=== PATIENT | female | born 1970 | race Caucasian/White ===

== ENCOUNTER → 2017-06-11 20:16 | Outpatient (CLI) | payer OTHER, SELFPAY | PROVIDERS: Family Provider Nurse Practitioner Family; PCP Nurse Practitioner Family; Visit Provider Internal Medicine Cardiovascular Disease | DX: G47.10 Hypersomnia, unspecified (principal); E66.01 Morbid (severe) obesity due to excess calories; Z68.41 Body mass index [BMI] 40.0-44.9, adult; I10 Essential (primary) hypertension; I27.20 Pulmonary hypertension, unspecified; R06.09 Other forms of dyspnea | CPT/HCPCS: 95810 ==

== ENCOUNTER → 2017-06-28 10:26 | Outpatient (CLI) | payer OTHER, SELFPAY ==
--- NOTE | 2017-06-28 10:28 | STEWCON_ITS ---
Reason For Study: Pulmonary HTN Stress Results Protocol: Randy Protocol Maximum Predicted HR: 172 bpm Target HR: 146 bpm% Max imum Predicted HR: 85 % DurationHeart Rate Stage (mm:ss) (bpm) BPCom ment Baseline 74 144/96 Definity 2 ML Diluted Given; No Chest Pain Randy Protocol Stage I 3:00 12 3 152/96No Chest Pain; Mild Dyspnea Randy Protocol Stage II 3:00 14 6 168/98No Chest Pain; Moderate to Severe Dyspnea Recovery 87 142/96 No Chest Pain Stress Duration: 6:00 mm:ss Maximum Stress HR: 146 bpmM ETS: 7 Baseline Echocardiogram Findings The estimated ejection fraction is 65 %. Stress Echo Wall motion Data Resting WMIntermediate WMStress WM Resting Wall Motion Wall Motion Stress No regional wall motion No regional wall motion abnormalities noted. abnormalities noted. EKG Data Normal intervals are noted. The patient exercised according to the regular Randy protocol for a total duration of 6:00. The maximum heart rate attained was 150 beats per minute. This was 87% of maximum predicted heart rate. The patient exercised into stage 3 of the Randy protocol. During stress, there were no ST or T wave changes noted to suggest ischemia. No clinical angina was noted. Interpretation Summary The study was technically difficult. Contrast injection was performed. The estimated ejection fraction is 65 %. Normal, adequate, treadmill echocardiogram. Negative for ischemia by EKG and echocardiographic anterior. No anginal symptoms noted. Rare PVCs noted. Appropriate blood pressure response to exercise. Below average exercise capacity for age. Test terminated due to dyspnea. Decreased sensitivity due to poor echo windows requiring Definity contrast. Doppler Measurements & Calculations TR max petey: 308.5 cm/sec TR max P.4 mmHg Ordering Physician: Juan C Fernandes Referring Physician: Juan C Fernandes Performed By: Brooklyn Bean, JANI, RVT
== END ==
PROVIDERS: Family Provider Nurse Practitioner Family; PCP Nurse Practitioner Family; Visit Provider Internal Medicine Cardiovascular Disease
DX: I10 Essential (primary) hypertension (principal); I27.20 Pulmonary hypertension, unspecified; R06.09 Other forms of dyspnea
CPT/HCPCS: 93017; 93350; Q9957; A4216; C8928

== ENCOUNTER → 2017-09-24 07:56 | Outpatient (CLI) | payer OTHER, SELFPAY ==
--- NOTE | 2017-09-24 16:36 | PFTCOMP_ITS ---
COMPLETE PULMONARY FUNCTION TEST INTERPRETATION Brief HPI: Patient is a 47 year old female, currently under the care of Brittanie Martino, who presents to [facility] for complete pulmonary function tests secondary to diagnosis of dyspnea on exertion. Respiratory therapist reports good effort and reproducible results. Interpretation: Forced expiration spirometry shows a mild large airways obstructive ventilatory defect with an FEV1 of 80% predicted. There is a significant bronchodilator response in FEV1 by ATS criteria. Spirograms are of good quality and plateau slowly, indicating slowly emptying areas of the lungs. The respiratory flow volume loop shows decreased expiratory flow rates at all lung volumes consistent with airway obstruction. Lung volumes by body plethysmography show a normal total lung capacity at 4.76 L , 99% predicted. All other lung volumes are within normal limits. Diffusion capacity by carbon monoxide is normal at 73% predicted. The airway resistance is normal. No previous pulmonary function tests were available for review. Impression: Fully reversible mild large airways obstructive ventilatory defect consistent with the diagnosis of asthma.
== END ==
PROVIDERS: Family Provider Nurse Practitioner Family; PCP Nurse Practitioner Family; Visit Provider Nurse Practitioner Acute Care
DX: R06.09 Other forms of dyspnea (principal)
CPT/HCPCS: 94060; 94726; 94729

== ENCOUNTER → 2017-10-09 13:10 | Outpatient (CLI) | payer OTHER, SELFPAY ==
--- NOTE | 2017-10-09 13:15 | CT_ITS ---
STUDY: CT CHEST WITHOUT CONTRAST REASON FOR EXAM: Female, 47 years old. Lower right lung nodule. RADIATION DOSAGE (If Supplied By Facility): CTDIvol = ( 19.85 ) mGy, DLP = ( 643.81 ) mGycm TECHNIQUE: Transaxial imaging was performed without the administration of intravenous contrast material. Coronal and sagittal 2-D MPR. Individualized dose optimization techniques were used for this CT. COMPARISON: None. FINDINGS: Supraclavicular: Normal. Thoracic body wall soft tissues: No acute process. Upper abdomen: Diffuse hepatic steatosis with probable hepatomegaly. No other acute process. Osseous structures: Multiple old right-sided posterior lateral rib fractures with incomplete healing, forming mildly hypertrophic pseudoarthrosis. This could easily be mistaken for pulmonary nodule in the right mid to lower lung on chest x-ray. Mild kyphoscoliosis and mild multilevel thoracic degenerative disc disease. Based on: Normal esophagus. No mass or lymphadenopathy. Heart: Normal heart size without effusion. Mild epicardial lipomatosis. No visible coronary calcifications. Aorta: Nondilated, three-vessel cervical arch branching. Pulmonary arteries: Nondilated. Lungs: There is patchy subpleural reticulation in portions of the anterior basilar segment of the right upper lobe, lateral basilar segments of the right lower lobe, posterior basilar right lower lobe, posterior basilar left lower lobe, and lateral pleural margins of the left upper lobe anterior segment. These chronic interstitial features may reflect prior smoking history. There is no fibrosis. No honeycombing or bronchiectasis. There are no isidoro features of centrilobular or paraseptal emphysema nor any significant pulmonary hyperlucency and hyperinflation that would indicate COPD. The central airways are normal. CT/Chest without Contrast IMPRESSION: There is no evidence of pulmonary nodule. Hypertrophic pseudoarthrosis of old right posterior rib fractures could easily be mistaken for a pulmonary nodule on a frontal chest x-ray. Chronic interstitial changes of the lungs, subpleural reticulation, multifocal, potentially reflecting prior smoking history. Clinically correlate. Hepatic steatosis with suspected hepatomegaly. Electronically Signed: Blas Kerr, at 18:44 EDT Tel , Service support ,
== END ==
PROVIDERS: Family Provider Nurse Practitioner Family; PCP Nurse Practitioner Family; Visit Provider Internal Medicine Critical Care Medicine
DX: R91.1 Solitary pulmonary nodule (principal)
CPT/HCPCS: 71250

== ENCOUNTER → 2017-10-16 22:34 | Outpatient (CLI) | payer OTHER, SELFPAY | PROVIDERS: Family Provider Nurse Practitioner Family; PCP Nurse Practitioner Family; Visit Provider Internal Medicine Critical Care Medicine | DX: G47.33 Obstructive sleep apnea (adult) (pediatric) (principal) | CPT/HCPCS: 95811 ==

== ENCOUNTER → 2018-03-29 11:23 | Outpatient (CLI) | payer OTHER, SELFPAY ==
[2018-01-10 07:12] VITALS: BMI 42.8
--- NOTE | 2018-03-29 | LES_PTH ---
PATIENT: DAGOBERTO KOENIG LOC: [facility] U#:[id number] AGE/SX: 54/F ROOM: RE03/29/[address]: Dr. Shyann Weinstein DPM : 1970 BED: DIS: SPEC #: [id number] RECD: 03/29/18 13:08 STATUS: QASIM CAITLYN #: [id number] WILLIAM: 03/29/18 00:[address]: Shyann Weinstein DEPT: SURGICAL PATHOLOGY RECD BY: Loki Guaman ENTERED: 03/29/18 13:09 SP TYPE: Lesion OTHR DR: Dr. Mustapha Gonzales MD Tissues: A - Skin of ankle and foot B - Skin of ankle and foot Procedures: Special Stain Group I Surgery Specimen Level IV AFB Stain (control) GMS Stain (control) HEADER OPERATION: Tissue biopsy PRE-OP DIAGNOSIS: I89.8, M30.8 TISSUE SUBMITTED: A - Lateral right ankle, B - Medial right ankle MICROSCOPIC DIAGNOSIS A. Right lateral ankle, punch biopsy: Consistent with polyarteritis nodosa. B. Right medial ankle, punch biopsy: Consistent with polyarteritis nodosa. AM:tamela 04/10/18 COMMENT This case was seen in consultation with Dr. Wynn of [place] and the above diagnosis is rendered. Reference is made to the patient's previous left leg biopsy from [facility] ([id number]) in which diagnosis of polyarteritis nodosa was rendered. Special stains for acid fast bacilli and fungal organisms are negative for microorganisms; matched controls are appropriate. Case has been reviewed in consultation with Dr. Macedo and Dr. Jerez who concurs with the above diagnosis. IDC:[email or web address] MICROSCOPIC DESCRIPTION Slides are reviewed. GROSS DESCRIPTION A - Received in fixative is one container labeled with the patient's name and designated lateral right ankle. The specimen consists of two irregular fragments of pink-glasgow soft tissue that in aggregate measure 1 x 0.6 x 0.3 cm. The larger fragment is bisected and submitted along with the smaller fragment in one cassette. B - Received in fixative is one container labeled with the patient's name and designated medial right ankle. The specimen consists of two cylindrical fragments of glasgow-white soft tissue. Each core measures 0.7 cm in length and averages 0.4 cm in diameter. The larger fragment is bisected in a lengthwise fashion and totally submitted with the other fragment in one cassette. / AM:tamela 03/29/18 TC:2 CPT: 39628 x2, 41243 x4 ADDENDUM ADDENDUM ADDENDUM ADDENDUM ADDENDUM ADDENDUM ADDENDUM ADDENDUM ADDENDUM ADDENDUM ADDENDUM ADDENDUM 04/24/2018 11:43 ADDENDUM 04/24/2018 11:43 ADDENDUM 04/24/2018 11:43 ADDENDUM 04/24/2018 11:43 ADDENDUM 04/24/2018 11:43 This addendum is added to incorporate an outside pathology consultation report. The case was examined at [facility] (#[id number]) and the following diagnosis was rendered. A. Skin, right lateral ankle, punch biopsy: Consistent with polyarthritis nodosa. B. Skin, right middle ankle, punch biopsy: Consistent with polyarthritis nodosa. Please see complete above mentioned consultation report in EMR
== END ==
PROVIDERS: Family Provider Internal Medicine Infectious Disease; PCP Internal Medicine Infectious Disease; Referring Provider Podiatrist Foot & Ankle Surgery; Visit Provider Podiatrist Foot & Ankle Surgery
DX: M00-M99 Diseases of the musculoskeletal system and connective tissue (principal); I89.8 Other specified noninfective disorders of lymphatic vessels and lymph nodes
CPT/HCPCS: 88305; 88312

== ENCOUNTER → 2018-06-20 09:56 | Outpatient (CLI) | payer OTHER, SELFPAY ==
[2018-01-10 07:12] VITALS: BMI 42.8
--- NOTE | 2018-06-20 10:57 | PFTCOMP_ITS ---
COMPLETE PULMONARY FUNCTION TEST INTERPRETATION Brief HPI: Patient is a 48 year old female, currently under the care of myself, who presents to [facility] for complete pulmonary function tests secondary to diagnosis of asthma. Respiratory therapist reports good effort and reproducible results. Interpretation: Forced expiration spirometry shows no large airways obstructive ventilatory defect with an FEV1 of 99% predicted. There is no significant bronchodilator response by strict ATS criteria. Spirograms are of good quality and plateau normally. The respiratory flow volume loop shows a normal pattern. Lung volumes by body plethysmography show a normal total lung capacity at 4.14 L, 87% predicted. All other lung volumes are within normal limits. Diffusion capacity by carbon monoxide is normal at 94% predicted. The airway resistance is normal. No previous pulmonary function tests were available for review. Impression: Normal pulmonary function testing.
== END ==
PROVIDERS: Family Provider Internal Medicine Infectious Disease; PCP Internal Medicine Infectious Disease; Referring Provider Internal Medicine Critical Care Medicine; Visit Provider Internal Medicine Critical Care Medicine
DX: J45.40 Moderate persistent asthma, uncomplicated (principal)
CPT/HCPCS: 94060; 94726; 94729

== ENCOUNTER → 2018-09-26 | Outpatient (CLI) | payer OTHER, SELFPAY ==
[2018-10-04 11:41] LABS: HPV APTIMA, High Risk Negative (Negative)
== END | disposition home or self-care (01) ==
LOC: BFHLAB 08:56
PROVIDERS: Family Provider Family Medicine; PCP Family Medicine; Visit Provider Family Medicine
DX: Z12.4 Encounter for screening for malignant neoplasm of cervix (principal)
CPT/HCPCS: 88175; G0145

== ENCOUNTER 2019-04-28 09:00 | Outpatient (RCR) | payer OTHER, SELFPAY ==
[2019-04-02 08:32] VITALS: BMI 42.8
--- NOTE | 2019-04-28 09:05 | BH.SGPN.GN ---
Behaviors/Verbalizations/Mental Status: []Client alert and oriented, neatly dressed and groomed. Eye contact good. Motor activity appropriate. Speech within normal limits. Affect flat-tearful, mood depressed. Thoughts linear, logical, no signs of hallucinations or delusions. Reviewed client?s symptom tracker, no risk for suicidal ideation, plan, or intent as of 04/28/19. Client Response/Progress/Benefit: []Client responded well to session, receptive to positive support and feedback. Client's first day of IOP tx. Client reports feeling sad today and was opening to sharing a little bit about herself. Client did not go into detail, but shared she has been living with her mother because of her mental health and difficulty functioning. Client reported she is new to addressing her mental health and she did not want to come to the IOP program, but gave it a try. Client was tearful throughout session and was receptive to emotional support provided by therapist and group members. Client appeared to benefit from normalizing her emotions, connecting with peers, and receiving emotional support. Will continue IOP tx to prevent decompensation, maintain safety, and learn healthy coping skills. Narrative Note: []
--- NOTE | 2019-04-28 11:18 | BH.SGPN.GN ---
Behaviors/Verbalizations/Mental Status: []Client alert and oriented, casually dressed and groomed. Eye contact good. Motor activity appropriate. Speech within normal limits. Affect congruent, mood depressed. Thoughts linear, logical, no signs of hallucinations or delusions. Client Response/Progress/Benefit: []Client?engaged during session AEB client providing some contributions throughout group session, taking notes, and actively listening during thought challenging activity. Client acknowledged the importance of needing to have awareness and put forth the effort to challenge, reframe, and replace distorted thought patterns. Connected with comments regarding difficulties in challenging use of negative self-talk. Client worked cooperatively with group to challenge example distorted thought and was attentive in learning strategies to combat distortions. Client reported connecting with distortion of disqualifying the positive most and identified a distorted thought she will practice reframing. Client seemed to benefit from increased awareness of cognitive distortions and practicing reframing distorted thoughts. Client to continue IOP level of care to challenge negative thoughts, reduce depression and anxiety, and prevent decompensation. Narrative Note: []
--- NOTE | 2019-04-28 13:29 | BH.COMM ---
Communication Note - Communication with Client Communication Note: This therapist checked-in with client after her first day of IOP. Therapist introduced self as client's individual counselor and answered client's questions about the program.
--- NOTE | 2019-04-30 08:20 | BH.NA_ITS ---
Physical Data - Vital Signs Pulse Rate: 82 Respiratory Rate: 18 Blood Pressure: 120/68 - Height/Weight Height: 1.6 m Weight:: 115.212 kg Weight in Pounds: 254.0 lbs Current Medication Compliance - Medication Compliance Do you take your medication as prescribed?: Yes Nutritional History - Appetite Nutritional Instructions:: If client shows signs of a swallowing problem, weight change of 10 pounds or more in the last month, or is on a diabetic diet, the physician will review and request a dietitian consult, as appropriate. All unintentional weight loss will be referred to the physician for decision on need for dietitian consult. Describe your appetite:: Good Have you noticed a change in your eating habits lately?: Yes Additional nutritional information:: Client takes a steroid chronically, somtimes high-dose. Client states she has had large amount of weight gain while taking steriod medication for her polyarteritis nodosa. Functional Assessment - Sleep Pattern Describe any problems with sleeping: Client states she has noticed her sleep has improved since started Effexor. Client states she used to sleep only 2-4 hours per night and now is sleeping 6-8 hours per night. - Activities Motor Activity:: Functional Sensory/Communication Assess - Vision Problems Do you have any vision problems?: Glasses - Communication Problems Do you have difficulty understanding what people are saying?: No Medical Problems/History - Cardiac Conditions Cardiovascular: Hypertension, Pulmonary hypertension Comments:: heart murmur - Respiratory Conditions Respiratory: Asthma, Other (See comments) Comments:: obstructive sleep apnea - Hematologic Conditions Hematologic: Hx of blood clot Comments:: history of PE's in January 2019 - Musculoskeletal Conditions Musculoskeletal: Other (See comments) Comments:: polyarteritis nodosa - Pain Assessment Do you have acute or chronic pain?: Yes - back pain, sciatica - Family History Family History: Family History (Last Reviewed 04/02/19 @ 08:24 by Meghan Knutson) Father Sudden cardiac CAD (coronary artery disease) Other Asthma Heart disease High cholesterol History of hormone disturbance Hypertension Myocardial infarction Severe allergy Surgical History - Surgical History Have you had any surgeries? If so, list type and date:: Yes - right knee ACL, balloon sinuplasty, endometrial ablation, appendectomy Substance Abuse - Substance Abuse Please describe substance abuse in the last 30 days:: Client states in the fall, she was heavily drinking, mostly whiskey, but does not know how much. Client states she does not remember much of what she has done in the last 6 months. Client states her brought up her drinking amount to her and she stopped drinking alcohol completely and does not have any in the house. Client denies tobacco and drug use. Mental Status Summary - Mental Status Significant Findings/Observations on Appearance and Mood:: Client is alert and oriented x 4. Client casually groomed, good hygiene. Client very pleasant and cooperative for assessment. Client makes good eye contact and has good attention for assessment. Client's voice rate and volume normal, speech clear and coherent. Client appears mildly depressed. Client has appropriate affect. Client makes logical associations and has normal processing. Client denies delusions/hallucinations. Client denies SI. Client states she does not remember much of what she has done in the last 6 months due to medication fog and just in the last several weeks has gotten medications sorted out with her multiple providers and feels she is improving. Client good historian for medical history. Suicide Assessment - Suicidal Ideation Are you currently or have you been suicidal in the past?: Yes Suicidal Intentional Rating Scale (SIRS): Suicidal thoughts (past) - denies SI at this time. Client states she has passive thoughts of last week but has not since. Physician Notification: If Active suicidal thoughts/Will not contract for safety is checked, contact physician and document in the Physician Notification section below. Past Psychiatric History - MH Treatment Hx Past Psychiatric Medications:: Klonopin, Clonidine, Cymbalta, Effexor Age of first mental health symptoms: Client states she was first diagnosed with depression around 2007 after her twin girls were born. Client states soon after their , she started having symptoms of her polyarteritis nodosa and began seeing many different doctors and her depression began. Current providers for mental health treatment (counselor, psychiatrist, family preservation caseworker, etc.): [facility] to coming to [facility] program. Fall Risk Assessment - Age Age: Less than 60 - Mental Status Mental Status: Willing & able to ask for assistance when needed - Physical Status Physical Status: No problems - Impairments Impairments: None - Elimination Elimination: Continent AND independent - Gait or Balance Gait or Balance: Walks independently - Hx of Falls History of falls in the past 6 months: No known history - Medications/Substances Psychotropics:: Antidepressants Medications/substances used within the past 24 hours or ordered to administer: 1-2 of the medications/substances listed above - Total Score Total Points:: 1 RN Summary of Impressions - Impressions Recommendations: Include psychiatric and medical issues, treatment planning recommendations, and discharge planning needs. 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 Client states she sees her PCP about every 2 weeks who is really helping her manage her medication list. - Level of Care How do the client's current symptoms and functional deficits support need for this level of care?: Client states she has had issues with depression for several years, but states the last 6 months have been really hard. Client states she does not have much memory of a lot of the events of the last 6 months due to medication fog. Client becomes tearful and states I have done some really awful things to my the past few months and I'm just not sure if he will forgive me or not. Client states she is currently staying with her mother because she was mixing up her medications and her anxiety was causing her to contact her all the time when he was not at home and he was not able to get his work done. Client states a current stressor is her does not really talk to her much, but does talk to her mother about her care and does go to her doctor appointments with her. Client states it is also stressful for her that she is not currently spending time with her daughters as she is not living at home. Client states her medical issues have caused a lot of stress and caused anxiety and depression over the years. Client reports daily feelings of panic and not wanting to be left alone, fear, isolation, decreased energy, obsessive behavior, and decreased self esteem. Client denies SI. IOP will promote gains and prevent further decompensation while providing social support and skills training.
[2019-04-30 12:39] VITALS: BP 120/68; PULSE 82; RESP 18
--- NOTE | 2019-04-30 12:55 | BH.PSY.EVA_ITS ---
Psychiatric Evaluation - Initial Evaluation Initial Evaluation: Chief Complaint: [] I hit rock bottom due to confusion and the dosage of my medicines. History of Present Illness: [] Patient is a 49-year-old female with a history of depression and anxiety and severe polyarteritis nodosa who was referred to the [facility] behavioral health program due to worsening anxiety and depression. The patient was diagnosed with polyarteritis nodosa in 2007 and since that time she states that she has been significantly depressed. She feels her depression is due to the loss of ability to participate in the activities she used to enjoy and the chronic, severe pain that her illness causes. She is currently in palliative care at [facility] for her polyarteritis nodosa. She has been from her of 15 years for the past several weeks. Patient states that the separation is due to her being excessively dependent on her and not wanting to be left alone at home in the past few months. In addition the patient had spent a lot of money shopping and because financial stress in the family. She says that she lied to her mother and her about why she needed money and lied about her spending of the money. The patient has gaps in her memory for these activities. At the time of these activities the patient was taking high doses of steroids up to 60 mg of prednisone a day. In addition at one point she messed up how she took her medications and then became even more severely depressed and anxious and dependent. She has been isolating herself and feeling panicky. She has not worked since January 28, 2019. 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 On January 28, 2019 she was diagnosed with a cluster of pulmonary emboli and for that reason it was placed on medical leave from work. She is currently living with her mother since she has been for help from her . She has a twin 12-year-old daughters who are living with the now. The patient misses work and hopes to return in June 2019. The patient was constantly texting her whenever he leaves the house and she is alone at home prior to their separation. She says she was never nervous about being alone prior to her illness. In addition the patient was on Klonopin and clonidine for a long time and these medications were weaned over the last several weeks. She feels that when she was on the Klonopin 3 times daily she was also behaving in unusual ways. She has been completely off these medicines for 3 weeks now and has improved. She was having bad sleep disorder issues before being weaned off these medicines but now the sleep is the best it has been in several years. Her new medicines are helping her sleep. Her biggest stress now is being away from her and children. She also was engaging in head rubbing but this habit has improved also. She is feeling much less restless and anxious now than she was prior to weaning off the Klonopin and clonidine. She has been depressed off and on since her diagnosis but her depression worsened in the past 6 months. She is tearful at times and mourning the loss of her ability to run 5 miles a day and ride her horse that she owns regularly. She is unable to do these things and she grieves the loss of this. Her appetite is increased being on the steroids and she has gained a lot of weight in the past few years. Her energy is low and her concentration is decreased. She feels guilty over the money that she took from her and mother. She is anxious but less than she was a few weeks ago. She was having panic attacks if her left the house but she has not had a panic attack for the past 10 days. She endorses feeling worthlessness but her hopelessness is only occasionally now. She she was having thoughts that if she her family would be better off and these are still somewhat fleeting. She denies any suicidal or homicidal ideation. She denies hallucinations or delusions. She did have the increase shopping in February and March 2019 which has caused financial stress. This it could have been secondary in part to her high steroid doses at the time. Current Psychiatric Medications: [Doxepin 50 mg p.o. daily (x2 weeks, PCP); Effexor XR 75 mg p.o. daily (x2 weeks, from rotary furnace tender).] Past Psychiatric History: [] Patient has no psych admits and no suicide attempts. She has only been depressed since being diagnosed with polyarteritis nodosa 13 years ago. She denies any depression prior to that time. She sees a counselor at the palliative care program which is helpful. She was first depressed in 2007 secondary to not being able to do the hobbies that helped her feel good before her illness. She first took psych meds in 2007. Past meds include Zoloft, Klonopin and the current meds. Substance Use History: [] Smoker, no marijuana and no other drugs. Alcohol use was a problem in January 2019 when the patient began drinking up to 1/5 a day of whiskey for about 1-1/2 months. She quickly realized this was a problem because she was having blackouts and falls and thus she has been completely sober from alcohol since February 2019. No rehab ever. Allergies: [] Sulfa, amoxicillin, CellCept Medications: [Bracco inhaler, albuterol as needed, oxygen as needed, potassium, famotidine, lisinopril, leflunomide, metoprolol tartrate, dapsone, methadone 5 mg 2 times a day, methylprednisone 4 mg daily, Eliquis 5 mg 2 times a day, furosemide 40 mg 2 times a day, betamethasone on scalp 2 times a day and psych meds as noted above under present illness] Past Medical History: [] Polyarteritis nodosa since 2007 which has progressed from one leg to both legs and causes severe pain. She is perimenopausal, hypertension, obesity. She had sinus issues in the past and was treated with a balloon sign U plasty. She had a cluster of pulmonary emboli for which she is on Eliquis now. She had a uterine ablation in 2013 for heavy periods. She was on high-dose prednisone for 13 years prior to being switched to methyl prednisone. She is a 1 para 2 Ab0 with 2 twin 12-year-old girls. Family Psychiatric History: [] There is 8984 years old and her father at age 59 of a heart attack. Maternal grandmother and patient's sister had depression and anxiety. Family history is otherwise negative. No suicides. No substance issues. Personal/Social History: [] Patient was born and raised in [place] and describes her childhood as (great). Her mother and grandmother were loving and wonderful to the patient. Her father was a physician and was never home and when he was home he was not very demonstrative. The patient does feel there that her father left her however. She denies any physical, verbal, or sexual abuse ever. The patient is the youngest in the family and has a sister 8 years older than her brother 10 years older and a brother 4 years older. School was okay for her and she got good grades. 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 She worked in music therapy up until recently when she was forced to go on leave for medical reasons. She was at the age 35 and has twin daughters with her . They are currently see present illness above. She had a serious boyfriend before her also. 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 Legal History: [] Negative. No DUIs. Review of Systems: [] Lots of pain from her polyarteritis no nodosa and other symptoms for which she is treated by her rotary furnace tender and her primary care doctor Vital Signs: [] Mental Status Examination: [] Patient is a 49-year-old female who is obese and has hair that is very short and appears to be growing and after hair loss from chemotherapy. She is casually dressed and groomed with good hygiene. She has good eye contact and no psychomotor agitation or retardation. Her speech is normal rate and rhythm and fluent with no pressure. Her mood is depressed. Affect is constricted and teary at times. Thought process is goal- directed and organized. Thought content: No evidence of suicidal ideation, homicidal ideation, hallucinations or delusions. She has on occasion had thoughts that her family would be better off if she was gone but these have improved lately. Reality testing is intact. Intelligence is average or above average. Judgment is intact. Insight: Some present. Impulsivity: Low to moderate depending on the dose of steroids she is on. 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 Obstructive sleep apnea (does not use CPAP) [place] IV: [] Primary support issues and financial and work issues Plan: [] The patient will start the IOP program at [facility] in behavioral health as the structure, support, education, group and individual therapy will hopefully prevent worsening of the patient's symptoms that could require hospitalization. The risk, options, possible complications and side effects of the medication were discussed with the patient and she understands and accepts these. She understands that the use of high-dose steroids in the past may well have contributed strongly to her overspending of money and other behavior out of character for her. She understands that if she used her CPAP she might be less depressed if her sleep would improve by using it. The patient is improved on Effexor XR 75 mg p.o. daily that she is only been on for 2 weeks. For this reason no changes were made in medication today. It also appears that the patient's Klonopin and clonidine and her mixing up her meds were a big factor in her exacerbation of symptoms several weeks ago. Patient agrees to decrease or eliminate caffeine use also. Continue to follow-up with h er outpatient medical and psych providers.
--- NOTE | 2019-04-30 13:13 | BH.DR.ITP ---
Initial Treatment Plan - Patient Information Visit Information: ADMISSION DATE: EXPECTED LOS: 4-6 weeks - Problems/Symptoms Problem #1:: depression Symptom:: rumination, sadness, anhedonia, thoughts of Problem #2:: ANxiety Symptom:: Fear of being alone, worry, fatigue
--- NOTE | 2019-04-30 14:40 | BH.MDN ---
Multi-Disciplinary Note - Note 60-min Individual Time Started:: 09:20 Date: 04/30/19 Purpose of session/treatment goals addressed:: The purpose of this session was to gather information on client's current stressors, symptoms, and treatment goals. Another goal was to build rapport and provide psychoeducation. Eye Contact:: Fair Motor Activity:: Restless - often rubbing her head which pt notes is anxiety related Appearance:: Neat Speech:: Rapid, Other - circumstantial Mood:: Anxious, Depressed Affect:: Congruent - tearful Thoughts:: Racing, No evidence of hallucinations/delusions noted Staff Interventions:: Therapist used active listening and open-ended questions to explore client's current stressors, symptoms, history, and treatment goals. Therapist used strengths perspective to build rapport and help client identify personal resilience factors. Therapist provided emotional support and normalized client's symptoms to reduce shame. Therapist provided psychoeducation on depression, anxiety, and medication-induced mental health symptoms. Therapist taught calming strategies to client and rehearsed them with client to reduce anxiety in the moment. Client Response:: Client responded well to session open to meeting with therapist. Client was tearful and restless throughout session. Client stated her mental health symptoms started when all her medical issues began. Client has been in and out of the hospital since her twin daughters were born. Client reported my girls have never seen me healthy. Client has been on numerous medication trials including a long-term trial of prednisone and chemotherapy drugs. Client shared I've completely changed personalities and that her is done dealing with me. Client has been living with her mother and is very tearful and sad about missing her home and daughters. Client shared she has done things that are so not me and I can't even remember all of it. Client reported she has stolen money from her family, yelled, hallucinated, drank excessively, and been mean. Client stated why would I do that and did not seem to be aware that these behaviors could all potentially be medication induced. Client receptive to psychoeducation on depression, anxiety, and medication induced symptoms. Client stated she has a lot of guilt about what she has put her family through. Client endorses depression and stated she cannot do the things she used to enjoy. Client stated she was very hesitant about coming to [facility], but she hopes it can help client get support. Client receptive to practicing calming strategies which appeared to help reduce client's head rubbing and made client smile and laugh. Risks/Concerns:: Client denies any active suicidal ideations, plan, or intent as of 04/30/19. Client reports passive thoughts of , but denies ever having intent to act on these thoughts. Currently living with her mother which is a protective factor. Progress Toward Goals/Plan:: Client's second day of IOP. Very tearful and anxious. Client endorses a depressed mood with anhedonia, passive thoughts of , negative thinking, guilt, crying spells, racing thoughts, and difficulty concentrating. Client reports multiple stressors including health issues, marital conflict, family discord, and inability to work. Client receptive to emotional support from therapist and willing to engage in IOP. Will continue IOP tx to prevent further decompensation, maintain safety, and increase healthy coping skills. Time Stopped:: 10:30
--- NOTE | 2019-04-30 14:45 | BH.MTP ---
Master Treatment Plan - Patient Information Program Physician:: Dr. 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 Description of Barriers: Client reports fear of being alone and shared her medical and mental health symptoms have caused issues in her marriage. Client stated her is ?very angry with me? and client is not currently living at home. Client?s one daughter is upset with client and is not speaking with her very much. Client reports excessive guilt about things client did while depressed and experiencing medication-induced symptoms. Client has been on prednisone and chemotherapy drugs for an extensive period of time which likely impacted client's ability to regulate her emotions and make sound decisions. Client reports memory issues and difficulty concentrating. Client used to be very active and enjoy many things in life, but currently reports finding no marylou in things. Client isolates herself and reports feeling shame. Functional Impact: Client is a 49-year-old woman with a history of MDD and GRAEME. Client was referred by her [facility] health care social worker due to worsening depression and anxiety. Client is diagnosed with Polyarteritis Nodosa and receives palliative care for this. Client reports in the last year her depression has been the most significant it has been in her life. Client had a flare-up of medical symptoms which resulted in two hospitalizations, weight gain, loss of independence, and daily panic attacks. Client currently endorses isolative behaviors, excessive fear, crying spells, lack of motivation and energy, increased appetite, compulsive behaviors (head rubbing), anhedonia, restlessness, ruminations, poor concentration, issues with sleep, and excessive guilt. Client reports fear of being alone and shared her medical and mental health symptoms have caused issues in her marriage. Client reported having hallucinations and potential manic symptoms several months ago. Client stated she has done things I would never ever do and has little memory of them. Client has been on prednisone and chemotherapy drugs for an extensive period of time which likely impacted client's ability to regulate her emotions. Client is no longer able to work and her symptoms are impacting her social and familial functioning. Goal Relevant Strengths/Supports: Client presents as a kind, open-minded, and intelligent woman. 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 Client's mother is very supportive and knowledgeable about mental health and medication side effects. Client shared her pedro keeps her hopeful and her daughters are her reason to live. Client is resilient and has been through numerous hardships in life including ongoing medical issues. - Objectives Objective #1 Stated Objective: Client will identify at least 2-3 negative self-talk messages used to reinforce depression/guilt and replace thoughts with positive, realistic messages. Interventions: Therapist will help client identify distorted, negative beliefs about self and replace with more realistic, affirmative messages. Therapist will use CBT to help client increase insight to the connection between thoughts, emotions, and behaviors. Therapist will help client increase awareness of unjustified guilt and how this has impacted client's mental health. Therapist will encourage client to practice thought challenging and self-compassion. Discharge Criteria: Client will have achieved this goal when can verbalize at least 2 negative self-talk messages and effectively replace those thoughts with affirmative messages. Target Date: 06/09/19 Review Date: 05/28/19 Status: open Objective #2 Stated Objective: Client will learn and utilize 2-3 healthy coping strategies to better manage depressive symptoms as shown by preventing decompensation on client's DSM-5 scores for depression. Interventions: Through group and individual sessions, therapist will help client identify triggers and warning signs of depression and emotional dysregulation including emotional, physical, and behavioral changes. Therapist will teach client various coping skills to manage her symptoms and give client tangible resources to use to regulate emotions. Therapist will use cognitive restructuring techniques and help client gain awareness of negative thoughts that reinforce guilt and depression. Therapist will provide psychoeducation on maintenance cycles and help client learn ways to break unhealthy maintenance cycles. Therapist will help client incorporate behavioral activation and assist client in setting SMART goals. Discharge Criteria: Client will have met this goal when she can report learning and using at least 2 coping skills to manage depressive symptoms. Additionally, client will have met this goal if she can prevent decompensation of depressive symptoms. Target Date: 06/09/19 Review Date: 05/28/19 Status: open Problem/Goal #2 - Problem/Goal #2 Stated Goal:: Client will reduce overall frequency, intensity, and duration of anxiety so that daily functioning is not impaired. Description of Barriers: Client reports fear of being alone and shared her medical and mental health symptoms have caused issues in her marriage. Client stated her is ?very angry with me? and client is not currently living at home. Client?s one daughter is upset with client and is not speaking with her very much. Client reports excessive guilt about things client did while depressed and experiencing medication-induced symptoms. Client has been on prednisone and chemotherapy drugs for an extensive period of time which likely impacted client's ability to regulate her emotions and make sound decisions. Client reports memory issues and difficulty concentrating. Client used to be very active and enjoy many things in life, but currently reports finding no marylou in things. Client isolates herself and reports feeling shame. Functional Impact: Client is a 49-year-old woman with a history of MDD and GRAEME. Client was referred by her [facility] health care social worker due to worsening depression and anxiety. Client is diagnosed with Polyarteritis Nodosa and receives palliative care for this. Client reports in the last year her depression has been the most significant it has been in her life. Client had a flare-up of medical symptoms which resulted in two hospitalizations, weight gain, loss of independence, and daily panic attacks. Client currently endorses isolative behaviors, excessive fear, crying spells, lack of motivation and energy, increased appetite, compulsive behaviors (head rubbing), anhedonia, restlessness, ruminations, poor concentration, issues with sleep, and excessive guilt. Client reports fear of being alone and shared her medical and mental health symptoms have caused issues in her marriage. Client reported having hallucinations and potential manic symptoms several months ago. Client stated she has done things I would never ever do and has little memory of them. Client has been on prednisone and chemotherapy drugs for an extensive period of time which likely impacted client's ability to regulate her emotions. Client is no longer able to work and her symptoms are impacting her social and familial functioning. Goal Relevant Strengths/Supports: Client presents as a kind, open-minded, and intelligent woman. 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 Client's mother is very supportive and knowledgeable about mental health and medication side effects. Client shared her pedro keeps her hopeful and her daughters are her reason to live. Client is resilient and has been through numerous hardships in life including ongoing medical issues. - Objectives Objective #1 Stated Objective: Client will identify 2-3 anxiety triggers and 2 calming coping skills to use when feeling anxious Interventions: Therapist will help client increase awareness of anxiety triggers and educate client on the ways anxiety impacts overall health. Therapist will teach client various calming strategies to promote emotional regulation and reduction of anxiety. Therapist will assist client in identifying stressors and teach client techniques to reduce, remove, or accept stressors to reduce anxiety. Therapist will discuss the importance of self-care and self-compassion. Discharge Criteria: Client will have accomplished this goal when can report at least 2 triggers for anxiety and state using 2 calming strategies to manage symptoms. Target Date: 06/09/19 Review Date: 05/28/19 Status: open Objective #2 Stated Objective: Client will identify 2-3 cognitive distortions that lead to rumination and learn 2-3 ways to manage these thoughts to better manage anxiety. Interventions: Therapist will provide education on the most common cognitive distortions and teach client the connection between thoughts, emotions, and feelings. Therapist will assist client in identifying, challenging, and replacing dysfunctional thoughts with positive, more realistic thoughts. Therapist will use CBT and DBT techniques to help client gain awareness of thinking errors and learn how to more effectively handle negative thoughts. Discharge Criteria: Client will have accomplished this goal when can identify at least 2 cognitive distortions and at least 2 coping skills to manage negative thoughts. Target Date: 06/09/19 Review Date: 05/28/19 Status: open
--- NOTE | 2019-05-02 09:00 | BH.SGPN.GN ---
Behaviors/Verbalizations/Mental Status: []Client alert and oriented, casually dressed and groomed. Eye contact fair. Motor activity appropriate. Speech within normal limits. Affect flat-tearful, mood depressed. Thoughts linear, logical, no signs of hallucinations or delusions. Reviewed client?s symptom tracker, client's scores were above her baseline. Client was 4/5 for thoughts of suicide and 1/5 for risk of suicide. Client's individual therapist will follow up with client to further assess risk. Client Response/Progress/Benefit: []Client responded well to session, tearful throughout, but receptive to supportive feedback from peers. Client reports feeling hopeless today. Client shared her told client that he wants a divorce. Client and her have been living separately for a few weeks due to client's worsening mental health state. Client shared she does not know what to do next and feels lost. The group offered supportive statements to client and words of hope. Client was receptive and shared her appreciation. Client able to identify mental health wins despite this stressor. Client reported she has been hallucination free for three weeks now and she got to spend more time with her daughters yesterday. Appeared to benefit from receiving emotional support from the group and coming into IOP rather than isolating. Will continue IOP tx to prevent decompensation, maintain safety, and increase healthy supports. Narrative Note: []
--- NOTE | 2019-05-02 14:50 | BH.MDN ---
Multi-Disciplinary Note - Note 45-min Individual Time Started:: 11:30 Date: 05/02/19 Purpose of session/treatment goals addressed:: The purpose of this session was to address current symptoms, triggers, and stressors. Another goal was to provide emotional support and safety plan. Eye Contact:: Fair Motor Activity:: Restless - rubbing her head and hands shaking Appearance:: Casual Speech:: Rapid Mood:: Anxious, Depressed Affect:: Congruent - tearful throughout session Thoughts:: Racing, No evidence of hallucinations/delusions noted Staff Interventions:: Therapist used active listening and open-ended questions to explore client's current stressors, symptoms, and triggers. Therapist provided emotional support and listened as client shared her struggles. Therapist assessed client's suicidal ideations and helped client plan for safety. Therapist called client's mother to inform her mother of client's current SI and safety plan. Client Response:: Client receptive to meeting with therapist. Client entered session tearful and restless AEB rubbing her head. Client shared her told her last night that he was done and wanted a divorce. Client stated she has never felt so low and client is currently unable to see any hope. Client is not able to work and stated what am I supposed to do...where will I live. Client is also worried about her relationship with her daughters. Client endorses increased passive suicidal ideations and did not sleep last night. Client's plan this weekend is to go home to her mother's house and potentially see her daughters this weekend. Client denies access weapons or stockpiles of medication. Client's mother has been regulating client's medications. Client was restless and rubbing her head throughout session. Client reports excessive guilt and feels like she deserves this because of the things client has done. Receptive to gentle thought challenging and emotional support provided by therapist. Willing to plan for safety and client reported I'd never do anything to hurt myself at my mom's house. Client and therapist reviewed some healthy coping skills client could use to cope over the weekend. Client receptive to therapist calling client's mother. Risks/Concerns:: Client denies any active suicidal ideations, plan, or intent as of 05/02/19. However, client reports increased passive suicidal ideations and hopelessness since her stated wanting a divorce. Client stated I can't see any light but reported she would never do anything to harm herself. Protective factors include staying with her mother and her pedro. No weapons at home. Willing to plan for safety and go to the ER should she no longer feel able to keep herself safe. Progress Toward Goals/Plan:: Client presents with worsening depressive symptoms and increased passive suicidal ideations today. Client's told client he wanted to file for divorce. Client reports hopelessness, was tearful throughout session, and endorses racing thoughts. Client's functioning continues to be significiantly impaired due to her mental health and medical conditions. Client unable to work and is fearful about how she will sustain herself in the future. To prevent further decompensation that may require hospitalization, it is recommended client continue IOP tx. Time Stopped:: 12:08
--- NOTE | 2019-05-02 14:53 | BH.COMM ---
Communication Note - Communication with Client Communication Note: Per client's request, this therapist called client's mother to provide information on client's current SI and discuss safety. Client denies active suicidal ideations, plan or intent as of 05/02/19, but client states having more thoughts today of ?why bother?I?d be better off gone.? Therapist informed client's mother about client's report of ability to maintain safety and that client shared she could call crisis or go to the ER if she could not keep herself safe. Therapist encouraged mother to check-in with client throughout the weekend and reviewed ways to keep the environment safe.
--- NOTE | 2019-05-07 09:04 | BH.SGPN.GN ---
Behaviors/Verbalizations/Mental Status: []Pt alert and orient x3. Eye contact good. Motor activity is appropriate. Appearance is casual. Speech is Appropriate. Mood is depressed, anxious. Affect is congruent. Thoughts are linear and logical. No evidence of psychosis. Reviewed daily check in sheet and pt indicated scores of 3/5 for suicidal ideation as well as 2/5 for risk. This is consistent with pt baseline and pt is willing to follow-up with individual therapist for further assessment prior to leaving for the day. Client Response/Progress/Benefit: []Pt responded well to session, listening throughout discussion and providing supportive feedback to the group. Tearful throughout discussion and reports emotion for the day as ?lost? and indicated that this is due to ongoing difficulties in adjusting to the recent changes in her marriage and homelife. Expressed this as her current stressor. Pt did well to identify that despite the numerous stressors she is facing, she continues to have positives to be grateful for and is attempting to shift her focus to the positives when feeling low or overwhelmed. Identified current mental health win as being receptive of help from others and not giving up. Additional win identified as successfully spending time with her daughters without fighting with her while doing so. Benefited from support of the group and identifying personal areas of resilience. Progress noted in pt ability to challenge negative thoughts and successfully manage emotions when becoming overwhelmed in group. Recommended continued IOP tx to promote healthy change behaviors, increase distress tolerance and emotion regulation, and reduce overall mental health sx severity. Narrative Note: []
--- NOTE | 2019-05-07 10:18 | BH.SGPN.GN ---
Behaviors/Verbalizations/Mental Status: []Client alert and oriented, casually dressed and groomed. Eye contact good. Motor activity restless-rubbing her head. Speech within normal limits. Affect constricted, mood dysthymic. Thoughts linear, logical, no signs of hallucinations or delusions. Client Response/Progress/Benefit: [] Client was an active participant AEB engagement in group activity and providing good input during discussion. Client worked with group to define resilience, sharing resilience to her means ?still standing after the storm.? Client stated, when faced with change, resilient people adapt, and those who resist change struggle or stay stuck. Client able to make connections between activity and barriers/supports to the development of a resilient lifestyle. 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 Client able to work with group to discuss benefits of resilience on mental health which included; better management of mental health symptoms, increased healthy coping skills, increased confidence, less fear of stressors, and personal growth. Client shared everyone deserves to be resilient because ?we have value.? Progress noted as shown by client?s increased engagement in group despite recent stressors. Recommended continued IOP tx to decrease depressive symptoms/ SI and to increase healthy coping skills. Narrative Note: []
--- NOTE | 2019-05-07 14:14 | BH.MDN_ITS ---
Multi-Disciplinary Note - Note 30-min Individual Time Started:: 11:30 Date: 05/07/19 Purpose of session/treatment goals addressed:: The purpose of this session was to address current symptoms, triggers, and stressors. Another goal was to provide emotional support and challenge guilt. Eye Contact:: Fair Motor Activity:: Restless Appearance:: Neat Speech:: Appropriate Mood:: Anxious, Depressed Affect:: Flat - tearful Thoughts:: Racing, No evidence of hallucinations/delusions noted Staff Interventions:: Therapist used active listening and open-ended questions to explore client's current stressors, symptoms, and triggers. Therapist provided emotional support and listened as client shared her struggles. Therapist gave client a handout on guilt and shame to help client increase understanding of the differences of justified versus unjustified guilt. Therapist gently challenged client?s negative thinking that was reinforcing self-hate. Therapist reviewed healthy coping skills. Client Response:: Client responded well to session, open to meeting with therapist. Client was tearful throughout session. Shared that her wants to follow through with the divorce. Client stated she feels guilty all the time and has a hard time challenging this guilt because I actually did those things even though client was not well and fully aware at the time. Client continues to use to self-deprecating talk and is unfairly blaming herself which further reinforces guilt and depression. Client able to recognize her unfair self-blame and was receptive to gentle challenging. Client acknowledge that she did not choose to have mental illness, chronic medical conditions, or medication induced symptoms. Client and therapist discussed ways client can advocate for herself and her girls. Client's mother continues to be a major support for client and reminds client that her guilt is unjustified. Client receptive to considering getting her daughters into therapy. Client willing to read the handout on challenging guilt and was receptive to encouragement from therapist. Risks/Concerns:: Client had a score of 4/5 for suicidal ideations today during check in, but she continues to deny any active suicidal ideations, plan, or intent as of 05/07/19. Continues to report ability to maintain safety. Protective factors include children and her mother. Progress Toward Goals/Plan:: Client's depressive symptoms have worsened this week due to client finding out that her now wants a divorce. Client endorses a depressed mood with anhedonia, suicidal ideations without intent, ne gative thinking, unjustified guilt, crying spells, racing thoughts, and difficulty concentrating. Client reports she will not harm herself but I can't see the light right now. Receptive to therapist's emotional support. Will continue IOP tx to prevent further decompensation, maintain safety, and reduce guilt. Time Stopped:: 12:00
--- NOTE | 2019-05-09 09:09 | BH.SGPN.GN ---
Behaviors/Verbalizations/Mental Status: []Pt alert and orient x3. Eye contact fair to good. Motor activity is appropriate. Appearance is casual. Speech is Appropriate, limited input provided. Mood is dysthymic, anxious. Affect is congruent. Thoughts are linear and logical. No evidence of psychosis. Reviewed daily check in sheet and no reports of suicidal ideations or intent. Client Response/Progress/Benefit: []Pt responded well to session AEB pt listening attentively to others and providing some feedback throughout. Pt reported current emotion as ?sad? and indicated this is due to continuing to struggle with accepting recent changes in her family dynamics and relationship with her . Expressed that she has been working to actively focus on the positives however and is beginning to make some progress in doing so. Pt did well to identify additional mental health wins. Indicating a mental health positive was being able to get here today despite desire to isolate. Shared her mother has been a major support in this area. Shared additional win as reaching out to a friend and getting coffe with her despite fears of being judged based on prior behaviors. Shared that this had gone well and she is glad to have reached out. Noted she continues to struggle with communicating with her which is an ongoing stressor. Progress noted in increased use of reframing and thought challenging. Pt recommended to continue IOP to increase healthy coping, improve healthy emotion regulation, and prevent decompensation. Narrative Note: []
--- NOTE | 2019-05-09 10:16 | BH.SGPN.GN ---
Behaviors/Verbalizations/Mental Status: []Client alert and oriented, casually dressed and groomed. Eye contact good. Motor activity appropriate. Speech within normal limits. Affect congruent, mood agitated, depressed. Thoughts linear, logical, no signs of hallucinations or delusions. Client Response/Progress/Benefit: []Pt active participant as shown by contribution to discussion and insight provided. Pt shared connecting to group topic of self-care. Expressed that lack of self-care is what resulted in her needing to come to IOP tx. Pt helped the group discuss benefits of self-care. Benefits included; improved relationships, maintaining stability, less stress, increased self-esteem, and improved mood. Pt participated in the discussion of the common myths about self-care including self-care is selfish, just pampering, too much effort and time, and is self-indulgent. Client participated in the discussion on debunking of these myths. Client seemed to benefit from increased awareness of the importance of self-care and challenging common myths that prevent practicing self-care. Discussed at times struggling to remind herself to prioritize self-care as she often makes other responsibilities a higher priority. Able to identify this ultimately leads to burnout and maintains depression. Client showing progress as shown by client?s report of continued application of skills and willingness to reach out to supports, continues to struggle with significant depression and anxiety. Will continue IOP tx to promote gains and to further decrease negative thinking, improve distress tolerance, as well as prevent decompensation. Narrative Note: []
--- NOTE | 2019-05-09 11:20 | BH.SGPN.GN ---
Behaviors/Verbalizations/Mental Status: []Client alert and oriented, casually dressed and groomed. Eye contact good. Motor activity appropriate. Speech within normal limits. Affect congruent, mood agitated, depressed. Thoughts linear, logical, no signs of hallucinations or delusions. Client Response/Progress/Benefit: []Client receptive of session, remaining an active participant. Pt actively listening and contributing input to discussion. Participated in group activity and connected that maintaining self-care requires balancing life stressors and making oneself a priority. Willing to complete worksheet activity and helped the group identify various types of self-care activities. Client completed self-assessment activity on the different areas of self-care and was able to identify current practices she uses and identify areas she can improve upon. Client reported she can improve emotional and social self-care area. Expressed struggling to reach out to supports and wanting to improve in this area. Client appeared to benefit from increasing awareness of how she can improve self-care balance. Progress noted as shown by client?s ability to connect with materials and continued efforts to challenge negative thoughts. Will continue IOP tx to promote mood stability, increase consistent use of coping skills, and improve overall functioning. Narrative Note: []
--- NOTE | 2019-05-12 09:05 | BH.SGPN.GN ---
Behaviors/Verbalizations/Mental Status: []Pt alert and orient x3. Eye contact good. Motor activity is appropriate. Appearance is casual. Speech is Appropriate. Mood is dysthymic, anxious, agitated. Affect is congruent. Thoughts are linear and logical. No evidence of psychosis. Reviewed daily check in sheet and no reports of suicidal ideations or intent. Client Response/Progress/Benefit: []Pt responded well to session AEB pt listening attentively to others and openly sharing thoughts and feelings. Pt reported current emotion as ?angry? and indicated this is due to a an incident in which she felt her [id number] had intentionally spent excess money on pt children to make her feel bad. Shared attempting to challenge these thoughts and reframe to view this as an opportunity for her children to spend quality time with their aunt. Pt did well to identify mental health wins. Indicating a mental health positive was being able to challenge her distorted thoughts more effectively. Pt identified additional positive as being able to go through bills with her without it turning into an argument. Pt stated she chose to use assertive communication rather than shut down. Noted this as progress. Pt appearing to benefit from ongoing support provided by group. Pt recommended to continue IOP to increase healthy coping, challenge distorted thoughts and prevent decompensation. Narrative Note: []
--- NOTE | 2019-05-12 11:20 | BH.SGPN.GN ---
Behaviors/Verbalizations/Mental Status: []Client alert and oriented, neatly dressed and groomed. Eye contact good. Motor activity appropriate. Speech within normal limits. Affect congruent, mood anxious. Thoughts linear, logical, no signs of hallucinations or delusions. Client Response/Progress/Benefit: []Client responded well to session, attentive and engaged throughout session. Group discussed the mental health benefits of recognizing strengths which included; improved self-esteem, better coping skills, and improved mood. Client stated recognizing strengths is an active process and that there are times when she has to revisit her strengths. Group shared that if one does not recognize their strengths, it could lead to increased mental health symptoms, isolation, and giving up on goals. Client able to identify personal strengths she possesses which included; bravery, assertiveness, patience, spirituality, empathy, and kindness. Client stated her strength of pedro has been helping client stay hopeful. Group discussed strategies to build and improve strengths which included; practicing self-compassion, affirmations, applying strengths or ?use them,? self-care, and keeping track of wins. Appeared to benefit from recognizing personal strengths and identifying strategies to improve strengths. Progress noted as shown by client's decreased SI today during check-in. Will continue IOP tx to prevent decompensation of depressive symptoms, reduce guilt, and improve self-worth. Narrative Note: []
--- NOTE | 2019-05-12 14:24 | BH.MDN ---
Multi-Disciplinary Note - Note 30-min Individual Time Started:: 08:00 Date: 05/12/19 Purpose of session/treatment goals addressed:: The purpose of this session was to address client's current symptoms, stressors, and worries. Another goal was to set up a family session with client's . Other topics included; psychoeducation and challenging guilt. Eye Contact:: Good Motor Activity:: Restless - but less restless than previous sessions Appearance:: Neat Speech:: Rapid Mood:: Anxious, Depressed Affect:: Congruent Thoughts:: Racing, No evidence of hallucinations/delusions noted Staff Interventions:: Therapist used active listening and open-ended questions to explore client's current stressors, symptoms, and worries. Therapist provided emotional support and helped client challenge unjustified guilt. Therapist provided psychoeducation on maintenance cycles and answered client's questions about family sessions. Therapist used strengths perspective to empower client and provide hope. Therapist obtained client's goals for family session. Client Response:: Client responded well to session, open to meeting with therapist. Client reported she met with her this weekend and he stated interest in coming into IOP for a family session. Client's still wants a divorce, but he appears more open to being a support for client. Client was tearful and shared she hopes that coming into session will help understand and have more empathy. Client identified her goals for family session which included; psychoeducation on medication-induced mood disorders and memory deficits, ability to advocate for herself and her feelings, and better communication. Client continues to present with negative thinking, excessive guilt, anhedonia, crying spells, and racing thoughts. Client stated all I've been doing is watching TV because it is the only thing that will shut my mind off. Client receptive to feedback from therapist and encouragement to practice healthy coping skills. Willing to watch a TedTalk on guilt and shame as well as completing a daily accomplishment log. Client's to come in for session on Sunday. Risks/Concerns:: Client denies any suicidal ideations, plan, or intent as of 05/12/19. Client had been suicidal last week and this therapist will continue to monitor client's SI. Protective factors include family and pedro. Client continues to report hopelessness and increased depressive symptoms. Progress Toward Goals/Plan:: Client's suicidal ideations have decreased since last week, but she continues to endorse severe depressive and anxiety symptoms. Client's mood has somewhat improved because client's is willing to come into IOP for a family session. Client endorses a depressed mood with anhedonia, negative thinking, unjustified guilt, crying spells, racing thoughts, and difficulty concentrating. Client's functioning continues to be impaired by her mental health and medical diagnoses. Still unable to live independently, work, and drive. Will continue IOP tx to prevent further decompensation, maintain safety, and improve mood stability. Time Stopped:: 08:30
--- NOTE | 2019-05-14 09:03 | BH.SGPN.GN ---
Behaviors/Verbalizations/Mental Status: []Pt eye contact good, casually dressed, motor activity appropriate, speech normal rate and tone, mood anxious, congruent affect, thoughts linear and intact, no evidence of delusions or hallucinations. Reviewed client?s symptom tracker, no signs of suicidal ideation, plan, or intent as of today. Client Response/Progress/Benefit: []Pt responded well to session as evidenced by pt openly sharing thoughts and feelings and listening attentively to peers. Pt identified mental health positive as getting to celebrate her twins birthday today by going to dinner with her and mom. Pt stated although she is excited about spending time with her daughters, but anxious to be around her because of everything that has transpired with their relationship recently. Pt reported she doesn't think her will say anything negative while at dinner since her mom will be there. Pt identified additional mental health positive as asking for help from a family friend. Pt stated asking for help has always been challenging for her, but she recognizes she needs to do it. Pt to continue IOP to continue use of healthy coping, challenge distorted thoughts and prevent decompensation. Narrative Note: []
--- NOTE | 2019-05-14 10:10 | BH.SGPN.GN ---
Behaviors/Verbalizations/Mental Status: []Client alert and oriented, casually dressed and groomed. Eye contact good. Motor activity appropriate. Speech within normal limits. Affect congruent, mood euthymic. Thoughts linear, logical, no signs of hallucinations or delusions. Client Response/Progress/Benefit: []Client an active participant during group AEB client contributing input to discussion, able to make connections throughout. Client agreed with group that it is important to have a variety of social supports. Shared that it can be hard to recognize available supports at times however. Client listened as group brainstorm potential consequences of not having a support system and barriers to developing social supports, which included: feeling like a burden, not using internal skills, procrastinating, minimizing sx, and poor communication. Group identified benefits of social support as increased confidence, having someone to talk to, reducing overall responsibilities, less stress, and improved relationships. Pt took on an active role during activity, providing support and instruction throughout. Appeared to benefit from gaining awareness of barriers that keep people from seeking social support as well as identifying the benefits of increasing support. Client progress noted in self-report of improved mood and reduced anxiety. Recommended continued IOP tx to prevent decompensation, continue to promote healthy skill application and thought challenging, and improve healthy social support outlets. Narrative Note: []
--- NOTE | 2019-05-14 11:10 | BH.SGPN.GN ---
Behaviors/Verbalizations/Mental Status: []Client alert and oriented, neatly dressed and groomed. Eye contact good. Motor activity appropriate. Speech within normal limits. Affect constricted, mood anxious. Thoughts linear, logical, no signs of hallucinations or delusions. Client Response/Progress/Benefit: []client active participant AEB client contributing to discussion and listened attentively to others. Client worked with the group to make connections between barriers faced in the challenge activity and strategies for managing these barriers with utilizing social supports in daily life. Client reported it helped her to be present during the activity. Client participated in small group discussion about the different types of support and benefits different types of support can provide. Client identified she would like to increase her spiritual and professional supports. Client shared this will help client feel more connect, hopeful, and provide client with the right medications. Client identified steps she can take to improve this support to be keeping regular appointments, attending jewish regularly, and taking her medications appropriately. Client seemed to benefit from identifying a type of support she would like to improve upon and identifying small steps to take. Progress noted as shown by client's report of reduced SI this week and her report of spending time with friends. Will continue IOP tx to prevent decompensation of depressive symptoms, reduce guilt and negative thoughts, and improve healthy coping skills. Narrative Note: []
--- NOTE | 2019-05-16 09:00 | BH.SGPN.GN ---
Behaviors/Verbalizations/Mental Status: [] Eye contact is good. Motor activity is appropriate. Appearance is casual. Speech is Appropriate. Mood is depressed. Affect is flat. Thoughts are linear and logical. No evidence of psychosis. Reviewed daily check in sheet and no reports of suicidal ideations or intent Client Response/Progress/Benefit: [] Pt was an active participant in group discussion. Tearful during her check-in. Provided appropriate feedback to peers. Daily symptom tracker notes 5/5 for anxiety, panic, and agitation and 4/5 for hopelessness. Shared with the group meeting with greenhouse transplanter and yesterday noting that it was very stressful and anxiety producing. Ultimately this led to an argument with her . Able to see some positives as she was assertive and not passive in certain situations. Recent stressors and anxiety have impacted sleep which has also impacted mood. Has a family session today which she is hopeful about. Limited progress. Benefited from group support, encouragement, and feedback. Will continue in IOP to maintain safety, prevent decompensation, and improve daily functioning. Narrative Note: []
--- NOTE | 2019-05-16 10:13 | BH.SGPN.GN ---
Behaviors/Verbalizations/Mental Status: []Client alert and oriented, casually dressed and groomed. Eye contact good. Motor activity appropriate. Speech within normal limits. Affect congruent, mood anxious, dysthymic. Thoughts linear, logical, no signs of hallucinations or delusions. Client Response/Progress/Benefit: []Client was an active participant AEB providing input throughout session and listening attentively to peers. The group discussed the quote and how the emotion anger is not good or bad, but one can respond to anger in healthy or harmful ways. Client worked with the group to define anger and its causes, as well as the internal and external impacts of anger. Group identified potential consequences of unhealthy management of anger to include: losing relationships, guilt, decreased self-esteem, lashing out, and worsening mental health symptoms. Client identified underlying factors of her anger which included: feeling overwhelmed, feeling invalidated r misunderstood, being out of control, and depression. Client stated isolating, arguing, getting an attitude with others, and silence as responses she has when feeling angry. Benefited from group by increasing awareness of the negative impacts of unmanaged anger and underlying factors that contribute to anger. Progress noted as client reports increased ability to identify small areas of progress and better communicate with supports. Will continue IOP tx to prevent decompensation, promote healthy change behaviors, and improve mood stability. Narrative Note: []
--- NOTE | 2019-05-16 11:15 | BH.SGPN.GN ---
Behaviors/Verbalizations/Mental Status: []Pt eye contact good, casually dressed, motor activity restless, speech normal rate and tone, mood depressed, constricted affect, thoughts linear and intact, no evidence of delusions or hallucinations. Client Response/Progress/Benefit: []Pt engaged participant throughout group AEB pt providing input throughout discussion. Pt chose to not participate in the activity because was unsure if she could manage her emotions effectively. Pt stated she tends to struggle with keeping things in perspective so will give more weight to a small issue. Pt worked with the group to identify the various barriers faced in the activity as well as skills used to successfully complete the task at hand without becoming dysregulated or uncontrollably angry. Group brainstormed with group healthy coping skills to help manage anger which included: mindfulness, crying, walking, exercise, talking to support and petting an animal. She appeared to benefit from brainstorming with the group potential strategies to manage anger in healthy ways. Pt identified plans to work on diving deeper when feeling angry to understand what is at the root of her anger. Recommended continued IOP to increase healthy coping, increase emotional regulation and prevent decompensation. Narrative Note: []
--- NOTE | 2019-05-16 14:39 | BH.MDN_ITS ---
Multi-Disciplinary Note - Note Family Time Started:: 12:15 Date: 05/16/19 Purpose of session/treatment goals addressed:: The purpose of this session was to engage client's in treatment by providing psychoeducation and communicating client's support needs. Other topics included fair fighting rules and client advocacy. Eye Contact:: Fair Motor Activity:: Restless - rubbing Appearance:: Casual Speech:: Rapid Mood:: Anxious, Dysthymic Affect:: Congruent - tearful throughout session Thoughts:: Racing, No evidence of hallucinations/delusions noted Staff Interventions:: Therapist used open-ended questions and active listening to gather information on expectations for the session. Therapist advocated for client by providing psychoeducation on depression, anxiety, and medication induced mood disorders. Therapist gave client?s two research articles on the impact of prednisone on mental health and memory. Therapist gently challenged misconceptions about mental health and advocated for client. Therapist reviewed effective communication, self-advocacy, and coping skills. Therapist gave the couple a worksheet on fair-fighting rules and discussed ways to better manage conflict. Therapist provided emotional support for client and her . Client Response:: Client entered session alert and oriented, willing to have an open discussion with her . Client's entered session somewhat withdrawn and was mostly quiet. Client able to verbalize her worries, frustrations, and current stressors. Client apologized for her past behaviors and advocated for herself. Client's reported he can't help how he feels and he is not able to forgive client for her past behaviors. Psychoeducation was provided by therapist on mood disorders secondary to steroid treatment. Despite the research provided, client's shared he continues to not accept that steroid treatment likely impacted client's moods and manic behaviors. Both willing to discuss ways to better support client and communicate more effectively. Provided a worksheet on fair-fighting rules and discussed ways to better manage conflict. Both came up with goals they can work towards to communicate more effectively. Client stated she has been guilty of stonewalling before which increased tension and frustration. Client plans to communicate that she will need a break to regulate her emotions before talking with her about difficult topics. Client's reported he will try and remind client to the day of about things they are doing as client is experiencing memory issues. Client was tearful throughout session, but she was able to be more assertive with her which was progress. Risks/Concerns:: Client denies any active suicidal ideations, plan, or intent as of 05/16/19. Protective factors include her daughter, living with her mother, and pedro. Progress Toward Goals/Plan:: Client's suicidal ideations have decreased since last week, but she continues to endorse severe depressive and anxiety symptoms. Client is showing progress in reducing isolation as she has spent time with friends recently. Client?s marital discord continues to be a major stressor for client and causes increased mental health symptoms. Client endorses a depressed mood with anhedonia, negative thinking, unjustified guilt, crying spells, racing thoughts, and difficulty concentrating. Client's functioning continues to be impaired by her mental health and medical diagnoses. Still unable to live independently, work, and drive. Will continue IOP tx to prevent further decompe nsation, maintain safety, and increase healthy coping skills. Time Stopped:: 14:00
== END 2019-05-17 23:59 ==
LOC: BHIOP 09:00
PROVIDERS: PCP Internal Medicine Infectious Disease; Referring Provider Psychiatry & Neurology Psychiatry; Visit Provider Psychiatry & Neurology Psychiatry
DX: F33.2 Major depressive disorder, recurrent severe without psychotic features (principal); F41.1 Generalized anxiety disorder; Z72.89 Other problems related to lifestyle; M30.0 Polyarteritis nodosa; G89.29 Other chronic pain; G47.33 Obstructive sleep apnea (adult) (pediatric); E66.9 Obesity, unspecified; Z79.899 Other long term (current) drug therapy
CPT/HCPCS: H0035; 90832; 90834; 90837; 90847; 90853

== ENCOUNTER 2019-09-15 11:45 | Day surgery (SDC) | payer OTHER, SELFPAY ==
--- NOTE | 2019-09-04 02:48 | HP_ITS ---
Intake Vital Signs 09/04/19 BMI 42.8 09/04/19 Height 5 ft 3 in 09/04/19 Weight: 240 lb 09/04/19 BMI 42.5 09/04/19 BP 116/69 09/04/19 Blood Pressure Location Lt brachial 09/04/19 Position Sitting 09/04/19 Respiration 18 09/04/19 Pulse 80 09/04/19 Pulse Source Monitor 09/04/19 Temp 97.4 F L 09/04/19 Temp Source Temporal 09/04/19 Pulse Oximetry (%) 94 09/04/19 Oxygen Delivery Method room air Intake Visit Reasons: Discuss PORT PLACEMENT Chief Complaint: Daytime fatigue [employer] Required: No Is patient in pain?: No Allergies amoxicillin Allergy (Mild, Verified 09/04/19 14:04) Unknown mycophenolate mofetil [From CellCept] Allergy (Verified 09/04/19 14:04) red, burning, HTN Sulfa (Sulfonamide Antibiotics) Allergy (Verified 09/04/19 14:04) hives, swelling Medications potassium chloride 20 mEq tablet,extended release 20 meq PO BID 05/24/17 [History Confirmed 09/04/19] lisinopril 10 mg tablet 10 mg PO BID 10/02/17 [History Confirmed 09/04/19] albuterol sulfate 90 mcg/actuation aerosol inhaler 2 puff INHALATION Q6H PRN #18 g 12/24/17 [Rx Confirmed 09/04/19] fluticasone furoate 100 mcg-vilanterol 25 mcg/dose inhalation powder 1 inh INHALATION Q24H #60 ea 06/19/18 [Rx Confirmed 09/04/19] famotidine 40 mg tablet 20 mg PO BID 04/02/19 [History Confirmed 09/04/19] Doxepin HCl 50 mg PO DAILY 04/30/19 [History Confirmed 09/04/19] Furosemide 40 mg PO BID 04/30/19 [History Confirmed 09/04/19] Leflunomide 20 mg PO DAILY 04/30/19 [History Confirmed 09/04/19] Methadone HCl 5 mg PO BID 04/30/19 [History Confirmed 09/04/19] Methylprednisolone 4 mg PO DAILY 04/30/19 [History Confirmed 09/04/19] Metoprolol(XL)Succ [Toprol Xl (Beta Kanwal)] 50 mg PO DAILY 04/30/19 [History Confirmed 09/04/19] dapsone 25 mg tablet 75 mg PO ONCE tab 09/04/19 [History Confirmed 09/04/19] venlafaxine 100 mg tablet 100 mg PO BID tab 09/04/19 [History Confirmed 09/04/19] [facility] Medical History Edema extremities (Acute) Dyspnea on exertion (Acute) Elevated liver enzymes (Chronic) BELLA (obstructive sleep apnea) (Chronic) Moderate persistent asthma (Chronic) Macromastia (Chronic) Chronic neck pain (Chronic) Chronic thoracic back pain (Chronic) Shoulder pain (Chronic) Intertrigo (Chronic) Family history of breast cancer (Chronic) Abdominal panniculus (Chronic) Morbid obesity with BMI of 40.0-44.9, adult (Chronic) Hepatomegaly (Chronic) Hypertension (Chronic) Polyarteritis nodosa (Chronic ~2008) Pulmonary hypertension (Chronic) Alcohol use disorder, mild, in sustained remission (Acute) Asthma (Acute) Back problem (Acute) Generalized anxiety disorder (Acute) Heart murmur (Acute) High cholesterol (Acute) MDD (major depressive disorder), recurrent severe, without psychosis (Acute) Seasonal allergies (Acute) Staph infection (Acute) Vitamin deficiency (Acute) Gastritis (Chronic) Hypokalemia (Chronic) Insomnia (Chronic) Plantar fasciitis (Chronic) Surgical History H/O right knee surgery (Resolved) History of appendectomy (Resolved) History of bilateral tubal ligation (Resolved) History of endometrial ablation (Resolved) L Lower leg surgery (Resolved) balloon sinuplasty (Resolved) Family History Father Sudden cardiac CAD (coronary artery disease) from [place] age 59 Other Asthma Heart disease High cholesterol History of hormone disturbance Hypertension Myocardial infarction Severe allergy Social History (Updated 09/04/19 @ 14:[address] Klever Bae MD) household members: spouse housing: house current occupational status: employed current occupation: [employer] pets and animals: Yes pets and animals: dog(s), farm animals Smoking Status: Never smoker second hand exposure: No alcohol intake: current alcohol intake frequency: holidays/special occasions only Alcohol type: wine substance use type: does not use additional social history: DOES USE ASPIRIN DOES USE IBUPROFEN HPI HPI HPI: DAGOBERTO KOENIG, is a 49 F who presents to the office today for HPI HPI Surgical H&P: Yes HPI: DAGOBERTO KOENIG, is a 49 F who presents to the office today for port placement. The patient was seen in the past but at that time she was still on anticoagulation for DVT. She is now done with anticoagulation and would like a port placed. The patient has ongoing transfusions every 6 weeks. She has poor vascular access and has difficulty obtaining IV access. ROS General General: Yes fatigue; no weight change Musc Musculoskeletal: Yes back problems Cardio Cardiovascular: Yes murmur and high blood pressure; no pacemaker, heart disease, atrial fibrillation, heart attack, heart stent, palpitations, shortness of breat with exertion or chest pain Psych Psychiatric: Yes depression and anxiety Resp Respiratory: Yes shortness of breath, Yes sleep apnea, No cough, No COPD, Yes asthma, No emphysema, No wheezing Gastro Gastrointestinal: No abdominal pain, No nausea or vomiting, No diarrhea, No constipation, No blood in stool, No acid reflux, No hemorrhoids, No ulcers, No gallbladder problem, No black,tarry stools Donnell Hematologic: Yes blood thinners, Yes blood clots Exam Const General: cooperative Orientation: alert, oriented x3 Resp Effort & Inspection: normal respiratory effort Auscultation: clear to auscultation bilaterally Cardio Rate: regular rate Rhythm: regular rhythm Heart Sounds: murmur GI Inspection: non-distended Palpation: soft, nontender Assessment & Plan Problems 1. Encounter for adjustment and management of vascular access device Z45.2 Plan Patient is doing well and she is done with her treatment for her DVT. She is no longer on blood thinners. She would like a vascular access port placed. I discussed port placement with the patient in detail. I discussed the risks including but not limited to bleeding, infection, DVT, pneumothorax. The patient understands the risks and would like Port-A-Cath placement. We discussed the current risks associated with COVID-19. While it is understood that there is a community spread of COVID-19, the risk of dalia COVID-19 while at [facility] ([facility]) is very low; however, the risk cannot be completely mitigated because of the community spread of the disease. We discussed in detail the risk of exposure to and/or potential harm posed by the COVID-19 virus with having a surgery/procedure at this time versus the risk of delaying the surgery/procedure. It is not possible to know either the risk of delaying the surgery or procedure or chance of getting an infection with perfect accuracy, but a joint decision was made to proceed at this time with the scheduled surgery/procedure as indicated on the consent form. Patient was notified that we will need to comply with any screening or testing [facility] wishes to perform or that surgery may be delayed for any positive results. Klever Bae MD Pager: [facility] [address] [place] [address], [address] [place] [address] Office: Coding Level of Care Code Off vis,est,level 3 Diagnoses Encounter for adjustment and management of vascular access device Z45.2 09/04/19 1449 <Electronically signed by Klever calles MD> Date _ Klever Bae MD I have re-examined the patient. There are no clinical changes since date of exam.
[2019-09-04 14:10] VITALS: BMI 42.8
[2019-09-10 09:58] VITALS: BMI 42.8
[2019-09-15 12:06] VITALS: BP 125/56; PULSE 108; RESP 18; TEMP 36.7; O2SAT 98; BMI 42.0
[2019-09-15] MEDS: Lactated Ringers 1,000 ML 100 ML IV (12:25)
[2019-09-15] MEDS: Bupiv/Epi 0.5% Mpf 30 ML Vial (14:20)
--- NOTE | 2019-09-15 14:36 | PCM.OPRPT ---
Problem List (1) Encounter for adjustment and management of vascular access device Status: Acute Report of Operation Date of Procedure: 09/15/19 Pre-Operative Diagnosis: Need for vascular access port Post-Operative Diagnosis: Same Surgery/Procedure Performed:: Ultrasound and fluoroscopy guided right chest port placement utilizing right IJ Description of Procedure: After obtaining informed consent patient was brought back to the operating room MAC anesthesia was induced and the right chest and neck were prepped in normal sterile fashion. Ultrasound was used to evaluate both IJs and the right IJ was selected. Next, using a needle, the right IJ was accessed and a guidewire was passed on into the superior vena cava under fluoroscopy guidance. A small incision was made over the puncture site and the dilator introducer was placed over the guidewire. Next this was capped and the pocket was made for the port. 1% lidocaine with epinephrine was injected in the proposed port site. An incision was made with scalpel. Electrocautery was used to make a pocket under the skin and subcutaneous tissue. Hemostasis was obtained. Next, the catheter was tunneled up to the neck incision site and placed through the introducer. The peel-away introducer was removed and the position of the catheter was confirmed on fluoroscopy. Next, the catheter was trimmed and attached to the port with the locking device. Interrupted 2-0 Vicryl sutures were used to anchor the port to the chest wall and then the port was placed inside the pocket. The pocket was then flushed with saline and the port irrigated with saline. There was good blood return and the port flushed easily. Next, heparin was injected into the port. The skin was closed with subcutaneous interrupted 3-0 Vicryl sutures. A single 3-0 Vicryl sutures placed under the skin at the neck incision site. Steri-Strips were placed as well as op sites. Patient tolerated procedure well, was taken to PACU in stable condition. Chest x-ray will be obtained. Grafts/Implants Used: 8 [employer] - Admit VTE Documentation VTE Mechan Device Prophylaxis: SCD's
--- NOTE | 2019-09-15 14:37 | DCINST_ITS ---
Discharge Diet: No Restrictions - Pain medication may cause nausea. You should typically eat light foods as you take your pain medication. Discharge Activity: Return to Normal Activity, May Shower - with your bandage in place in 1-2 days after surgery. DO NOT SHOWER WHEN YOUR PORT IS ACCESSED. Call your doctor if your incision/area has: Continuous Slow Oozing, Sudden Increased Bleeding, Increased Pain/ Swelling, Increased Redness Call your doctor if you observe: Fever of 101 or Higher Remove Dressing in (days):: 3 - When you remove the bandage, leave the steri- strips intact until they fall off. Allergies/Adverse Reactions: Allergies amoxicillin Allergy (Mild, Verified 09/15/19 12:04) Unknown mycophenolate mofetil [From CellCept] Allergy (Verified 09/15/19 12:04) red, burning, HTN Sulfa (Sulfonamide Antibiotics) Allergy (Verified 09/15/19 12:04) hives, swelling Medications to take at Discharge potassium chloride 20 mEq tablet,extended release 20 meq PO BID 05/24/17 lisinopril 10 mg tablet 10 mg PO BID 10/02/17 albuterol sulfate 90 mcg/actuation aerosol inhaler 2 puff INHALATION Q6H PRN #18 g 12/24/17 famotidine 40 mg tablet 20 mg PO BID 04/02/19 Doxepin HCl 50 mg PO QHS 04/30/19 Furosemide 40 mg PO BID 04/30/19 Leflunomide 20 mg PO QHS 04/30/19 Methadone HCl 5 mg PO BID 04/30/19 Methylprednisolone 4 mg PO DAILY 04/30/19 Metoprolol(XL)Succ [Toprol Xl (Beta Kanwal)] 50 mg PO QHS 04/30/19 dapsone 25 mg tablet 75 mg PO DAILY tab 09/04/19 venlafaxine 100 mg tablet 100 mg PO BID tab 09/04/19 Calcium Carbonate [Calcium] 600 mg PO DAILY 09/08/19 Cholecalciferol (Vitamin D3) [Vitamin D3] 5,000 unit PO DAILY 09/08/19 Fluticasone/Vilanterol [Breo Ellipta] 1 inh INHALATION DAILY 09/08/19 Primary Care Physician: Mustapha Gonzales MD [Primary Care Provider] - Test Results: Test results from this visit will be discussed in further detail at your follow- up appointment, if applicable. Please Follow Up With: Klever Bae MD When: Please call to schedule 2 week follow up appointment. [phone]
[2019-09-15 14:42] VITALS: BP 121/69; BP 125/56; PULSE 98; RESP 16; TEMP 36.4; O2SAT 96
--- NOTE | 2019-09-15 14:45 | RAD_ITS ---
STUDY: X-RAY CHEST REASON FOR EXAM: Female, 49 years old. Post op port placement TECHNIQUE: Single AP portable view of the chest. COMPARISON: Comparison is made with prior study dated July 27, 2010. FINDINGS: A right-sided portacatheter has been placed with the tip in the proximal portion of the superior vena cava. The lungs are clear and expanded. There is no demonstrated pleural abnormality. Normal size heart. Normal mediastinum and renay. Normal visualized pulmonary arteries. Normal visualized aortic arch and descending thoracic aorta. Normal visualized thoracic spine. Normal visualized ribs, clavicles, and shoulders. There is no demonstrated abnormality of the visualized soft tissue structures of the upper abdomen. RAD/CXR for Line Placement IMPRESSION: The tip of the right portacatheter is in the proximal portion of the superior vena cava. Electronically Signed: Ji Abel, at 15:29 EDT , Service support ,
[2019-09-15 14:46] VITALS: BP 115/66; BP 125/56; PULSE 97; RESP 16; O2SAT 93
[2019-09-15 14:54] VITALS: BP 115/66; BP 125/56; PULSE 100; RESP 16; O2SAT 94
[2019-09-15 14:55] VITALS: BP 107/71; BP 125/56; PULSE 102; RESP 16; TEMP 36.4; O2SAT 94
[2019-09-15 15:50] VITALS: BP 105/80; BP 125/56; PULSE 97; RESP 18; TEMP 35.8; O2SAT 94
== END 2019-09-15 16:02 | disposition home or self-care (01) ==
LOC: SDC 11:49 → AC 11:50
PROVIDERS: Anesthesiology; PCP Internal Medicine Infectious Disease; Referring Provider Surgery; Visit Provider Surgery
PROC: (CPT 36561; principal; 2019-09-15 13:15)
DX: Z45.2 Encounter for adjustment and management of vascular access device (principal); Z11.59 Encounter for screening for other viral diseases; I10 Essential (primary) hypertension; G47.33 Obstructive sleep apnea (adult) (pediatric); J45.40 Moderate persistent asthma, uncomplicated; E66.01 Morbid (severe) obesity due to excess calories; Z68.41 Body mass index [BMI] 40.0-44.9, adult; I27.20 Pulmonary hypertension, unspecified; E78.00 Pure hypercholesterolemia, unspecified; K21.9 Gastro-esophageal reflux disease without esophagitis; K76.0 Fatty (change of) liver, not elsewhere classified; F32.9 Major depressive disorder, single episode, unspecified; F41.9 Anxiety disorder, unspecified; Z78.0 Asymptomatic menopausal state; Z87.19 Personal history of other diseases of the digestive system; Z86.718 Personal history of other venous thrombosis and embolism; Z79.899 Other long term (current) drug therapy
CPT/HCPCS: 00532; 36561; 71045; 77001; 87635; G2023; J7120; C1788; U0003

== ENCOUNTER 2020-03-15 13:31 | Observation (INO) | payer OTHER, SELFPAY ==
--- NOTE | 2020-03-10 09:26 | EKG12_ITS ---
Test Reason : PREOP Blood Pressure : / mmHG Vent. Rate : 069 BPM Atrial Rate : 069 BPM P-R Int : 166 ms QRS Dur : 086 ms QT Int : 434 ms P-R-T Axes : 027 063 030 degrees QTc Int : 465 ms Normal sinus rhythm Normal ECG Confirmed by ANTONIETA NORMAN, SHERMAN ([id number]), film and video editor SERGEI SALAS ([id number]) on 03/11/2020 8:46:28 AM Referred By: You Montero Confirmed By:SHERMAN FUNG MD
[2020-03-10 10:21] LABS: Hematocrit 35.9 % (37-47); Hemoglobin 11.4 g/dL (12.0-15.0); Mean Corp Hgb Conc 31.8 g/dL (32-36); Mean Corpuscular Hgb 32.4 pg (27.0-32.0); Mean Platelet Vol. 10.4 fl (6.2-12.0); Platelet Count 240 K/mm3 (150-450); RBC Distribution Width CV 13.4 % (11.6-14.6); RBC Distribution Width SD 49.6 fl (35.1-43.9); Red Blood Count 3.52 M/mm3 (4.2-5.4); White Blood Count 6.6 K/mm3 (4.4-11.0)
[2020-03-10 10:43] LABS: Anion Gap 6 (5-15); BUN 12 mg/dL (7-18); BUN/Creat Ratio 13.1 RATIO (10-20); Calcium,Total 8.7 mg/dL (8.5-10.1); Chloride 107 mmol/L (98-107); Creatinine, Serum 0.92 mg/dL (0.55-1.02); EST Glomerular Filtration Rate 69 mL/min (>60); Est Glom Filt Rate - Afr Amer 83 mL/min (>60); Glucose 99 mg/dL (74-106); Potassium 3.7 mmol/L (3.5-5.1); Sodium Level 143 mmol/L (136-145)
--- NOTE | 2020-03-14 23:27 | HP.PCM_ITS ---
History and Physical Date of Admission: 03/15/20 HISTORY OF PRESENT ILLNESS 50 year old woman presents with complaints of bilateral macromastia as well as associated painful symptomatology of neck pain, thoracic back pain, bilateral shoulder pain from shoulder grooving from the weight of her breasts on her bra straps, and inframammary intertrigo for which she uses powders for relief. She denies any trauma to her breasts. Denies any nipple discharge. She sees a Chiropractor without much relief in her back pain. She has a family history of breast cancer. She has polyarteritis nodosa and was on Medrol and Renflexin infusion every 6 weeks. Since starting the medication, her weight has increased almost 100 lbs from 139 to 235 lbs. Before starting Medrol, her bra size was a C cup. After starting Medrol, her breast size increased to 44 G. Her last mammogram was done 10/09/19. It showed heterogeneously dense breasts and no significant suspicious finding. Since her last visit in 09/05, she has weaned off the Medrol. She has continued the Renflexin. Dapsone and Leflunomide were added. Since stopping the Medrol, her weight has stabilized. We have received medical approval for the breast reduction. It is scheduled for 03/15/20. 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 She presents for a preop visit to answer last minute questions and to sign the office consent. PAST MEDICAL HISTORY Edema extremities Dyspnea on exertion Elevated liver enzymes BELLA (obstructive sleep apnea) Macromastia Chronic neck pain Chronic thoracic back pain Shoulder pain Intertrigo Family history of breast cancer Abdominal panniculus Morbid obesity with BMI of 40.0-44.9, adult Hepatomegaly Hypertension Polyarteritis nodosa Pulmonary hypertension Alcohol use disorder, mild, in sustained remission Asthma Back problem Generalized anxiety disorder Heart murmur High cholesterol MDD (major depressive disorder), recurrent severe, without psychosis Staph infection Vitamin deficiency Gastritis Hypokalemia Insomnia Plantar fasciitis PAST SURGICAL HISTORY port placement (Acute ~09/15/19) right knee surgery appendectomy bilateral tubal ligation endometrial ablation L Lower leg surgery balloon sinuplasty ALLERGIES amoxicillin mycophenolate mofetil [From CellCept] Sulfa (Sulfonamide Antibiotics) MEDICATIONS potassium chloride lisinopril albuterol sulfate/actuation aerosol inhaler famotidine Doxepin HCl Furosemide Leflunomide Methadone Metoprolol(XL)Succ [Toprol Xl (Beta Kanwal)] dapsone venlafaxine Calcium Carbonate [Calcium] Cholecalciferol (Vitamin D3) [Vitamin D3] Fluticasone/Vilanterol [Breo Ellipta] Renflexin FAMILY HISTORY Father - Sudden cardiac , CAD (coronary artery disease) Other - Asthma, Heart disease, High cholesterol, History of hormone disturbance, Hypertension, Myocardial infarction, Severe allergy SOCIAL HISTORY Smoking Status: Never smoker second hand exposure: No alcohol intake: current alcohol intake frequency: holidays/special occasions only Alcohol type: wine substance use type: does not use REVIEW OF SYSTEMS General - Denies fever and weight loss. Has fatigue. Eyes - Denies cataracts and glaucoma. ENT - Denies nasal congestion and sore throat. Endocrine - Denies excessive thirst and urination. Has heat and cold intolerance. Skin - Denies suspicious lesions and skin cancer. Has inframammary intertrigo for which she uses powders for relief. Musculoskeletal - Denies joint pain, joint stiffness, and arthritis. Has weakness of muscles and joints. Has neck pain and back pain. Her neck and back pain involve cervical and thoracic area. Has bilateral shoulder pain from shoulder grooving from the weight of her breasts on her bra straps. Neuro - Denies headaches. Cardiovascular - Denies chest pain, fatigue, and shortness of breath with exertion. Psych - Denies anxiety. Has depression. Respiratory - Denies shortness of breath and chronic cough. Has sleep apnea and asthma. Gastrointestinal - Denies nausea, vomiting, diarrhea. Denies constipation. Hematologic - Denies abnormal bruising and bleeding. Genitourinary - Denies hematuria. Has urinary frequency. PHYSICAL EXAMINATION General - Alert and oriented. Patient's bra size is 44 G. Before starting Medrol, it was a C cup. HEENT - PERRL. EOMI. Throat is clear. Neck - Supple. No bony tenderness. There is some pericervical soft tissue tenderness. Lungs- Clear to auscultation. Heart - Regular rate and rhythm. Breasts - Patient has bilateral macromastia. No breast masses palpable. No axillary adenopathy noted. Distance from midclavicular line on the left to the nipple is 38 cm and from the nipple to the inframammary fold is 14 cm. Distance from midclavicular line on the right to the nipple is 38 cm and from nipple to the inframammary fold is 14 cm. Nipple areolar complex diameter is 6 cm bilaterally. No active inframammary intertrigo noted at this time. The right chest wall port is located at the superior aspect of the breast. Abdomen - Soft and non distended. Has an abdominal panniculus with a RLQ scar from an appendectomy. Back - No bony tenderness noted. There is perivertebral soft tissue tenderness in the upper thoracic area. Extremities - FROM. No axillary adenopathy. Radial pulses are palpable. There is some bilateral shoulder tenderness with shoulder grooving from the weight of her breasts on her bra straps. Neuro - CN II-XII grossly intact. Psych - Normal and mood and affect. ASSESSMENT 1. Bilateral macromastia. 2. Neck pain. 3. Thoracic back pain. 4. Bilateral shoulder pain from shoulder grooving from the weight of the breasts on her bra straps. 5. Inframammary intertrigo. 6. Family history of breast cancer. 7. Polyarteritis nodosa. 8. Abdominal panniculus. PLAN Discussed with the patient the procedure of breast reduction mammoplasty. I feel this procedure would be beneficial in this patient as it would help relieve her painful symptomatology. Her last mammogram was on 10/09/19. It showed heterogeneously dense breasts and no significant suspicious finding. Postoperatively, she would get a breast reduction baseline mammogram at some point. I would remove approximately 700 g of breast tissue per side. We will send the tissue to pathology for analysis to rule out carcinoma. Discussed with patient the extent of scarring for this procedure. The biggest risk for wound healing problems is the T-zone area. Usually wound care and sometimes antibiotics are necessary for healing in this area. She would have drains in for a few days depending on the amount of tissue that is removed. She will be on antibiotics until the drains are removed. Also discussed with the patient that she is on high risk medications for wound healing problems such as Renflexin and Dapsone and Leflunomide. She recently weaned off Medrol. She voices understanding that her postoperative course may be ngoc. If wound problems develop, I would recommend operative debridement and skin grafting earlier in the postoperative course. In general, the final breast size ranges from a high B to a low C cup. In this patient it will be more in the range of a full B cup. Patient voices understanding. Surgery will be done under general anesthesia with a surgical observation overnight stay in the hospital. Her symptoms have improved and she is medically stable while on the Renflexin and Dapsone and Leuflutamide. Patient was informed of the risks and complications of the procedure including alternatives to surgery. These were discussed with her personally. She voices understanding and wishes to proceed. We have received medical approval for the surgery and is scheduled for 03/15/20. She had preop questions that were answered personally and to her satisfaction. Her office consent was signed. Some of the risks and complications were included in a form from the [employer]. She also had questions about her abdominal panniculus. Depending on how well she heals from her breast reduction surgery, she may want to discuss an abdominal panniculectomy procedure in the future. We discussed the current risks associated with COVID-19. While it is understood that there is a community spread of COVID-19, the risk of dalia COVID-19 while at [facility] ([facility]) is very low; however, the risk cannot be completely mitigated because of the community spread of the disease. We discussed in detail the risk of exposure to and/or potential harm posed by the COVID-19 virus with having a surgery/procedure at this time versus the risk of delaying the surgery/procedure. It is not possible to know either the risk of delaying the surgery or procedure or chance of getting an infection with perfect accuracy, but a joint decision was made to proceed at this time with the scheduled surgery/procedure as indicated on the consent form. Patient was notified that we will need to comply with any screening or testing [facility] wishes to perform or that surgery may be delayed for any positive results. Discussed with the patient that I was tested for COVID-19 on 09/18/19 which was negative and on 10/02/19 which was negative and on 10/16/19 which was negative and on 10/30/19 which was negative and on 11/13/19 which was negative and on 12/04/19 which was negative and on 12/25/19 which was negative and on 01/29/20 which was negative and on 02/19/20 which was negative and on 03/09/20 which was negative. My testing regimen at this time is to be COVID-19 tested every 2 weeks or so. Procedure Criteria Procedure Type: Elective COVID Risk Discussion: The surgeon/proceduralist and patient have discussed in detail the risk of exposure to and/or potential harm posed by the COVID-19 virus with having a surgery/procedure at this time versus the risk of delaying the surgery/procedure. It is not possible to know either the risk of delaying the surgery or procedure or chance of getting an infection with perfect accuracy, but a joint decision was made between the patient and the surgeon/proceduralist to proceed at this time with the scheduled surgery/procedure as indicated on the consent form.
[2020-03-15] VITALS (17 sets, daily range): BP systolic 85–113; BP diastolic 46–95; PULSE 60–88; RESP 16–20; TEMP 36.3–36.9; O2SAT 91–99; BMI 41.8
[2020-03-15] MEDS: Lactated Ringers 1,000 ML 60 ML IV (05:50)
[2020-03-15 06:18] LABS: Magnesium 2.2 mg/dL (1.6-2.6)
[2020-03-15] MEDS: Lactated Ringers 1,000 ML 40 ML IV (06:27)
[2020-03-15] MEDS: Acetaminophen 500 MG Tablet 1000 MG PO ×2 (06:28→17:44)
[2020-03-15] MEDS: Gabapentin 600 MG Tablet PO (06:28)
[2020-03-15] MEDS: Scopolamine 1mg/72hr Patch 1 PATCH TD (06:29)
[2020-03-15 06:41] LABS: Bedside Glucose 83 mg/dL (70-110)
[2020-03-15] MEDS: Ipratropium/Albuterol Sulfate 3 ML AMPUL.NEB INHALATION (06:50)
--- NOTE | 2020-03-15 07:30 | BR_PTH ---
PATIENT: DAGOBERTO KOENIG LOC: MS3 U#:[id number] AGE/SX: 50/F ROOM: MS318 RE03/15/[address]: Dr. You Montero MD : 1970 BED: 1 DIS: 03/16/2020 SPEC #: [id number] RECD: 03/15/20 13:04 STATUS: QASIM CAITLYN #: [id number] WILLIAM: 03/15/20 07:[address]: You Montero DEPT: SURGICAL PATHOLOGY RECD BY: Maria Guadalupe Stafford ENTERED: 03/15/20 13:29 SP TYPE: MAMOPLASTY OTHR DR: Dr. Mustapha Gonzales MD Tissues: A - Right breast, NOS B - Left breast, NOS Procedures: Surgery Specimen Level IV HEADER OPERATION: Breast reduction PRE-OP DIAGNOSIS: Bilateral macromastia; neck and thoracic back pain; bilateral shoulder pain; inframammary intertrigo TISSUE SUBMITTED: A - Right breast tissue, B - Left breast tissue MICROSCOPIC DIAGNOSIS A. Right breast, reduction mammoplasty: Fibrocystic change. Skin with no pathologic change. B. Left breast, reduction mammoplasty: Fibrocystic change. Skin with no pathologic change. Focal intraductal hyperplasia without atypia. Rare Banal microcalcifications. AM:tamela 03/17/20 MICROSCOPIC DESCRIPTION Slides are reviewed. GROSS DESCRIPTION A - Received in fixative is one container labeled with the patient's name and designated right breast tissue. The specimen consists of multiple irregular fragments of glasgow-yellow fibrofatty tissue ranging in size from 2 to 21 cm. Fragments of unremarkable skin are adherent to the larger fragments of fibrofatty tissue. Serial sections do not reveal mass lesions. No cutaneous lesions are identified. The specimen weighs 1042 gm. [employer] sections are submitted in five cassettes. B - Received in fixative is one container labeled with the patient's name and designated left breast tissue. The specimen consists of multiple irregular fragments of glasgow-yellow fibrofatty tissue ranging in size from 3 to 17 cm. Fragments of unremarkable skin are adherent to the larger fragments of fibrofatty tissue. Serial sections do not reveal mass lesions. No cutaneous lesions are identified. The specimen weighs 980 gm. [employer] sections are submitted in five cassettes. / AM:tamela 03/16/20 TC:5 CPT: 98980 x2
[2020-03-15] MEDS: Lidocaine 1%/Epi 1:200 (30ml) 30 ML AMPUL (08:07)
--- NOTE | 2020-03-15 13:19 | PCM.OPRPT ---
Report of Operation Date of Procedure: 03/15/20 Pre-Operative Diagnosis: 1. Bilateral macromastia. 2. Neck pain. 3. Thoracic back pain. 4. Bilateral shoulder pain from shoulder grooving from the weight of the breasts on her bra straps. 5. Inframammary intertrigo. 6. Family history of breast cancer. 7. Polyarteritis nodosa. Post-Operative Diagnosis: Same. Surgery/Procedure Performed:: Bilateral breast reduction mammaplasty. Description of Surgical Findings:: 50 year old woman presents with complaints of bilateral macromastia as well as associated painful symptomatology of neck pain, thoracic back pain, bilateral shoulder pain from shoulder grooving from the weight of her breasts on her bra straps, and inframammary intertrigo for which she uses powders for relief. She denies any trauma to her breasts. Denies any nipple discharge. She sees a Chiropractor without much relief in her back pain. She has a family history of breast cancer. She has polyarteritis nodosa and was on Medrol and Renflexin infusion every 6 weeks. Since starting the medication, her weight has increased almost 100 lbs from 139 to 235 lbs. Before starting Medrol, her bra size was a C cup. After starting Medrol, her breast size increased to 44 G. Her last mammogram was done 10/09/19. It showed heterogeneously dense breasts and no significant suspicious finding. Since her last visit in 09/05, she has weaned off the Medrol. She has continued the Renflexin. Dapsone and Leflunomide were added. Since stopping the Medrol, her weight has stabilized. We have received medical approval for the breast reduction. It is scheduled for 03/15/20. 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 Patient was informed of the risks and complications of the procedure including alternatives to surgery. These were discussed with the patient personally. Patient voices understanding and wishes to proceed. Some of the risks and complications were included in a form from the [employer]. IV Fluids - 2000 ml. Urine Output - 750 ml. Tissue removed from the left breast - 1014 grams. Tissue removed from the right breast - 958 grams. I used AmnioFill Placental Connective Tissue Powder, 1000 mg in each breast. Catalog Number - AF-1000. Lot Number - [id number]. Expiration - October 17, 2024, (on the left). Catalog Number - AF-1000. Lot Number - [id number]. Expiration - August 17, 2024, (on the right). I used Demetrius absorbable hemostat, (I used 4 vials, 2 in each breast). Reference Number - [id number]. Lot Number - [id number]. Expiration - September 13, 2024. Type of Anesthesia:: General Specimen's removed: 1. Left breast tissue to Pathology. 2. Right breast tissue to Pathology. Drains: Jose Miguel x2 (one in each breast). Estimated Blood Loss (mL): 250 ml. Fluids Replaced: 2750 ml (IV Fluids 2000 ml, Urine Output 750 ml). Description of Procedure: In the preop area, the patient was placed in the sitting position and preoperative markings were made. The sternum midline was marked down to the umbilicus. The inframammary folds were marked bilaterally. The midclavicular line was then marked down to the nipple, then from the nipple to the inframammary fold. The inframammary fold was then superimposed on the midclavicular line and I made a point 1 cm below that to be the new position of the nipple-areolar complex. 7 cm lines were then drawn divergent from that point to encompass the nipple-areolar complex. The distance between the divergent lines was 9 cm. The patient was then placed in the supine position and taken to the operating room and placed under general anesthesia and her breasts were prepped and draped in usual fashion. Ioban draping was also used. SCDs were placed for DVT prophylaxis. Perioperative antibiotics were given intravenously. A Santiago catheter was also placed. For the surgery I wore an N95 mask and wore proper eye protection. I then marcie straight lines down from the lines drawn divergent around the nipple-areolar complex down to the inframammary fold. The width of the pedicle is 9 cm. I then used a 42 mm circular template for a new size of the nipple-areolar complex. The central markings were infiltrated with Xylocaine and epinephrine. The central skin was then deepithelialized. I started on the left side first and then went to the right side. I then mobilized medial and lateral breast flaps at the level of Titi's fascia down to within a centimeter of the chest wall. This was met in the midline of the breast with dissection at the level of Titi's fascia down to within a centimeter of the chest wall. Once the central breast mound pedicle was from the skin envelope, the reduction was then begun. Most of the tissue was removed from the superior aspect of the breast and the lateral aspect of the breast. I then sutured the leading edge of the medial and lateral breast flaps to the midline of the inframammary fold with 2-0 Vicryl suture. The vertical incision was approximated using surgical clips. The excess tissue from the medial and lateral breast flaps were excised and the horizontal incision was approximated using surgical clips. The patient was then placed in a sitting position. Using a vertical limb length of 5 cm, I marcie the new position of the new nipple-areolar complexes on both breasts. They were in good position on the central aspect of the breast mound. Good symmetry was noted between the left breast and the right breast. Good shape and contour and projection was noted and appeared clinically to be a full B cup. The patient was then placed back in the supine position and the surgical clips were removed. The breast wounds were then irrigated with Irrisept 0.05% Chlorhexidine solution which was followed by saline irrigation. Hemostasis was obtained using electrocautery. The tissue removed from the left breast was 1014 grams. The tissue removed from the right breast was 958 grams. The tissue that was removed from the breasts was sent to Pathology for analysis to rule out carcinoma. After hemostasis was obtained using electrocautery, I then sprayed Demetrius absorbable hemostat into both breast wounds. I used 2 vials for each side. I then placed a size 15 Jose Miguel drain into each breast wound to be brought through the lateral aspect of the horizontal incision. I then closed the breast wounds by first approximating the leading edge of the medial and lateral breast flaps to the midline of the inframammary fold with 2-0 Vicryl suture. The deep dermis and subcutaneous tissue of the vertical incision and the horizontal incisions were approximated using 3-0 Monocryl interrupted sutures. While these sutures were being placed, I placed AmnioFill placental connective tissue powder in the Tzone area to help promote healing in this area. I used 1000 mg of AmnioFill for each breast at the Tzone area. The horizontal incision was then approximated using 4-0 Prolene vertical mattress interrupted sutures. The vertical incision was then closed on the skin with 4-0 Prolene interrupted sutures. With a vertical limb length of 5 cm, I marcie a circular incision where the nipple-areolar complex would be brought through this keyhole incision. Incisions were made and the nipple areolar complex was brought through the keyhole incision. The nipple-areolar complex was secured to the breast skin using 3-0 Monocryl interrupted sutures for deep dermis and subcutaneous tissue. The skin was approximated using 4-0 Prolene simple interrupted sutures. This was then covered with Histoacryl skin tissue adhesive. I sutured the drain to the skin using 3-0 nylon suture. At the end of the procedure, the breasts were soft with no evidence of vascular compromise. No evidence of hematomas were noted. The nipples were viable. I then dressed the breasts with a Kerlix gauze and a surgical bra. Then patient tolerated the procedure well and will be sent to the recovery room in satisfactory condition. She will be admitted for surgical observation overnight stay. She will go home tomorrow once she is tolerating oral pain medication. I will remove the drains in a few days. She will keep her head elevated during the initial postoperative period. She will be maintained on a lifting restriction and keep her head elevated during the initial postoperative period. Post-discharge, she may get a compression sports bra as well. She will have the Santiago removed in the morning. She will be sent home on antibiotics and pain medicine. Sutures will be removed in 1-2 weeks. Grafts/Implants Used: AmnioFill Placental Connective Tissue Powder x2, Demetrius. - Complications None. - Admit VTE Documentation VTE Present on Admission: No VTE Mechan Device Prophylaxis: SCD's VTE Pharm Prophylaxis ordered?: Yes Surgery Charges CPT - 60250 ICD-10 - N62, M54.2, M54.6, M25.519, L30.4, Z80.3, M30.0 [id number] N62, M54.2, M54.6, M25.519, L30.4, Z80.3, M30.0
[2020-03-15] MEDS: Hydrocortisone Sod Succinate 100 MG/2 ML Vial IV ×2 (16:45→21:49)
[2020-03-15] MEDS: Gabapentin 100 MG Capsule 200 MG PO (17:43)
[2020-03-15] MEDS: Ensure Surgery 237 ML LIQUID PO (17:43)
[2020-03-15] MEDS: Docusate Sodium 100 MG Capsule PO (21:48)
[2020-03-15] MEDS: Leflunomide 10 MG TABLET 20 MG PO (21:49)
[2020-03-15] MEDS: 0.9% Saline Lock 10 ML Syringe IV (21:53)
[2020-03-15 22:30] LABS: Bedside Glucose 173 mg/dL (70-110)
[2020-03-15] MEDS: Lactated Ringers 1,000 ML 100 ML IV (22:40)
[2020-03-16] VITALS (9 sets, daily range): BP systolic 94–122; BP diastolic 48–57; PULSE 58–89; RESP 16–18; TEMP 36.1–36.7; O2SAT 94–99
[2020-03-16] MEDS: Acetaminophen 500 MG Tablet 1000 MG PO ×3 (00:32→11:44)
[2020-03-16] MEDS: Hydrocortisone Sod Succinate 100 MG/2 ML Vial IV (06:29)
[2020-03-16 06:30] LABS: Hematocrit 29.8 % (37-47); Hemoglobin 9.1 g/dL (12.0-15.0); Mean Corp Hgb Conc 30.5 g/dL (32-36); Mean Corpuscular Hgb 31.8 pg (27.0-32.0); Mean Corpuscular Volume 104.2 fL (81-99); Mean Platelet Vol. 10.5 fl (6.2-12.0); Platelet Count 213 K/mm3 (150-450); RBC Distribution Width CV 13.6 % (11.6-14.6); RBC Distribution Width SD 51.3 fl (35.1-43.9); Red Blood Count 2.86 M/mm3 (4.2-5.4); White Blood Count 11.5 K/mm3 (4.4-11.0)
[2020-03-16 06:46] LABS: Bedside Glucose 128 mg/dL (70-110)
[2020-03-16] MEDS: Albuterol 2.5 MG/3 ML VIAL.NEB. INHALATION ×2 (06:47→12:48)
[2020-03-16 06:59] LABS: Anion Gap 4 (5-15); BUN 24 mg/dL (7-18); Calcium,Total 7.2 mg/dL (8.5-10.1); Chloride 103 mmol/L (98-107); Creatinine, Serum 0.77 mg/dL (0.55-1.02); EST Glomerular Filtration Rate 84 mL/min (>60); Est Glom Filt Rate - Afr Amer 101 mL/min (>60); Glucose 121 mg/dL (74-106); Potassium 4.2 mmol/L (3.5-5.1); Sodium Level 134 mmol/L (136-145)
[2020-03-16] MEDS: Ensure Surgery 237 ML LIQUID PO (08:23)
[2020-03-16] MEDS: Lactated Ringers 1,000 ML 100 ML IV (08:23)
[2020-03-16] MEDS: Calcium Carbonate 500 MG Tablet PO (08:25)
[2020-03-16] MEDS: Gabapentin 100 MG Capsule 200 MG PO ×2 (08:25→11:45)
[2020-03-16] MEDS: Docusate Sodium 100 MG Capsule PO (08:25)
[2020-03-16] MEDS: Furosemide 40 MG Tablet PO (08:25)
[2020-03-16] MEDS: Enoxaparin 40 MG/0.4 ML Syringe SC (08:28)
[2020-03-16] MEDS: Lisinopril 10 MG Tablet PO (08:28)
[2020-03-16 11:50] LABS: Bedside Glucose 122 mg/dL (70-110)
--- NOTE | 2020-03-16 13:48 | PCM.PN.SRG ---
Subjective: Post op day #1 Patient denies any complaints of pain. - Physical Exam Vitals/I&O's: Vital Signs Temp Pulse Resp BP Pulse Ox 97.7 F L 78 16 108/48 L 96 03/16/20 08:30 03/16/20 12:48 03/16/20 12:48 03/16/20 08:30 03/16/20 12:53 Oxygen Flow Rate (L/min) 3 Oxygen Delivery Method Room Air Weight: 236 lb 1.841 oz Body Mass Index (BMI) 41.8 Intake and Output for Last 24 Hours 03/14/20 03/15/20 03/16/20 23:59 23:59 23:59 Intake Total 4220.5 / 4220.5 3065.67 / 3065.67 Output Total 1465 / 1465 1025 / 1025 Balance 2755.5 / 2755.5 2040.67 / 2040.67 FREDERIC drainage since surgery #1 110 ml and #2 107 ml. General: Alert, Oriented x3 HEENT: Atraumatic Oral: Moist Mucosa Lungs: Normal air movement Cardiovascular: Regular rate Extremities: Capillary Refill Less than 3 Seconds Skin: Incision - Incision is dry and intact. Sutures are intact. There is bruising on bilateral breast and on the left nipple. Both nipples are viable. Breasts have good contour. Jose Miguel drains intact and draining serosanguineous drainage. Musculoskeletal: No Tenderness to Palpation of Joints or Extremities Neurological: Cranial nerves II-XII grossly intact Psych/Mental Status: Normal Affect, Appropriate Laboratory Results 03/15/20 22:24: POC Glucose 173 H 03/16/20 06:05: WBC 11.5 H, RBC 2.86 L, Hgb 9.1 L, Hct 29.8 L, MCV 104.2 H, MCH 31.8, MCHC 30.5 L, RDW Std Deviation 51.3 H, RDW Coeff of Katja 13.6, Plt Count 213, MPV 10.5 03/16/20 06:05: Sodium 134 L, Potassium 4.2, Chloride 103, Carbon Dioxide 27.0, Anion Gap 4 L, BUN 24 H, Creatinine 0.77, Estim Creat Clear Calc 71.50, Est GFR (MDRD) Af Amer 101, Est GFR (MDRD) Non-Af 84, BUN/Creatinine Ratio 31.0 H, Glucose 121 H, Calcium 7.2 L, Prealbumin 31.0 03/16/20 06:33: POC Glucose 128 H 03/16/20 11:44: POC Glucose 122 H Current Medications Acetaminophen (Acetaminophen 500 Mg Tablet) 1,000 mg PO Q6 [facility] Last Admin: 03/16/20 11:44 Dose: 1,000 mg Documented by: Albuterol Sulfate (Albuterol 2.5 Mg/3 Ml Vial.Neb.) 2.5 mg INHALATION Q6HWA.RT [facility] Last Admin: 03/16/20 12:48 Dose: 2.5 mg Documented by: Albuterol Sulfate (Albuterol 2.5 Mg/3 Ml Vial.Neb.) 2.5 mg INHALATION Q6H PRN PRN Reason: SOB/WHEEZING Calcium Carbonate (Calcium Carbonate 500 Mg Tablet) 500 mg PO DAILYCM [facility] Last Admin: 03/16/20 08:25 Dose: 500 mg Documented by: Cholecalciferol (Cholecalciferol (Vit D3) 1,000 Unit (25mcg)) 5,000 unit PO DAILY [facility] Last Admin: 03/16/20 08:24 Dose: 5,000 unit Documented by: Dapsone (Dapsone 25 Mg Tablet) 75 mg PO DAILY [facility] Last Admin: 03/16/20 08:24 Dose: 75 mg Documented by: Docusate Sodium (Docusate Sodium 100 Mg Capsule) 100 mg PO BID [facility] Last Admin: 03/16/20 08:25 Dose: 100 mg Documented by: Enoxaparin Sodium (Enoxaparin 40 Mg/0.4 Ml Syringe) 40 mg SC DAILY [facility] Last Admin: 03/16/20 08:28 Dose: 40 mg Documented by: Enteral Nutritional Formula (Ensure Surgery 237 Ml Liquid) 237 ml PO TIDCM [facility] Last Admin: 03/16/20 11:45 Dose: Not Given Documented by: Furosemide (Furosemide 40 Mg Tablet) 40 mg PO BIDLX [facility] Last Admin: 03/16/20 08:25 Dose: 40 mg Documented by: Gabapentin (Gabapentin 100 Mg Capsule) 200 mg PO TIDCM [facility] Last Admin: 03/16/20 11:45 Dose: 200 mg Documented by: Hydromorphone HCl (Hydromorphone 1 Mg/Ml Syringe) 0.5 - 1 mg IV Q3H PRN PRN PRN Reason: Pain Score 6-10 Clindamycin Phosphate 600 mg/ (Dextrose) 54 mls @ 100 mls/hr IV Q8 [facility] Last Infusion: 03/16/20 07:12 Dose: Infused Documented by: Lactated Ringer's () 1,000 mls @ 100 mls/hr IV .Q10H [facility] Last Infusion: 03/16/20 11:47 Dose: 15 mls/hr Documented by: Insulin Human Lispro (Insulin Lispro 100 Unit/Ml Insuln.Pen) 1 - 6 unit SC Q4H PRN PRN; Protocol PRN Reason: BG>/= 180, SEE PROTOCOL Leflunomide (Leflunomide 10 Mg Tablet) 20 mg PO QHS [facility] Last Admin: 03/15/20 21:49 Dose: 20 mg Documented by: Lisinopril (Lisinopril 10 Mg Tablet) 10 mg PO BID [facility] Last Admin: 03/16/20 08:28 Dose: 10 mg Documented by: Magnesium Chloride (Magnesium Chloride 64 Mg Delay Rel.Tablet) 128 mg PO DAILY PRN PRN PRN Reason: Constipation Methadone HCl (Methadone 5 Mg Tablet) 5 mg PO BID [facility] Last Admin: 03/16/20 08:32 Dose: 5 mg Documented by: Metoprolol Succinate (Metoprolol(Xl)Succ 50 Mg Tablet) 50 mg PO QHS [facility] Last Admin: 03/15/20 22:16 Dose: Not Given Documented by: Ondansetron HCl (Ondansetron Odt 4 Mg Tablet) 4 mg PO Q6H PRN PRN PRN Reason: NAUSEA Oxycodone HCl (Oxycodone 5 Mg Tablet) 5 - 10 mg PO Q4H PRN PRN PRN Reason: Pain Score 4-10 Potassium Chloride (Potassium Chloride 20 Meq Tablet) 20 meq PO BIDCM [facility] Last Admin: 03/16/20 08:24 Dose: 20 meq Documented by: Scopolamine HBr (Scopolamine 1mg/72hr Patch) 1 patch TD Q3D [facility] Stop: 03/16/20 14:15 Last Admin: 03/15/20 16:22 Dose: Not Given Documented by: Sodium Chloride (0.9% Saline Lock 10 Ml Syringe) 10 - 40 ml IV UD PRN PRN Reason: SALINE FLUSH Last Admin: 03/15/20 21:53 Dose: 10 ml Documented by: Venlafaxine HCl (Venlafaxine Hcl 100 Mg Tablet) 100 mg PO BID [facility] Last Admin: 03/16/20 08:25 Dose: Not Given Documented by: Medical Necessity - Tobacco Use Smoking Status: Never smoker Tobacco Use: Non-smoker Assessment/Plan All Active Problems (Last Reviewed 03/12/20 @ 15:[address] You Montero MD) Encounter for adjustment and management of vascular access device (Acute) Edema extremities (Acute) Dyspnea on exertion (Acute) Lung nodule (Ruled-out) 1. Bilateral macromastia. 2. Neck pain. 3. Thoracic back pain. 4. Bilateral shoulder pain from shoulder grooving from the weight of the breasts on her bra straps. 5. Inframammary intertrigo. 6. Family history of breast cancer. 7. Polyarteritis nodosa. Patient is doing well. Her pain is well controlled. Operative dressing removed. Breasts have good contour, there is some bruising bilaterally. Nipples are viable, left nipple has some bruising. Incisions are dry and intact. Bilateral Jose Miguel drains are draining serosanguineous drainage. Continue wear compression at all times. Keep head elevated. Currently on Clindamycin IV. When she is discharged she will be placed on oral antibiotics until her drains are removed. Will have her follow up in the office on Sunday03/22/20 at 1600. Prealbumin 31.0. Encouraged increase protein intake to help with healing. Plan will be to discharge home later today.
--- NOTE | 2020-03-16 16:05 | DCINST_ITS ---
You will use the following diet at home:: No restrictions, Other - encourage nutritional supplementation with protein to help the healing process. Discharge Activity: May not drive while taking narcotic pain medications., May Not Shower - until the drains are removed., - - keep head elevated. no heavy lifting. wear compression bra. May shower in (days): 6 - after the drains are removed in the office on 03/22/20. May resume sexual activity in: 10-14 days Weight Bearing Status: Weight bearing as tolerated Lifting Restrictions: 20 lbs. Keep extremity elevated above heart level: - - elevate head. Call your doctor if your incision/area has: Continuous Slow Oozing, Sudden Increased Bleeding, Increased Pain/ Swelling, Increased Redness, Foul Smelling Discharge, Swelling at the incision site, - - black nipples. Call your doctor if you observe: Fever of 101 or Higher, Coldness, Increased Pain, Shortness of breath, Chest pain, Calf discomfort, Uncontrolled pain Suture Line Care: - - dry dressings daily. Change Dressing in (Days):: 1 - dry dressings daily. Cleanse incision/area with: - - may get the incisions wet in the shower after the drains are removed. Drain: Suction - remington drain x2 to bulb suction. empty and record output daily. Allergies/Adverse Reactions: Allergies amoxicillin Allergy (Mild, Verified 03/15/20 06:14) Unknown mycophenolate mofetil [From CellCept] Allergy (Verified 03/15/20 06:14) red, burning, HTN Sulfa (Sulfonamide Antibiotics) Allergy (Verified 03/15/20 06:14) hives, swelling Medications to take at Discharge potassium chloride 20 mEq tablet,extended release 20 meq PO BID 05/24/17 lisinopril 10 mg tablet 10 mg PO BID 10/02/17 albuterol sulfate 90 mcg/actuation aerosol inhaler 2 puff INHALATION Q6H PRN #18 g 12/24/17 Furosemide 40 mg PO BID 04/30/19 Leflunomide 20 mg PO QHS 04/30/19 Methadone HCl 5 mg PO BID 04/30/19 Metoprolol(XL)Succ [Toprol Xl (Beta Kanwal)] 50 mg PO QHS 04/30/19 dapsone 25 mg tablet 75 mg PO DAILY tab 09/04/19 venlafaxine 100 mg tablet 100 mg PO BID tab 09/04/19 Calcium Carbonate [Calcium] 600 mg PO DAILY 09/08/19 Cholecalciferol (Vitamin D3) [Vitamin D3] 5,000 unit PO DAILY 09/08/19 Fluticasone/Vilanterol [Breo Ellipta 100-25 Mcg INH] 1 inh INHALATION DAILY 09/08/19 Clindamycin HCl 300 mg PO TID #21 cap 03/16/20 Oxycodone HCl/Acetaminophen [Percocet 5/325] 1 tablet PO Q4H PRN PRN 7 Days #40 tablet 03/16/20 The following prescriptions were given: Clindamycin HCl 300 mg PO TID #21 cap Transmission Status: Pending to [facility] Oxycodone HCl/Acetaminophen [Percocet 5/325] 1 tablet PO Q4H PRN PRN 7 Days #40 tablet PRN Reason: Pain Score 6-10 Transmission Status: Sent to [facility] Primary Care Physician: Mustapha Gonzales MD [Primary Care Provider] - Test Results: Test results from this visit will be discussed in further detail at your follow- up appointment, if applicable. Please Follow Up With: You Montero MD When: sunday03/22/20. call [phone] for appt time. Proposed Discharge Date: 03/16/20
== END 2020-03-16 16:30 | disposition home or self-care (01) ==
LOC: SDC 13:50 → MS3 13:50
PROVIDERS: Anesthesiology; Admitting Provider Surgery; PCP Internal Medicine Infectious Disease; Referring Provider Surgery; Visit Provider Surgery
PROC: 0H0U0ZZ Alteration of Left Breast, Open Approach (ICD-10-PCS; CPT 19318; principal; 2020-03-15 07:15)
DX: N62 Hypertrophy of breast (principal); Z20.828 Contact with and (suspected) exposure to other viral communicable diseases; M54.2 Cervicalgia; M54.6 Pain in thoracic spine; L30.4 Erythema intertrigo; M30.0 Polyarteritis nodosa; M25.511 Pain in right shoulder; M25.512 Pain in left shoulder; E66.01 Morbid (severe) obesity due to excess calories; Z68.41 Body mass index [BMI] 40.0-44.9, adult; G47.33 Obstructive sleep apnea (adult) (pediatric); I10 Essential (primary) hypertension; J45.909 Unspecified asthma, uncomplicated; I27.20 Pulmonary hypertension, unspecified; E78.00 Pure hypercholesterolemia, unspecified; Z80.3 Family history of malignant neoplasm of breast; Z79.899 Other long term (current) drug therapy; Z86.711 Personal history of pulmonary embolism; F41.9 Anxiety disorder, unspecified; F32.9 Major depressive disorder, single episode, unspecified
CPT/HCPCS: 00402; 19318; 36415; 80048; 82962; 83735; 84134; 85027; 87426; 88305; 93005; 94640; 94762; 96361; 96365; 96366; 96372; 96375; 96376; 99218; 99251; C9803; J7120; A4216; G0378; G0379; G0463; J2405; Q9968

== ENCOUNTER → 2020-04-13 | Outpatient (CLI) | payer OTHER, SELFPAY | END | disposition home or self-care (01) | LOC: LABSPEC 16:41 | PROVIDERS: PCP Internal Medicine Infectious Disease; Referring Provider Nurse Practitioner Family; Visit Provider Nurse Practitioner Family | DX: N62 Hypertrophy of breast (principal); T81.89XA Other complications of procedures, not elsewhere classified, initial encounter | CPT/HCPCS: 87070; 87075; 87205 ==

== ENCOUNTER → 2020-06-08 | Outpatient (CLI) | payer OTHER, SELFPAY | END | disposition home or self-care (01) | LOC: LABSPEC 16:54 | PROVIDERS: PCP Internal Medicine Infectious Disease; Referring Provider Nurse Practitioner Family; Visit Provider Nurse Practitioner Family | DX: L98.492 Non-pressure chronic ulcer of skin of other sites with fat layer exposed (principal); T81.89XA Other complications of procedures, not elsewhere classified, initial encounter; N62 Hypertrophy of breast; M54.2 Cervicalgia; M25.519 Pain in unspecified shoulder; L30.4 Erythema intertrigo; Z80.3 Family history of malignant neoplasm of breast; M54.6 Pain in thoracic spine; G89.29 Other chronic pain | CPT/HCPCS: 87070; 87075; 87077; 87186; 87205 ==

== ENCOUNTER → 2020-07-28 | Outpatient (CLI) | payer OTHER, SELFPAY ==
[2020-07-28 15:46] VITALS: BMI 41.8
== END | disposition home or self-care (01) ==
LOC: LABSPEC 16:59
PROVIDERS: Referring Provider Nurse Practitioner Family; Visit Provider Nurse Practitioner Family
DX: N62 Hypertrophy of breast (principal); L98.492 Non-pressure chronic ulcer of skin of other sites with fat layer exposed
CPT/HCPCS: 87070; 87075; 87077; 87186; 87205

== ENCOUNTER → 2020-11-03 | Outpatient (CLI) | payer OTHER, SELFPAY | END | disposition home or self-care (01) | LOC: LABSPEC 16:38 | PROVIDERS: Visit Provider Nurse Practitioner Family | DX: L98.492 Non-pressure chronic ulcer of skin of other sites with fat layer exposed (principal) | CPT/HCPCS: 87070; 87075; 87205 ==

== ENCOUNTER 2022-09-21 10:44 | Day surgery (SDC) | payer OTHER, SELFPAY ==
[2022-09-21] VITALS (10 sets, daily range): BP systolic 110–149; BP diastolic 47–84; PULSE 66–77; RESP 16–18; TEMP 36.7–37; O2SAT 94–100; BMI 39.5
[2022-09-21] MEDS: Lactated Ringers 1,000 ML 15 ML IV (10:55)
--- NOTE | 2022-09-21 11:00 | OP.PCM_ITS ---
Problems Associated Problem List Diagnoses (1) Lumbar disc herniation: (2) Lumbar stenosis: Report of Operation Description of Surgical Findings:: REPORT OF OPERATION PREOPERATIVE DIAGNOSES: 1. Lumbar stenosis, L5-S1 with spondylosis. 2. Lumbar disc herniation L5-S1. POSTOPERATIVE DIAGNOSES: 1. Lumbar stenosis, L5-S1 with spondylosis. 2. Lumbar disc herniation L5-S1. PROCEDURE PERFORMED: 1. L5 laminectomy 2.revision right L5-S1 discectomy SURGEON: [ ] Raymundo Olson DO REPAIRER RESISTANCE WELDING MACHINES: Yamilet Jacob PA-C ANESTHESIA: General endotracheal anesthesia. IV FLUIDS: 2000 cc ESTIMATED BLOOD LOSS: 20 cc URINE OUTPUT: STATEMENT OF MEDICAL NECESSITY: The patient is a 52-year-old female with intractable back and leg pain. Image studies confirm above diagnosis. She has failed conservative treatment to include: medicine, therapy, and injections. The patient opted for operative intervention, understanding the risks to include, but not limited to infection, bleeding, damage to nerves, arteries, and veins, possibility of spinal fluid leak, nonunion, hardware failure, continued pain, need for further surgery, deep vein thrombosis, pulmonary embolism, heart attack, risk of stroke, or . DESCRIPTION OF PROCEDURE: The patient was identified in the preoperative holding area. There, she received the preoperative IV antibotics and was then transferred to the operating suite. Once in the operating suite, after general endotracheal anesthesia was established, the patient was transferred to the [place] operating table in the prone position. All bony prominences were padded accordingly. The lumbar spine was prepped and draped in standard surgical fa shion. Midline incision was made and taken down to the lumbodorsal fascia. This was divided and subperiosteal dissection taken down to the level of the bilateral L5-S1 facet joints. Deep retractors were placed. A bone scalpel was used to make cuts in the lamina of L5 bilaterally and then a series of Kerrisons and rongeurs was used removing the spinous process and lamina of L5. Curettes and Kerrisons were used to perform bilateral foraminotomies at this level. The nerve root and dura were retracted medially. A large subligamentous disc herniation was identified. A knife was used to perform an annulotomy at L5-S1 on the right and a large subligamentous disc was removed using pituitaries, any loose fragments were identified and removed and the wound was irrigated. Tissel was placed over the dura as a hemostatic agent. The fascia was closed with #1 Vicryl, subcutaneous with 2-0 Vicryl, skin was closed with 2-0 nylon. Sterile dressing was applied with 4 x 4, ABD, and tape. Sponge, instrument, and needle counts were correct at the end of the case. The patient was extubated, taken to PACU without incident. Yamilet Jacob PA-C was present during the entire duration of the case and nece ssaamy for critical parts of the case including retraction and closure Surgeon: Pierre Olson right of way supervisor: Yamilet Jacob Type of Anesthesia: General Estimated Blood Loss (mL): 20 cc Fluids Replaced: 2000 cc Complications None Admit VTE Documentation VTE Present on Admission: No
--- NOTE | 2022-09-21 11:00 | PCM.PN.ORT ---
Subjective Subjective The patient was seen and examined postoperatively. She was lying in bed resting comfortably. Her pain is controlled. She has no complaints including numbness tingling or weakness Physical Exam Const alert, oriented x3 and no apparent distress General Appearance: cooperative, comfortable and well kempt HEENT normocephalic and head/scalp atraumatic Head and Scalp: normal to inspection Eyes EOMs intact bilaterally and conjunctivae normal Neck full ROM General: normal visual inspection Chest inspection of chest normal and palpation of chest normal Resp normal respiratory effort and normal air movement Cardio regular rate, regular rhythm and peripheral pulses 2+ throughout GI soft to palpation, non-tender and non-distended Back/Spine Back/Spine Narrative: Dressing clean dry and intact Cervical Spine: cervical ROM normal Thoracic Spine / Upper Back: normal to inspection Lumbar Spine / Lower Back: normal to inspection Extremity normal to inspection, full ROM, normal capillary refill, no clubbing, cyanosis or edema and no calf tenderness Skin no rashes or lesions noted General Skin Exam: no breakdown Neuro oriented x3, CN's II-XII intact bilaterally, moves all extremities, no focal motor deficits, no sensory deficits noted and deep tendon reflexes 2+ bilaterally Motor Exam: strength 5/5 throughout and muscle tone normal throughout Assessment & Plan Assessment/Plan (1) Lumbar disc herniation: PLAN: Okay to discharge home See discharge instructions Follow-up with Dr. Olson as scheduled (2) Lumbar stenosis:
--- NOTE | 2022-09-21 11:50 | RAD_ITS ---
EXAM: XR SPINE, 1 VIEW CLINICAL INDICATION: L5 LAMINECTOMY, REVISION RT L5 DISCECTOMY -- 1 IMAGE, 15.2 SEC FLUORO TECHNIQUE: Single view of the spine. RADIATION DOSE: 11.49 MGY COMPARISON: No relevant prior studies available. FINDINGS: Only one view provided. Lateral view provided with a metallic localizer tip posterior to the mid body of L5 region. L5-S1 disc space narrowing. RAD/Spine 1 View Any Level IMPRESSION: Fluoroscopic localization. Electronically Signed: Yolette Ruiz MD at 7:59 EDT ,
[2022-09-21 11:54] LABS: Prothrombin Time (Protime)PT. 13.5 SECONDS (11.7-14.9)
--- NOTE | 2022-09-21 12:11 | NURSING ---
This nurse accessed patient's right chest port for OR 08/23/2022. No blood return was noted. Port flushed without resistance. No subcutaneous infiltration assessed. Anesthesia provider order the port to be flushed and heparin locked d/t no blood returned. Patient tolerated well. Peripheral iv started without complication.
[2022-09-21] MEDS: THROMBIN (RECOMBINANT) 20,000 UNIT VIAL 20000 UNIT TOPICAL (12:29)
[2022-09-21] MEDS: Bupivacaine 0.25% 30 ML Vial (13:22)
== END 2022-09-21 16:42 | disposition home or self-care (01) ==
LOC: SDC 10:48 → AC 10:49
PROVIDERS: PCP Internal Medicine Infectious Disease; Referring Provider Orthopaedic Surgery; Visit Provider Orthopaedic Surgery
PROC: (CPT 63030; principal; 2022-09-21 12:20)
DX: M48.061 Spinal stenosis, lumbar region without neurogenic claudication (principal); M30.0 Polyarteritis nodosa; I27.20 Pulmonary hypertension, unspecified; E66.01 Morbid (severe) obesity due to excess calories; Z68.41 Body mass index [BMI] 40.0-44.9, adult; M51.26 Other intervertebral disc displacement, lumbar region; M51.27 Other intervertebral disc displacement, lumbosacral region; M47.817 Spondylosis without myelopathy or radiculopathy, lumbosacral region; E65 Localized adiposity; G89.29 Other chronic pain; Z80.3 Family history of malignant neoplasm of breast; I10 Essential (primary) hypertension; L30.4 Erythema intertrigo; J45.40 Moderate persistent asthma, uncomplicated; G47.33 Obstructive sleep apnea (adult) (pediatric); F10.11 Alcohol abuse, in remission; G47.00 Insomnia, unspecified; Z86.711 Personal history of pulmonary embolism; E78.00 Pure hypercholesterolemia, unspecified; M96.1 Postlaminectomy syndrome, not elsewhere classified; M47.26 Other spondylosis with radiculopathy, lumbar region; M51.36 Other intervertebral disc degeneration, lumbar region
CPT/HCPCS: 63042; 63030; 00670; 72020; 76000; 85610; J7120; A4216; J2405

== ENCOUNTER 2022-11-09 10:22 | Day surgery (SDC) | payer OTHER, SELFPAY ==
[2022-11-09] VITALS (8 sets, daily range): BP systolic 159–208; BP diastolic 103–144; PULSE 89–123; RESP 16–20; TEMP 36.1–36.6; O2SAT 90–98; BMI 43.0
[2022-11-09] MEDS: Lactated Ringers 1,000 ML 15 ML IV (11:02)
--- NOTE | 2022-11-09 12:58 | OP.PCM_ITS ---
Problems Associated Problem List Diagnoses (1) Lumbar stenosis: Report of Operation Date of Procedure: 11/09/22 Pre-Operative Diagnosis: 1. Delayed wound healing lumbar 2. possible retained foreign body lumbar incision Post-Operative Diagnosis: 1. Delayed wound healing lumbar 2. Retained foreign body lumbar incision Surgery/Procedure Performed:: 1. Irrigation, debridement, wound exploration lumbar 2. Excision of retained foreign body Description of Surgical Findings:: The patient is a 52-year-old female who underwent discectomy surgery. She had her mom attempted to remove her sutures at home. She subsequently developed pain and swelling at the superior aspect of her incision. It was recommended that she undergo irrigation debridement with wound exploration. The patient opted for operative intervention understanding the risk to include but not limited to infection, bleeding, damage to nerves arteries and veins, possibility of spinal fluid leak, continued pain, need for further surgery, deep vein thrombosis, pulmonary embolism, heart attack, risk of stroke or . The patient was identified in the preoperative holding area. She was transferred to the operating suite. After general endotracheal anesthesia was established she was transferred to the operating table in the prone position. All bony prominences were padded accordingly. The lumbar spine was prepped and draped in a standard surgical fashion. Her previous midline incision was reopened and taken down to the lumbodorsal fascia. A small amount of serous fluid was encountered. Cultures were taken. A retained fragment of nylon suture was identified and removed. The incision was thoroughly irrigated. The fascia was inspected and found to be intact. The fascia was reopened. No significant fluid or necrotic tissue was encountered deep to the fascia. A second set of cultures were taken. The incision was thoroughly irrigated with 3 L of saline through a pulse security system installer. The fascia was closed with #1 Vicryl, subcutaneous with 2-0 Vicryl and skin with 2-0 nylon. Sponge instrument and needle counts were correct at the end of the case. The patient was extubated and taken to the PACU without incident. Surgeon: Pierre Olson Type of Anesthesia: General Specimen's removed: Lumbar incision cultures Estimated Blood Loss (mL): 10 cc Fluids Replaced: 500 cc Complications None Admit VTE Documentation VTE Present on Admission: No
--- NOTE | 2022-11-09 13:01 | PCM.PN.ORT ---
Subjective Subjective The patient was seen and examined postop. She is lying in bed resting comfortably. Pain controlled. No complaints Objective Data Objective Data Vital Signs: Vital Signs Temp Pulse Resp BP Pulse Ox O2 Del Method 97 F L 112 H 16 191/105 H 95 Room Air 11/09/22 10:56 11/09/22 10:56 11/09/22 10:56 11/09/22 10:56 11/09/22 10:56 11/09/22 10:56 Oxygen Delivery Method Room Air Weight: 242 lb 8.136 oz Body Mass Index (BMI) 43.0 Physical Exam Const alert, oriented x3 and no apparent distress General Appearance: cooperative, comfortable and well kempt HEENT normocephalic and head/scalp atraumatic Head and Scalp: normal to inspection Eyes EOMs intact bilaterally and conjunctivae normal Neck full ROM General: normal visual inspection Chest inspection of chest normal and palpation of chest normal Resp normal respiratory effort and normal air movement Cardio regular rate, regular rhythm and peripheral pulses 2+ throughout GI soft to palpation, non-tender and non-distended Back/Spine Back/Spine Narrative: Dressing clean dry and intact. Cervical Spine: cervical ROM normal Thoracic Spine / Upper Back: normal to inspection Lumbar Spine / Lower Back: normal to inspection Extremity normal to inspection, full ROM, normal capillary refill, no clubbing, cyanosis or edema and no calf tenderness Skin no rashes or lesions noted General Skin Exam: no breakdown Neuro oriented x3, CN's II-XII intact bilaterally, moves all extremities, no focal motor deficits, no sensory deficits noted and deep tendon reflexes 2+ bilaterally Motor Exam: strength 5/5 throughout and muscle tone normal throughout Assessment & Plan Assessment/Plan (1) Delayed surgical wound healing: PLAN: Okay to discharge home See discharge instructions Follow-up with Dr. Olson as scheduled (2) Lumbar stenosis:
[2022-11-09] MEDS: Clindamycin 600 MG/50 ML BAG 100 MG IV (14:23)
[2022-11-09] MEDS: Lidocaine 1% (30 ml sdv) 30 ML Vial (14:43)
== END 2022-11-09 16:37 | disposition home or self-care (01) ==
LOC: SDC 10:24 → AC 10:26
PROVIDERS: PCP Internal Medicine Infectious Disease; Referring Provider Orthopaedic Surgery; Visit Provider Orthopaedic Surgery
PROC: (CPT 22899; principal; 2022-11-09 12:50)
DX: M48.061 Spinal stenosis, lumbar region without neurogenic claudication (principal); M30.0 Polyarteritis nodosa; I27.20 Pulmonary hypertension, unspecified; T81.509A Unspecified complication of foreign body accidentally left in body following unspecified procedure, initial encounter; E65 Localized adiposity; Z80.3 Family history of malignant neoplasm of breast; I10 Essential (primary) hypertension; G47.33 Obstructive sleep apnea (adult) (pediatric); J45.40 Moderate persistent asthma, uncomplicated
CPT/HCPCS: 22899; 87070; 87075; 87205; J7120; J2405

== ENCOUNTER → 2023-09-06 | Outpatient (CLI) | payer OTHER, SELFPAY ==
[2023-09-11 15:08] LABS: Age Gdln ACOG Testing 30-65 (.); HPV APTIMA, High Risk Negative (Negative)
[2023-09-11 22:01] LABS: HPV Reflexed? YES, CHARGE PATIENT
== END | disposition home or self-care (01) ==
LOC: LABSPEC 15:05
PROVIDERS: PCP Internal Medicine Infectious Disease; Visit Provider Family Medicine
DX: Z12.4 Encounter for screening for malignant neoplasm of cervix (principal)
CPT/HCPCS: 87624; 88175; G0145

== ENCOUNTER 2023-11-23 15:59 | Inpatient (IN) | payer OTHER, SELFPAY ==
[2023-11-23] VITALS (7 sets, daily range): BP systolic 163–202; BP diastolic 84–126; PULSE 66–106; RESP 14–26; TEMP 36.6–36.9; O2SAT 93–98; BMI 42.7
--- NOTE | 2023-11-23 17:52 | EDS_ITS ---
HPI History of Present Illness Chief Complaint: Rash Informant: patient Narrative Narrative: Patient is a 53-year-old female with history of obstructive sleep apnea, hypertension, polyarteritis nodosum, pulmonary hypertension and immunosuppression on dapsone, leflunomide and Renflexis presenting with rapidly progressing rash. Patient states she has had 2 fissures on her bilateral great toes for some time. She has been putting lotion on it. Over the past few days she has had a progressive rash develop on her feet and her hands that is moving up her legs. She denies any fevers. She notes the rash is itchy. She is now having sloughing of skin from her feet. She notes there is an odor to it. She saw her PCP today, Dr. Hugo, who recommended she go to the hospital for IV antibiotics. She is having a rash around her mouth but denies any lesions or sores in her mouth or throat. Denies any new medications. Is not currently on any antibiotics. Denies any new exposures. Denies any recent travel. Denies any fevers or difficulty breathing. [facility] Medical History Cutaneous polyarteritis nodosa Wears glasses Anxiety Depression Fatty liver Pulmonary embolism History of sleep apnea Non-smoker History of stress test History of echocardiogram History of bilateral breast reduction surgery Candidal skin infection Non-pressure chronic ulcer of skin of other sites with fat layer exposed Nonhealing surgical wound Alcohol use disorder, mild, in sustained remission Generalized anxiety disorder MDD (major depressive disorder), recurrent severe, without psychosis Abdominal panniculus Family history of breast cancer Intertrigo Shoulder pain Chronic thoracic back pain Chronic neck pain Macromastia Vitamin deficiency Heart murmur High cholesterol Back problem Asthma Seasonal allergies Moderate persistent asthma BELLA (obstructive sleep apnea) Staph infection Plantar fasciitis Hypokalemia Morbid obesity with BMI of 40.0-44.9, adult Insomnia Gastritis Hepatomegaly Elevated liver enzymes Hypertension Polyarteritis nodosa (~2008) Pulmonary hypertension Dyspnea on exertion Edema extremities Home Medications ?Medication ?Instructions ?Recorded ?Last Taken ?Type potassium chloride 20 mEq 20 meq PO BID SUPPLEMENT 05/24/17 Unknown History tablet,extended release lisinopril 10 mg tablet 10 mg PO BID HTN 10/02/17 11/09/22 07:30 History furosemide 40 mg tablet 40 mg PO BID 04/30/19 03/15/20 History leflunomide 20 mg tablet 20 mg PO QHS AUTO-IMMUNE DZ 04/30/19 Unknown History metoprolol succinate 50 mg 50 mg PO QHS HTN 04/30/19 09/21/22 History tablet,extended release 24 hr dapsone 25 mg tablet 75 mg PO DAILY AUTO-IMMUNE DZ 09/04/19 Unknown History Cholecalciferol (Vitamin D3) 5,000 unit PO DAILY SUPPLEMENT 09/08/19 Unknown History [Vitamin D3] calcium carbonate 600 mg PO DAILY SUPPLEMENT 09/08/19 Unknown History doxepin 50 mg capsule 50 mg PO QHS SLEEP 09/08/22 Unknown History infliximab-abda 100 mg intravenous 100 mg IV .Q6WK AUTO-IMMUNE DZ 09/08/22 Unknown History solution (Renflexis) hydrocodone-acetaminophen 5-325mg 1 tab PO Q6H 7 days #28 tabs 09/21/22 Unknown Rx 5mg-325mg hydrocodone-acetaminophen 5-325mg 1 tab PO Q6H 7 days #28 tabs 11/09/22 Unknown Rx 5mg-325mg clonidine HCl 0.1 mg tablet 0.1 mg PO BID 10/18/23 Unknown History loperamide 2 mg capsule 2 mg PO Q6H PRN 10/18/23 Unknown History ondansetron 4 mg disintegrating 4 mg PO Q8H 10/18/23 Unknown History tablet rosuvastatin 10 mg tablet 10 mg PO DAILY 10/18/23 Unknown History Allergy/AdvReac Type Severity Reaction Status Date / Time amoxicillin Allergy Mild Unknown Verified 11/23/23 16:00 mycophenolate mofetil (From Allergy red, Verified 11/23/23 16:00 CellCept) burning, HTN Sulfa (Sulfonamide Allergy hives, Verified 11/23/23 16:00 Antibiotics) swelling Family History Father Sudden cardiac CAD (coronary artery disease) from [place] age 59 Other Asthma Heart disease High cholesterol History of hormone disturbance Hypertension Myocardial infarction Severe allergy Surgical History History of colonoscopy History of bilateral cataract extraction History of laminectomy History of bilateral breast reduction surgery s/pport placement (~09/15/19) H/O right knee surgery L Lower leg surgery balloon sinuplasty History of bilateral tubal ligation History of appendectomy History of endometrial ablation Social History household members: spouse housing: house current occupational status: employed current occupation: [employer] pets and animals: Yes pets and animals: dog(s) and farm animals Smoking Status: Never smoker second hand exposure: No alcohol intake: current alcohol intake frequency: holidays/special occasions only Alcohol type: wine substance use type: does not use additional social history: DOES USE ASPIRIN DOES USE IBUPROFEN ROS ROS ED Constitutional Constitutional ED: Denies chills or fever(s) ENT ENT ED: Denies sore throat Cardiovascular Cardiovascular: Denies chest pain Respiratory/Chest Respiratory/Chest: Denies cough Gastrointestinal Gastrointestinal: Denies abdominal pain, nausea or vomiting Musculoskeletal Musculoskeletal: Denies arthralgias or myalgias Integumentary Reports rash Neurologic Neurologic: Denies paresthesias or weakness EXAM Physical Exam Const Vital Signs: 11/23/23 16:01 11/23/23 18:00 11/23/23 18:04 Temperature 97.9 F 98.4 F Temperature Source Temporal Oral Pulse Rate 106 H 66 97 Respiratory Rate 18 14 16 Blood Pressure 187/105 H 173/105 H 168/98 H Blood Pressure Mean 132 127 121 Pulse Ox 98 98 98 Oxygen Delivery Method Room Air Room Air 11/23/23 19:00 11/23/23 20:00 11/23/23 21:00 Temperature 98.1 F 98.2 F 98.2 F Temperature Source Temporal Temporal Oral Pulse Rate 96 101 H 104 H Respiratory Rate 18 19 H 26 H Blood Pressure 163/96 H 202/126 H 188/84 H Blood Pressure Mean 118 151 118 Pulse Ox 98 95 93 Oxygen Delivery Method Room Air Room Air 11/23/23 22:00 Temperature Temperature Source Pulse Rate 99 Respiratory Rate 22 H Blood Pressure 200/106 H Blood Pressure Mean 137 Pulse Ox 95 Oxygen Delivery Method Positive well nourished and well developed General Appearance ED: well developed and NAD HEENT Reports TM's clear and moist mucous membranes HEENT Narrative: No oral lesions or tongue lesions appreciated. Normal oropharynx. Lesions on the lips Tympanic Membrane ED: Yes TM's clear Eyes PERRL and EOMs intact bilaterally Neck supple Neck Narrative: No meningeal signs Chest Wall inspection of chest normal and palpation of chest normal Resp normal respiratory effort and clear to auscultation bilaterally Cardio regular rate and regular rhythm GI normal to inspection, nondistended, normoactive bowel sounds and non-tender Extremity Extremity Narrative: No deformity appreciated General Extremety ED: Yes edema; Negative for tenderness General Extremity: edema Neuro oriented x3 Sensorium / Orientation: alert Motor Exam: Negative for general weakness Psych mental status grossly normal Skin Skin Narrative: Patient has extensive erythematous macular rash on the feet going up the leg. Erythema that is coalesced on the feet and there is sloughing of the skin over the plantar aspect of the foot (right worse than left). On the right foot there is almost complete sloughing of the outer layer of skin. There is chronic. Fissures of the plantar aspect of the great toes bilaterally. Diffusely on the extremities there are scattered small areas of erythema and dry skin. On the cuticles of the bilateral hands there is crusting and tenderness. Patient has yellow crusting of the webbing of her hands as well. There are pustules on the bilateral palms of the hands with no active drainage. Scattered erythema of the bilateral AC fossa's. MDM MDM MDM Narrative Medical decision making narrative: Patient evaluated for pretty significant progression of rash. She has sloughing of the skin on her feet. I am concerned for cellulitis on the feet or a secondary bacterial infection. The initial rash looks more like psoriasis versus eczema. Patient denies any history of this however. On the hands raise the question of dyshidrotic eczema. However, I am also concerned for possible secondary viral infection such as eczema herpeticum. Patient is nontoxic- appearing but uncomfortable. Will be started on vancomycin for concern of secondary bacterial infection as well as IV acyclovir. HSV swab as well as wound swabs are obtained. Will obtain labs. I do think patient will require admission for IV medication however I do think she will require dermatology consult we do not have that here. Will try to arrange for transfer. Patient is given morphine and Benadryl for symptoms as it is painful and itchy. Other sloughing of the skin patient has a negative Nikolsky sign. Lower suspicion for SJS/TENS especially as patient is not have any mucosal involvement however there is a rash on her lips. She is immunosuppressed as well and I am not sure if there is an underlying autoimmune component to this. [facility] Does not have dermatology and patient. I spoke with [facility] and patient is excepted by Dr. Cummings. [facility] does not have a bed and likely will not have a bed to the morning will admit to the medicine service. Case discussed with Dr. Mg. Lab Data Attestation: I reviewed the patient's lab results. Labs: Laboratory Results - last 24 hr 11/23/23 11/23/23 18:47 19:33 WBC 8.7 RBC 4.31 Hgb 13.4 Hct 42.6 MCV 98.8 MCH 31.1 MCHC 31.5 L RDW Std Deviation 54.9 H RDW Coeff of Katja 15.2 H Plt Count 185 MPV 10.6 Immature Gran % (Auto) 0.300 Neut % (Auto) 63.3 Lymph % (Auto) 19.2 [place] % (Auto) 10.9 H Eos % (Auto) 5.4 H Baso % (Auto) 0.9 Absolute Neuts (auto) 5.5 Absolute Lymphs (auto) 1.68 Nucleated RBC % 0.2 ESR 33 H PT 14.8 INR 1.2 APTT 25.8 Sodium 139 Potassium 3.1 L Chloride 107 Carbon Dioxide 23.0 Anion Gap 9 BUN 14 Creatinine 0.78 Estim Creat Clear Calc 97.84 Est GFR (MDRD) Af Amer 98 Est GFR (MDRD) Non-Af 81 BUN/Creatinine Ratio 17.9 Glucose 86 Lactic Acid 2.7 H* Calcium 9.7 Total Bilirubin 0.80 AST 85 H ALT 73 H Alkaline Phosphatase 104 C-React Prot Ext Range 7.78 H Total Protein 8.0 Albumin 3.7 Globulin 4.3 H Albumin/Globulin Ratio 0.9 Urine Color Yellow Urine Clarity Cloudy Urine pH 6.0 Ur Specific [place] 1.020 Urine Protein 30 H Urine Glucose (UA) Normal Urine Ketones 5 H Urine Occult Blood 10 H Urine Nitrite Negative Urine Bilirubin 1 H Urine Urobilinogen 1 H Ur Leukocyte Esterase 500 H Urine RBC 0-5 SEEN Urine WBC 25-50 SEEN Ur Squamous Epith Cells 0-5 SEEN Ur Transition Epith Cell 0-5 SEEN Urine Bacteria 2+ Urine Mucus 1+ Management Discussion w/another healthcare provider: Hospitalist Discharge Plan Triage Chief Complaint: Rash ED Provider: Neelam Whipple Dx/Rx/DC Orders Clinical Impression: Cellulitis, Polyarteritis nodosa, Skin sloughing, Immunosuppressed status Prescriptions: No Action potassium chloride 20 mEq tablet extended release 20 meq PO BID lisinopril 10 mg tablet 10 mg PO BID clonidine HCl 0.1 mg tablet 0.1 mg PO BID rosuvastatin 10 mg tablet 10 mg PO DAILY loperamide 2 mg capsule 2 mg PO Q6H PRN ondansetron 4 mg tablet,disintegrating 4 mg PO Q8H furosemide 40 MG tablet 40 mg PO BID metoprolol succinate 50 MG tablet 50 mg PO QHS leflunomide 20 MG tablet 20 mg PO QHS calcium carbonate 600 MG tablet 600 mg PO DAILY Cholecalciferol (Vitamin D3) [Vitamin D3] 5,000 UNIT capsule 5,000 unit PO DAILY doxepin 50 mg Capsule 50 mg PO QHS Renflexis 100 mg Recon Soln 100 mg IV .Q6WK hydrocodone-acetaminophen 5-325 mg tablet 1 tab PO Q6H 7 Days Qty: 28 0RF hydrocodone-acetaminophen 5-325 mg tablet 1 tab PO Q6H 7 Days Qty: 28 0RF dapsone 25 mg tablet 75 mg PO DAILY Primary Care Provider: Delphine Rod Referrals: Mustapha Gonzales MD [Non-Staff] - Print Language: Kyrgyz Disposition Disposition: Acute Care Hospital [facility]
[2023-11-23] MEDS: DiphenhydrAMINE 50 MG/ML Syringe 25 MG IV ×2 (18:52→23:13)
[2023-11-23] MEDS: Acyclovir 525 MG in Dextrose 5%-Water (250mL Bag) 250 ML 260.5 MG IV (18:54)
[2023-11-23 19:05] LABS: Erythrocyte Sedimentation Rate 33 mm/hr (0-30)
[2023-11-23 19:06] LABS: Absolute Lymphocyte Count 1.68 X10^3/uL (0.83-4.51); Absolute Neutrophil Count 5.5 X10^3/uL (2.0-7.7); Basophil# 0.08 X10^3/uL; Basophil% 0.9 % (0-1); Eosinophil# 0.47 X10^3/uL; Eosinophils% 5.4 % (0-5); Hematocrit 42.6 % (37-47); Hemoglobin 13.4 g/dL (12.0-15.0); Lymphocyte # 1.68 X10^3/ul (0.83-4.51); Lymphocyte % 19.2 % (19-41); Mean Corp Hgb Conc 31.5 g/dL (32-36); Mean Corpuscular Hgb 31.1 pg (27.0-32.0); Mean Corpuscular Volume 98.8 fL (81-99); Mean Platelet Vol. 10.6 fl (6.2-12.0); Monocyte# 0.95 X10^3/uL; Monocyte% 10.9 % (0-10); NRBC Flagged by Analyzer 0.2 % (0-5); Neutrophil # 5.52 X10^3/uL (2.7-7.7); Neutrophil % 63.3 % (47-70); Platelet Count 185 K/mm3 (150-450); RBC Distribution Width CV 15.2 % (11.6-14.6); RBC Distribution Width SD 54.9 fl (35.1-43.9); Red Blood Count 4.31 M/mm3 (4.2-5.4); White Blood Count 8.7 K/mm3 (4.4-11.0)
[2023-11-23 19:10] LABS: International Normalized Ratio 1.2; Prothrombin Time (Protime)PT. 14.8 SECONDS (11.7-14.9)
[2023-11-23 19:11] LABS: Partial Thromboplast Time 25.8 Seconds (24.1-36.2)
[2023-11-23] MEDS: Morphine 4 MG/ML Syringe IV (19:21)
[2023-11-23 19:22] LABS: ALB/GLOB Ratio 0.9 RATIO (0.9-2.4); AST(SGOT) 85 U/L (15-37); Alanine Aminotransfer ALT/SGPT 73 U/L (13-56); Albumin, Serum 3.7 g/dL (3.2-5.0); Alkaline Phosphatase 104 U/L (45-117); Anion Gap 9 (5-15); BUN 14 mg/dL (7-18); BUN/Creat Ratio 17.9 RATIO (10-20); CRP 7.78 mg/L (0.0-3.0); Calcium,Total 9.7 mg/dL (8.5-10.1); Chloride 107 mmol/L (98-107); Creatinine, Serum 0.78 mg/dL (0.55-1.02); EST Glomerular Filtration Rate 81 mL/min (>60); Est Glom Filt Rate - Afr Amer 98 mL/min (>60); Estimated Creatinine Clearance 97.84 ml/min; Globulin 4.3 g/dL (2.2-4.2); Glucose 86 mg/dL (74-106); Potassium 3.1 mmol/L (3.5-5.1); Sodium Level 139 mmol/L (136-145)
[2023-11-23 19:31] LABS: Lactic Acid 2.7 mmol/L (0.4-1.9)
[2023-11-23 19:42] LABS: Color, Urine Yellow (Yellow); Glucose, Dipstick Normal (Normal); Ketone-Dipstick 5 mg/dl (Negative); Leukocyte Esterase-Dipstick 500 /ul (Negative); Nitrite-Dipstick Negative (Negative); Occult Blood-Urine 10 /ul (Negative); Protein-Dipstick 30 mg/dl (Negative); Urine Clarity Cloudy (Clear); Urine Urobilinogen 1 mg/dl (Normal)
[2023-11-23 19:49] LABS: Urine Bilirubin Dipstick 1 mg/dL (Negative)
[2023-11-23 19:50] LABS: Bacteria 2+ /hpf (None Seen); Mucous, Urine 1+ /hpf (<or=2+); Squamous Epithelial Cells - UA 0-5 SEEN /hpf (5-10); White Blood Cells 25-50 SEEN /hpf (0-5)
[2023-11-23 19:51] LABS: Red Blood Cells-Urine 0-5 SEEN /hpf (0-5)
[2023-11-23 19:52] LABS: Transitional Epithelial - Ur 0-5 SEEN /hpf (0-5)
[2023-11-23] MEDS: 0.9% Normal Saline (1000mL) 1,000 ML 999 ML IV (20:47)
[2023-11-23] MEDS: Vancomycin HCl 1,750 MG in 0.9% Normal Saline (500mL Bag) 500 ML 250 MG IV (20:47)
[2023-11-23] MEDS: cloNIDine HCl 0.1 MG Tablet PO (21:15)
[2023-11-23] MEDS: Metoprolol(XL)Succ 50 MG Tablet PO (21:16)
[2023-11-23] MEDS: Lisinopril 10 MG Tablet PO (21:16)
[2023-11-23 22:56] LABS: Reflex Lactate? Y
[2023-11-24] VITALS (9 sets, daily range): BP systolic 95–173; BP diastolic 66–104; PULSE 80–87; RESP 17–22; TEMP 36.4–37.1; O2SAT 94–98; BMI 43.0; BMI 43.7
--- NOTE | 2023-11-24 00:05 | PCM.HP.STD ---
HPI - General General Date of Admission: 11/24/23 Date of Service: 11/24/23 Chief Complaint: Rash, worsening, sloughing skin. HPI Narrative The patient is a 53 y/o F w/ PMHx: BELAL, Morbid obesity, Anxiety and Depression, Asthma, GERD, Hx VTE, Polyarteritis nodosa diagnosed in 2007 primarily initially affecting her left lower leg previously on chronic prednisone, Humira, CellCept eventually transitioning secondary to allergic reactions or intolerance currently on on extensive immunosuppressive regimen including dapsone, leflunomide and Renflexis who presents to the [facility] ED on 11/23/23 with rapidly progressing rash initially reporting 2 fissures on her bilateral toes which she had been treating with lotion no [id number] regimen over the last few days however she developed a rash on her feet as well as her hands that has been quickly moving up her legs noted to be itchy with no fevers or chills but she started to have sloughing of the skin from her feet with no specific odor however she saw her primary care physician on day of presentation who recommended evaluation in the ED with incidentally noted upon arrival a perioral rash as well but no internal mouth lesions or sores with no recent new medications nor any recent antibiotic therapies or fevers or chills. Workup in the ED included T97.9, heart rate 106, BP 187/105, respiratory rate 18, 98% on room air, CBC with WBC 8.7, hemoglobin 13.4, platelet 185 without marked shift, ESR 33, CRP 7.78, unremarkable coags, CMP with potassium 3.1, AST/ALT 85/73, lactic acid 2.7, urinalysis noted to be cloudy, specific remedy 1.020, protein 30, occult blood 10, nitrite negative, leukocyte esterase 500, urine WBCs 25-50 with 2+ urine bacteria, urine culture pending per ED, blood culture pending per ED, wound culture pending per ED, herpes simplex culture and typing requested per ED. In the ED patient administered 1 L normal saline, Zovirax 525 mg IV x 1, IV vancomycin 1750 mg IV x 1, Zosyn 3.375 g IV x 1, morphine 4 mg IV x 2, metoprolol succinate 50 mg p.o. x 1, lisinopril 10 mg p.o. x 1, clonidine 0.1 mg p.o. x 1, diphenhydramine 25 mg IV x 2. Given severity of presentation and concerns for skin sloughing and immunosuppressed significant status although concern for possibly secondary viral infection with eczema herpeticum and lower suspicion for SJS/TENS given no oral internal involvement although she does have rash on her lips decision for patient transferred to tertiary facility with dermatology present therefore patient accepted at [facility] by Dr. Cummings. [facility]LY [facility] Medical History Cutaneous polyarteritis nodosa Wears glasses Anxiety Depression Fatty liver Pulmonary embolism History of sleep apnea Non-smoker History of stress test History of echocardiogram History of bilateral breast reduction surgery Candidal skin infection Non-pressure chronic ulcer of skin of other sites with fat layer exposed Nonhealing surgical wound Alcohol use disorder, mild, in sustained remission Generalized anxiety disorder MDD (major depressive disorder), recurrent severe, without psychosis Abdominal panniculus Family history of breast cancer Intertrigo Shoulder pain Chronic thoracic back pain Chronic neck pain Macromastia Vitamin deficiency Heart murmur High cholesterol Back problem Asthma Seasonal allergies Moderate persistent asthma BELLA (obstructive sleep apnea) Staph infection Plantar fasciitis Hypokalemia Morbid obesity with BMI of 40.0-44.9, adult Insomnia Gastritis Hepatomegaly Elevated liver enzymes Hypertension Polyarteritis nodosa (~2008) Pulmonary hypertension Dyspnea on exertion Edema extremities Home Medications ?Medication ?Instructions ?Recorded ?Last Taken ?Type potassium chloride 20 mEq 20 meq PO BID SUPPLEMENT 05/24/17 Unknown History tablet,extended release lisinopril 10 mg tablet 10 mg PO BID HTN 10/02/17 11/09/22 07:30 History furosemide 40 mg tablet 40 mg PO BID 04/30/19 03/15/20 History leflunomide 20 mg tablet 20 mg PO QHS AUTO-IMMUNE DZ 04/30/19 Unknown History metoprolol succinate 50 mg 50 mg PO QHS HTN 04/30/19 09/21/22 History tablet,extended release 24 hr dapsone 25 mg tablet 75 mg PO DAILY AUTO-IMMUNE DZ 09/04/19 Unknown History Cholecalciferol (Vitamin D3) 5,000 unit PO DAILY SUPPLEMENT 09/08/19 Unknown History [Vitamin D3] calcium carbonate 600 mg PO DAILY SUPPLEMENT 09/08/19 Unknown History doxepin 50 mg capsule 50 mg PO QHS SLEEP 09/08/22 Unknown History infliximab-abda 100 mg intravenous 100 mg IV .Q6WK AUTO-IMMUNE DZ 09/08/22 Unknown History solution (Renflexis) hydrocodone-acetaminophen 5-325mg 1 tab PO Q6H 7 days #28 tabs 09/21/22 Unknown Rx 5mg-325mg hydrocodone-acetaminophen 5-325mg 1 tab PO Q6H 7 days #28 tabs 11/09/22 Unknown Rx 5mg-325mg clonidine HCl 0.1 mg tablet 0.1 mg PO BID 10/18/23 Unknown History loperamide 2 mg capsule 2 mg PO Q6H PRN 10/18/23 Unknown History ondansetron 4 mg disintegrating 4 mg PO Q8H 10/18/23 Unknown History tablet rosuvastatin 10 mg tablet 10 mg PO DAILY 10/18/23 Unknown History Allergy/AdvReac Type Severity Reaction Status Date / Time amoxicillin Allergy Mild Unknown Verified 11/23/23 16:00 mycophenolate mofetil (From Allergy red, Verified 11/23/23 16:00 CellCept) burning, HTN Sulfa (Sulfonamide Allergy hives, Verified 11/23/23 16:00 Antibiotics) swelling Family History Father Sudden cardiac CAD (coronary artery disease) from [place] age 59 Other Asthma Heart disease High cholesterol History of hormone disturbance Hypertension Myocardial infarction Severe allergy Surgical History History of colonoscopy History of bilateral cataract extraction History of laminectomy History of bilateral breast reduction surgery s/pport placement (~09/15/19) H/O right knee surgery L Lower leg surgery balloon sinuplasty History of bilateral tubal ligation History of appendectomy History of endometrial ablation Social History household members: spouse housing: house current occupational status: employed current occupation: [employer] pets and animals: Yes pets and animals: dog(s) and farm animals Smoking Status: Never smoker second hand exposure: No alcohol intake: current alcohol intake frequency: holidays/special occasions only Alcohol type: wine substance use type: does not use additional social history: DOES USE ASPIRIN DOES USE IBUPROFEN ROS ROS Narrative Admission Review of Systems: CONSTITUTIONAL: No weight loss, fever, chills, + weakness or fatigue. HEENT: Eyes: No visual loss, blurred vision, double vision or yellow sclerae. Ears, Nose, Throat: No hearing loss, sneezing, congestion, runny nose or sore throat. SKIN: + Significant pedal skin sloughing, rashes, distal toe erythema as well as rashes to lower extremity, thorax, back and upper extremities including involvement of the palm with cracking and seeping on nearly all folds, perioral irritation. CARDIOVASCULAR: No chest pain, chest pressure or chest discomfort, palpitations, edema, orthopnea, syncopal events. RESPIRATORY: No shortness of breath, cough or sputum, wheezing, hemoptysis. GASTROINTESTINAL: + Anorexia. No nausea, vomiting or diarrhea, abdominal pain, melena, BRBPR. GENITOURINARY: No dysuria, frequency, urgency or retention. NEUROLOGICAL: No headache, dizziness, syncope, paralysis, ataxia, numbness or tingling in the extremities, focal weakness, change in bowel or bladder control, seizure. MUSCULOSKELETAL: + muscle, back pain, joint pain or stiffness. HEMATOLOGIC: No anemia, bleeding or bruising. LYMPHATICS: No enlarged nodes. No history of splenectomy. PSYCHIATRIC: No history of depression or anxiety. ENDOCRINOLOGIC: No reports of sweating, cold or heat intolerance. No polyuria or polydipsia. ALLERGIES: + History of asthma, history of hives. Significant immunosuppressed status. Vital Signs Vital Signs Vital Signs: 11/23/23 16:01 11/23/23 18:00 11/23/23 18:04 Temperature 97.9 F 98.4 F Temperature Source Temporal Oral Pulse Rate 106 H 66 97 Respiratory Rate 18 14 16 Blood Pressure 187/105 H 173/105 H 168/98 H Blood Pressure Mean 132 127 121 Pulse Ox 98 98 98 Oxygen Delivery Method Room Air Room Air 11/23/23 19:00 11/23/23 20:00 11/23/23 21:00 Temperature 98.1 F 98.2 F 98.2 F Temperature Source Temporal Temporal Oral Pulse Rate 96 101 H 104 H Respiratory Rate 18 19 H 26 H Blood Pressure 163/96 H 202/126 H 188/84 H Blood Pressure Mean 118 151 118 Pulse Ox 98 95 93 Oxygen Delivery Method Room Air Room Air 11/23/23 22:00 Temperature Temperature Source Pulse Rate 99 Respiratory Rate 22 H Blood Pressure 200/106 H Blood Pressure Mean 137 Pulse Ox 95 Oxygen Delivery Method Weight Weight: 241 lb Body Mass Index (BMI) 42.7 Physical Exam Narrative Physical Examination: General: Awake, alert, oriented x 3 and cooperative, seated upright in the ED bed, uncomfortable appearing, fatigued Skin: Significant pedal skin sloughing, extensive erythematous macular rashes, distal toe erythema more notable as well as rashes to lower extremity, thorax, back and upper extremities including involvement of the palm as well as more notable distal fingertip erythema with fissures/cracking with significant seeping on nearly all folds including between the toes, fingers and along the lines of her breast with intermittent regions of yellow crusting as well as very scant pustules more so on the upper extremities. HEENT: AT/NC, EOMI, PERRLA, dry MM, perioral cracking and similar rash, no carotid bruits or JVD noted. Lungs: Diminished, greater bases, appropriate effort, no rales, ronchi or wheezing. Heart: Regular rate and rhythm; no gallop, rub audible. Abdomen: Soft, morbidly obese, NTTP, ND, distant normal BS, no H appreciated SM. Extremities: No cyanosis, no clubbing, see skin. Neurological: Patient awake, alert, oriented as noted, cognitive function intact; pupils equally reactive to light and accommodation, cranial nerves gross normal, moving all 4 extremities although limited by discomfort especially if skin is caught, no focal deficits, strength moderately to severely globally decreased secondary to acute complaints. Psychiatric: Affect appears fatigued, uncomfortable appearing, no acute evidence of depressive or anxiety feelings. Results Lab / Micro Data 11/23/23 18:47 11/23/23 18:47 Labs: Laboratory Results - last 24 hr 11/23/23 18:47: WBC 8.7, RBC 4.31, Hgb 13.4, Hct 42.6, MCV 98.8, MCH 31.1, MCHC 31.5 L, RDW Std Deviation 54.9 H, RDW Coeff of Katja 15.2 H, Plt Count 185, MPV 10.6, Immature Gran % (Auto) 0.300, Neut % (Auto) 63.3, Lymph % (Auto) 19.2, Saline % (Auto) 10.9 H, Eos % (Auto) 5.4 H, Baso % (Auto) 0.9, Absolute Neuts (auto) 5.5, Absolute Lymphs (auto) 1.68, Nucleated RBC % 0.2, ESR 33 H, PT 14.8, INR 1.2, APTT 25.8, Sodium 139, Potassium 3.1 L, Chloride 107, Carbon Dioxide 23.0, Anion Gap 9, BUN 14, Creatinine 0.78, Estim Creat Clear Calc 97.84, Est GFR (MDRD) Af Amer 98, Est GFR (MDRD) Non-Af 81, BUN/Creatinine Ratio 17.9, Glucose 86, Lactic Acid 2.7 H*, Calcium 9.7, Total Bilirubin 0.80, AST 85 H, ALT 73 H, Alkaline Phosphatase 104, C-React Prot Ext Range 7.78 H, Total Protein 8.0, Albumin 3.7, Globulin 4.3 H, Albumin/Globulin Ratio 0.9 11/23/23 19:33: Urine Color Yellow, Urine Clarity Cloudy, Urine pH 6.0, Ur Specific [place] 1.020, Urine Protein 30 H, Urine Glucose (UA) Normal, Urine Ketones 5 H, Urine Occult Blood 10 H, Urine Nitrite Negative, Urine Bilirubin 1 H, Urine Urobilinogen 1 H, Ur Leukocyte Esterase 500 H, Urine RBC 0-5 SEEN, Urine WBC 25-50 SEEN, Ur Squamous Epith Cells 0-5 SEEN, Ur Transition Epith Cell 0-5 SEEN, Urine Bacteria 2+, Urine Mucus 1+ Assessment & Plan Assessment/Plan (1) Rash: PLAN: Plan The patient is a 53 y/o F w/ PMHx: BELLA, Morbid obesity, Anxiety and Depression, Asthma, GERD, Hx VTE, Polyarteritis nodosa diagnosed in 2007 primarily initially affecting her left lower leg previously on chronic prednisone, Humira, CellCept eventually transitioning secondary to allergic reactions or intolerance currently on on extensive immunosuppressive regimen including dapsone, leflunomide and Renflexis who presents to the [facility] ED on 11/23/23 with rapidly progressing rash initially reporting 2 fissures on her bilateral toes which she had been treating with lotion no [id number] regimen over the last few days however she developed a rash on her feet as well as her hands that has been quickly moving up her legs noted to be itchy with no fevers or chills but she started to have sloughing of the skin from her feet with no specific odor however she saw her primary care physician on day of presentation who recommended evaluation in the ED with incidentally noted upon arrival a perioral rash as well but no internal mouth lesions or sores with no recent new medications nor any recent antibiotic therapies or fevers or chills. #1. Bilateral lower extremity, hand, perioral rash of unclear etiology, possibly viral with superimposed bacterial infection, low suspicion SJS/TENS: Given patient is still awaiting tertiary bed transfer will temporarily admit to medical surgical floor, will maintain on broad-spectrum antibiotic therapy with IV vancomycin and IV Zosyn in addition to IV acyclovir, wound Cx pending per ED, will add MRSA wound Cx also, will judiciously hydrate, continue Benadryl as needed for itching as well as pain regimen for discomfort, wound RN consulted. If patient remains beyond this am would benefit from consideration Plastic consultation for Bx and evaluation. Difficult as appearance of superimposed infection potentially but also may require steroids. Also, unfortunately infectious disease is not present over the weekends but if patient does not achieve a bed over the weekend then low threshold to involve infectious disease on Sunday. #2. Hypokalemia: Admission K+ 3.1, magnesium level requested, supplementation given, repeat level in AM. #3. Possible Acute Complicated Urinary Tract Infection: UA upon ED evaluation remarkable, pending UCx, will continue to hydrate as noted, monitor I/Os, currently maintained on broad-spectrum antibiotic therapy given number 1 with IV vancomycin and IV Zosyn, await urine culture results. #4. Polyarteritis nodosa: Patient diagnosed in 2007 primarily initially affecting her left lower leg previously on chronic prednisone, Humira, CellCept eventually transitioning secondary to allergic reactions or intolerance currently on on extensive immunosuppressive regimen including dapsone, leflunomide and Renflexis with chronically immunosuppressed status. Given severity of presentation will temporally hold immunosuppressive therapy, pending transfer to tertiary facility as noted, currently maintained on very broad-spectrum antibiotic therapy and antiviral regimen as noted. #5. Hypertension: Continue home regimen including lisinopril, metoprolol, Lasix, clonidine, PRN hydralazine. #6. Hyperlipidemia: We will continue patient on statin therapy. #7. Morbid Obesity: Weight loss and lifestyle changes encouraged. #8. Hx VTE: Previously anticoagulated, continue chemoprophylaxis cautiously given current presentation. #9. Chronic asthma: Not on chronic regimen per current list, will have as needed albuterol, encourage head of bed and I-S. #10. Chronic mild transaminitis with fatty liver disease: Admission CMP with AST/ALT 85/73, alk phos 104, total bilirubin 0.8 with no specific comparison CMP noted previously, will trend CMP to be cautious. #11. BELLA: Previously used BIPAP q HS, notes since weight loss no longer needs. #12. DVT prophylaxis: Given presentation unfortunately patient will be unable to tolerate SCDs and given unclear process with sloughing of skin off preference to defer any chemoprophylaxis also at this time given higher risk. #13. CODE status: Patient HCPOA and living will are not in place but she notes her mother would be her medical decision maker if necessary. Discussed CODE status at length including difference between FULL code, DNR-CCA and DNR-CC status. Following discussions about the differences in these status, requested Full Code status. Advanced Care Planning Face to Face Time: 16 minutes. Charges/Coding Visit Charges Inpatient E&M: 31008 Init Hosp L3 Procedures Hospitalists Procedures: 05333 Advncd Care Plan 30 Min
--- NOTE | 2023-11-24 00:13 | ED.RN ---
I CALLED [facility] AT 0010 TO GET AN UPDATE ON THE BED ASSIGNMENT, SAMUEL AT THE TRANSFER LINE SAID THIS PT. IS AT THE TOP OF THE LIST, BUT LIKELY NOT GETTING A BED UNTIL MORNING.
[2023-11-24 00:48] LABS: Lactic Acid 1.7 mmol/L (0.4-1.9)
[2023-11-24] MEDS: Ondansetron 4 MG/2 ML Vial IV (01:02)
[2023-11-24] MEDS: Morphine 4 MG/ML Syringe IV ×3 (01:03→15:42)
[2023-11-24 01:24] LABS: Magnesium 1.7 mg/dL (1.6-2.6)
[2023-11-24] MEDS: 0.9% Normal Saline (1000mL) 1,000 ML 100 ML IV (02:46)
--- NOTE | 2023-11-24 02:56 | PCM.RX.CS ---
Consult Antibiotic Management Pharmacy has been consulted to manage selected antibiotic: Vancomycin Type of Intervention Type of Consult: New start Labs Labs: Sodium 139 mmol/L (136-145) 11/23/23 18:47 Potassium 3.1 mmol/L (3.5-5.1) L 11/23/23 18:47 Chloride 107 mmol/L (98-107) 11/23/23 18:47 Carbon Dioxide 23.0 mmol/L (21.0-32.0) 11/23/23 18:47 Anion Gap 9 (5-15) 11/23/23 18:47 BUN 14 mg/dL (7-18) 11/23/23 18:47 Creatinine 0.78 mg/dL (0.55-1.02) 11/23/23 18:47 Est GFR (MDRD) Af Amer 98 mL/min (>60) 11/23/23 18:47 Est GFR (MDRD) Non-Af 81 mL/min (>60) 11/23/23 18:47 BUN/Creatinine Ratio 17.9 RATIO (10-20) 11/23/23 18:47 Glucose 86 mg/dL (74-106) 11/23/23 18:47 Dosing Weight Weight used for dosin kg Estimated Creatinine Clearance Estimated Creatinine Clearance: 97.84 Goal Trough Goal Trough: 15-20 mcg/mL Pharmacy Plan for Drug Dosing Pharmacy Plan for Drug Dosing: Pharmacy Service will continue to monitor and adjust dosing as required. 1750MG IN ER. 1250MG Q8H TROUGH PRIOR TO 4TH DOSE Follow-Up Labs Follow-Up Labs: Trough: Vancomycin Date/Time Labs Ordered Labs to be done on [date and time ordered]: 11/23 @ 2030
[2023-11-24] MEDS: Potassium Chloride Oral Tablet 20 MEQ 40 MEQ PO ×2 (03:11→08:15)
[2023-11-24] MEDS: hydrOXYzine PAM 25 MG Capsule PO ×2 (03:52→10:42)
[2023-11-24] MEDS: DiphenhydrAMINE 50 MG/ML Syringe 25 MG IV ×2 (05:19→18:09)
[2023-11-24] MEDS: Piperacil/Tazobactam 3.375 GM in 0.9% Normal Saline (50mL MB+) 50 ML IV ×3 (05:20→22:15)
[2023-11-24] MEDS: 0.9% Normal Saline (250mL Bag) 250 ML 15 ML IV (05:20)
[2023-11-24] MEDS: Vancomycin HCl 1,250 MG in 0.9% Normal Saline (250mL Bag) 250 ML 167 MG IV ×2 (05:20→13:52)
[2023-11-24 07:26] LABS: Absolute Lymphocyte Count 1.52 X10^3/uL (0.83-4.51); Absolute Neutrophil Count 3.1 X10^3/uL (2.0-7.7); Basophil# 0.04 X10^3/uL; Basophil% 0.7 % (0-1); Eosinophil# 0.51 X10^3/uL; Eosinophils% 8.5 % (0-5); Hematocrit 35.5 % (37-47); Hemoglobin 11.1 g/dL (12.0-15.0); Lymphocyte # 1.52 X10^3/ul (0.83-4.51); Lymphocyte % 25.2 % (19-41); Mean Corp Hgb Conc 31.3 g/dL (32-36); Mean Corpuscular Hgb 31.3 pg (27.0-32.0); Mean Platelet Vol. 10.8 fl (6.2-12.0); Monocyte# 0.85 X10^3/uL; Monocyte% 14.1 % (0-10); NRBC Flagged by Analyzer 0.5 % (0-5); Neutrophil # 3.07 X10^3/uL (2.7-7.7); Platelet Count 156 K/mm3 (150-450); RBC Distribution Width CV 15.4 % (11.6-14.6); RBC Distribution Width SD 56.4 fl (35.1-43.9); Red Blood Count 3.55 M/mm3 (4.2-5.4)
[2023-11-24 07:48] LABS: ALB/GLOB Ratio 0.9 RATIO (0.9-2.4); AST(SGOT) 51 U/L (15-37); Alanine Aminotransfer ALT/SGPT 51 U/L (13-56); Albumin, Serum 3.2 g/dL (3.2-5.0); Alkaline Phosphatase 87 U/L (45-117); Anion Gap 7 (5-15); BUN 15 mg/dL (7-18); BUN/Creat Ratio 18.4 RATIO (10-20); Chloride 108 mmol/L (98-107); Creatinine, Serum 0.82 mg/dL (0.55-1.02); EST Glomerular Filtration Rate 78 mL/min (>60); Est Glom Filt Rate - Afr Amer 94 mL/min (>60); Estimated Creatinine Clearance 93.41 ml/min; Globulin 3.4 g/dL (2.2-4.2); Glucose 122 mg/dL (74-106); Potassium 3.4 mmol/L (3.5-5.1); Protein, Total 6.6 g/dL (6.4-8.2); Sodium Level 137 mmol/L (136-145)
[2023-11-24] MEDS: Acyclovir 525 MG in Dextrose 5%-Water (250mL Bag) 250 ML 260.5 MG IV ×2 (08:11→15:39)
[2023-11-24] MEDS: Lisinopril 10 MG Tablet PO ×2 (08:14→22:16)
[2023-11-24] MEDS: cloNIDine HCl 0.1 MG Tablet PO ×2 (08:14→22:16)
[2023-11-24] MEDS: Potassium Chloride Oral Tablet 20 MEQ PO ×2 (08:14→22:16)
[2023-11-24] MEDS: Furosemide 40 MG Tablet PO ×2 (08:14→18:09)
[2023-11-24] MEDS: oxyCODONE 5 MG Tablet PO ×2 (08:40→19:35)
--- NOTE | 2023-11-24 09:20 | CASEMGMT ---
JAROCHO DIAZ Note: Insurance review for hospitals In-network with?[employer] Insurance if transfer is recommended is as follows: [facility], [place], [facility], [facility], and [facility]) Cuca HENDRICKS RN CM
[2023-11-24] MEDS: 0.9 % NaCl (Sterile) Posiflush 10 mL IV (10:19)
[2023-11-24] MEDS: proCHLORPERazine 10 MG/2 ML Vial 5 MG IV (10:19)
[2023-11-24] MEDS: Juven (unflavored) Packet 1 PACKET PO (15:39)
--- NOTE | 2023-11-24 16:05 | PCM.HOSP.N ---
Hospitalist Note Patient is a 53-year-old female with a history of polyarteritis nodosa on immunosuppression therapy who presented to the emergency department at [facility] on the early a.m. of 11/23/2023 with worsening rash. She indicated all summer she has been dealing with fissures on her toes but she has been trying to stay ahead of along with her primary doctor. She indicated she had been doing okay but within the last week or so she has had a spreading rash on both of her hands predominantly at her fingernails which has now spread onto her palms, upper legs now on her trunk and slowly spreading to her face in the last 24 to 48 hours. Her skin is sloughing and very painful. It is difficult for her to walk. She has no intra oral lesions but has perioral lesions. She been on no new medications. Denies any fever or chills. Workup in the emergency department included vital signs to show a temperature of 97.9, heart rate 106, blood pressure 187/105, respiratory rate of 18 oxygen saturations were 90% on room air. CBC was overall unremarkable. ESR was 33, CRP was 7.7. Coags were normal. Chemistry panel showed mild hypokalemia with potassium of 3.1 which was replaced. Her lactic acid initially was 2.7 but resolved quickly on repeat and IV fluids as she did appear to be dehydrated. Urinalysis showed a specific gravity of 1.02. She had no urinary symptoms but did have some white cells and bacteria. Urine culture was ordered and patient was placed on antibiotics for the concern of cellulitis related to her rash. Cultures were obtained and are pending. She remains on vancomycin and Zosyn at this time. Given the severity of her presentation, previous history and the fact that she is immunosuppressed at baseline tertiary center transfer was recommended. The patient follows with rheumatology at [facility] and the case was discussed by the emergency department here with dermatology at [facility] and she was accepted by Dr. Cummings. Unfortunately, no bed availability is present at this time and we are awaiting bed. [facility] early this morning and they indicated she was at the top of the wait list and they felt she would have a bed later today however she is still not obtained in bed. She is markedly uncomfortable and has as needed pain medication as well as antibiotics as noted above. We have also added steroids 60 mg IV twice daily. Will transfer to [facility] [place] once bed is available. We were trying to hold off on steroids so she can be seen by dermatology at tertiary center without the interference of steroids however she was very miserable and we were hoping that steroids would help her symptoms.
[2023-11-24] MEDS: MethylPREDNISolone 125 MG/2 ML Vial 60 MG IV ×2 (18:09→22:16)
[2023-11-24] MEDS: Vancomycin Trough/Random Due 1 LAB MC (19:38)
[2023-11-24 20:55] LABS: Vancomycin, Trough Level 35.8 ug/mL (5.0-15.0)
--- NOTE | 2023-11-24 21:58 | PCM.RX.CS ---
Consult Antibiotic Management Pharmacy has been consulted to manage selected antibiotic: Vancomycin Type of Intervention Type of Consult: Follow-up Suspected Infection Suspected Infection: Skin/Soft tissue Labs Labs: Sodium 137 mmol/L (136-145) 11/24/23 06:48 Potassium 3.4 mmol/L (3.5-5.1) L 11/24/23 06:48 Chloride 108 mmol/L (98-107) H 11/24/23 06:48 Carbon Dioxide 22.0 mmol/L (21.0-32.0) 11/24/23 06:48 Anion Gap 7 (5-15) 11/24/23 06:48 BUN 15 mg/dL (7-18) 11/24/23 06:48 Creatinine 0.82 mg/dL (0.55-1.02) 11/24/23 06:48 Est GFR (MDRD) Af Amer 94 mL/min (>60) 11/24/23 06:48 Est GFR (MDRD) Non-Af 78 mL/min (>60) 11/24/23 06:48 BUN/Creatinine Ratio 18.4 RATIO (10-20) 11/24/23 06:48 Glucose 122 mg/dL (74-106) H 11/24/23 06:48 Vancomycin Trough 35.8 ug/mL (5.0-15.0) H 11/24/23 20:27 Microbiology Microbiology: Microbiology 11/23/23 18:35 Skin - Plantar Gram Stain - Final 11/23/23 18:35 Skin - Plantar Wound Culture - Preliminary Gram negative angel Staphylococcus aureus 11/23/23 19:33 Urine, Clean Catch Urine Culture - Preliminary Mixed Gram Pos & Gram Neg Org 11/24/23 02:35 Wound - Right Foot Skin and Soft Tissue MRSA/MSSA (PCR - Final Staphylococcus aureus Goal Trough Goal Trough: 15-20 mcg/mL Pharmacy Plan for Drug Dosing Pharmacy Plan for Drug Dosing: VANCOMYCIN LEVEL RECEIVED Current Vancomycin Dose: 1250mg q8h (at 05,13,21) Number of Doses Received: x1 1750mg dose, x2 1250mg doses Vancomycin Level: 35.8 (level drawn at 2026 on 11/23) Hours Since Last Dose: 6.5 hours since last 1250mg dose on 11/23 at 1352 Renal Function: SrCr 0.82 Renal Function Trend: SrCr stable Lab/Micro: Vancomycin Plan/Comments: resulted trough of 35.8 is above the ordered goal trough of 15-20. recommend holding further doses of vancomycin and checking a random level on 11/25/23 Pending Level: 11/25/23 at 1000 Pharmacy Service will continue to monitor and adjust dosing as required. Follow-Up Labs Follow-Up Labs: Trough: Vancomycin (11/25/23 at 1000 (random level))
[2023-11-24] MEDS: Acyclovir 525 MG in Dextrose 5%-Water (250mL Bag) 250 ML 260 MG IV (22:15)
[2023-11-24] MEDS: Metoprolol(XL)Succ 50 MG Tablet PO (22:16)
[2023-11-24] MEDS: DOXEPIN HCL 50 MG CAPSULE PO (22:16)
[2023-11-24] MEDS: Atorvastatin Calcium 20 MG Tablet PO (22:16)
[2023-11-25 03:00] VITALS: BP 113/54; PULSE 77; RESP 18; TEMP 36.6; O2SAT 95
[2023-11-25] MEDS: Morphine 4 MG/ML Syringe IV ×2 (03:15→20:08)
[2023-11-25] MEDS: DiphenhydrAMINE 50 MG/ML Syringe 25 MG IV ×2 (03:25→14:26)
[2023-11-25] MEDS: 0.9% Saline Lock 10 ML Syringe IV (03:25)
[2023-11-25 04:49] VITALS: BMI 43.3
[2023-11-25] MEDS: Piperacil/Tazobactam 3.375 GM in 0.9% Normal Saline (50mL MB+) 50 ML IV ×2 (05:38→14:26)
[2023-11-25] MEDS: Acyclovir 525 MG in Dextrose 5%-Water (250mL Bag) 250 ML 260 MG IV ×2 (05:40→14:16)
[2023-11-25 07:27] LABS: Absolute Lymphocyte Count 0.91 X10^3/uL (0.83-4.51); Absolute Neutrophil Count 5.5 X10^3/uL (2.0-7.7); Basophil# 0.03 X10^3/uL; Basophil% 0.5 % (0-1); Eosinophil# 0.01 X10^3/uL; Eosinophils% 0.2 % (0-5); Hematocrit 34.6 % (37-47); Hemoglobin 10.7 g/dL (12.0-15.0); Lymphocyte # 0.91 X10^3/ul (0.83-4.51); Lymphocyte % 13.9 % (19-41); Mean Corp Hgb Conc 30.9 g/dL (32-36); Mean Corpuscular Hgb 31.2 pg (27.0-32.0); Mean Corpuscular Volume 100.9 fL (81-99); Mean Platelet Vol. 11.3 fl (6.2-12.0); Monocyte# 0.08 X10^3/uL; Monocyte% 1.2 % (0-10); NRBC Flagged by Analyzer 0.3 % (0-5); Neutrophil # 5.51 X10^3/uL (2.7-7.7); Neutrophil % 83.9 % (47-70); Platelet Count 147 K/mm3 (150-450); RBC Distribution Width SD 55.5 fl (35.1-43.9); Red Blood Count 3.43 M/mm3 (4.2-5.4); White Blood Count 6.6 K/mm3 (4.4-11.0)
[2023-11-25 08:00] VITALS: O2SAT 94
[2023-11-25 08:23] LABS: ALB/GLOB Ratio 0.8 RATIO (0.9-2.4); AST(SGOT) 351 U/L (15-37); Alanine Aminotransfer ALT/SGPT 155 U/L (13-56); Albumin, Serum 3.1 g/dL (3.2-5.0); Alkaline Phosphatase 91 U/L (45-117); Anion Gap 7 (5-15); BUN 22 mg/dL (7-18); BUN/Creat Ratio 15.8 RATIO (10-20); Calcium,Total 8.6 mg/dL (8.5-10.1); Chloride 101 mmol/L (98-107); Creatinine, Serum 1.39 mg/dL (0.55-1.02); EST Glomerular Filtration Rate 42 mL/min (>60); Est Glom Filt Rate - Afr Amer 51 mL/min (>60); Estimated Creatinine Clearance 55.37 ml/min; Globulin 3.7 g/dL (2.2-4.2); Glucose 264 mg/dL (74-106); Magnesium 1.5 mg/dL (1.6-2.6); Phosphorus 1.8 mg/dL (2.5-4.9); Potassium 3.8 mmol/L (3.5-5.1); Protein, Total 6.8 g/dL (6.4-8.2); Sodium Level 131 mmol/L (136-145)
[2023-11-25 09:00] VITALS: BP 111/71; PULSE 79; RESP 18; TEMP 36.7; O2SAT 96
[2023-11-25] MEDS: cloNIDine HCl 0.1 MG Tablet PO ×2 (09:16→20:08)
[2023-11-25] MEDS: 0.9% Normal Saline (1000mL) 1,000 ML 100 ML IV ×2 (09:16→20:03)
[2023-11-25] MEDS: MethylPREDNISolone 125 MG/2 ML Vial 60 MG IV ×2 (09:17→20:07)
[2023-11-25] MEDS: Potassium Chloride Oral Tablet 20 MEQ PO ×2 (09:17→20:07)
[2023-11-25] MEDS: Lisinopril 10 MG Tablet PO ×2 (09:17→20:07)
[2023-11-25 11:00] LABS: Vancomycin, Random Level 22.4 ug/mL (0.0-15.0)
--- NOTE | 2023-11-25 11:40 | PCM.RX.CS ---
Consult Antibiotic Management Pharmacy has been consulted to manage selected antibiotic: Vancomycin Type of Intervention Type of Consult: Follow-up Labs Labs: Sodium 131 mmol/L (136-145) L 11/25/23 06:40 Potassium 3.8 mmol/L (3.5-5.1) 11/25/23 06:40 Chloride 101 mmol/L (98-107) 11/25/23 06:40 Carbon Dioxide 23.0 mmol/L (21.0-32.0) 11/25/23 06:40 Anion Gap 7 (5-15) 11/25/23 06:40 BUN 22 mg/dL (7-18) H 11/25/23 06:40 Creatinine 1.39 mg/dL (0.55-1.02) H 11/25/23 06:40 Est GFR (MDRD) Af Amer 51 mL/min (>60) L 11/25/23 06:40 Est GFR (MDRD) Non-Af 42 mL/min (>60) L 11/25/23 06:40 BUN/Creatinine Ratio 15.8 RATIO (10-20) 11/25/23 06:40 Glucose 264 mg/dL (74-106) H 11/25/23 06:40 Vancomycin Trough 35.8 ug/mL (5.0-15.0) H 11/24/23 20:27 Random Vancomycin 22.4 ug/mL (0.0-15.0) H 11/25/23 10:20 Microbiology Microbiology: Microbiology 11/23/23 19:33 Urine, Clean Catch Urine Culture - Preliminary Streptococcus agalactiae (B) Beta streptococcus 11/23/23 18:35 Skin - Plantar Gram Stain - Final 11/23/23 18:35 Skin - Plantar Wound Culture - Preliminary Proteus mirabilis Staphylococcus aureus Beta streptococcus 11/24/23 02:35 Wound - Right Foot Skin and Soft Tissue MRSA/MSSA (PCR - Final Staphylococcus aureus Dosing Weight Weight used for dosin.9 kg Estimated Creatinine Clearance Estimated Creatinine Clearance: 55ML/MIN Goal Trough Goal Trough: 15-20 mcg/mL Pharmacy Plan for Drug Dosing Pharmacy Plan for Drug Dosing: The vanc random level drawn at 10:20 was 22.4. This is still above goal so will continue to hold dosing for now. Repeat a random in 8 hours. Can restart dosing at that time if level <20. Of note, the patient's SCr sixto to 1.39 today from 0.82 yesterday. Pharmacy Service will continue to monitor and adjust dosing as required. Follow-Up Labs Follow-Up Labs: Trough: Vancomycin (random) Date/Time Labs Ordered Labs to be done on [date and time ordered]: 11/25/23 18:30
[2023-11-25] MEDS: Juven (unflavored) Packet 1 PACKET PO ×2 (12:34→17:16)
[2023-11-25] MEDS: Insulin Glargine-YFGN 100 UNIT/ML Pen 10 UNIT SC (12:34)
[2023-11-25] MEDS: Insulin Lispro 100 UNIT/ML INSULN.PEN SC ×3 (12:44→20:06)
[2023-11-25 12:58] LABS: Bedside Glucose 283 mg/dL (74-106)
--- NOTE | 2023-11-25 13:45 | DS.PCM_ITS ---
Providers Date of Admission: 11/24/23 Primary Care Physician: Dr. Delphine Rod MD Consultations 11/24/23 01:46 Consult: Onc/Wound/quality assurance monitor chassis Routine Comment: Reason for Consult:: Rash w/ now appearance superimposed infection Reason For Visit: RASH WITH SUPERIMPOSED BACTERIAL INFECTION Diagnosis Discharge Diagnosis (1) Rash: Status: Acute Code(s): R21 - Rash and other nonspecific skin eruption Medications at Discharge Home Medications potassium chloride 20 mEq tablet,extended release 20 meq PO BID SUPPLEMENT 05/24/17 lisinopril 10 mg tablet 10 mg PO BID HTN 10/02/17 furosemide 40 mg tablet 40 mg PO BID 04/30/19 leflunomide 20 mg tablet 20 mg PO QHS AUTO-IMMUNE DZ 04/30/19 metoprolol succinate 50 mg tablet,extended release 24 hr 50 mg PO QHS HTN 04/30/19 dapsone 25 mg tablet 75 mg PO DAILY AUTO-IMMUNE DZ 09/04/19 Cholecalciferol (Vitamin D3) [Vitamin D3] 5,000 unit PO DAILY SUPPLEMENT 09/08/19 calcium carbonate 600 mg PO DAILY SUPPLEMENT 09/08/19 doxepin 50 mg capsule 50 mg PO QHS SLEEP 09/08/22 infliximab-abda 100 mg intravenous solution (Renflexis) 100 mg IV .Q6WK AUTO- IMMUNE DZ 09/08/22 clonidine HCl 0.1 mg tablet 0.1 mg PO BID 10/18/23 loperamide 2 mg capsule 2 mg PO Q6H PRN loose stool 10/18/23 ondansetron 4 mg disintegrating tablet 4 mg PO Q8H 10/18/23 rosuvastatin 10 mg tablet 10 mg PO DAILY 10/18/23 Hospital Course Operations None Procedures None Summary of Care Provided Minutes Spent on Discharge: 37 Hospital Course: Patient is a 53-year-old female with a 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 of 11/23/2023 with worsening rash. She indicated all summer she has been dealing with fissures on her toes but she has been trying to stay ahead of along with her primary doctor. She indicated she had been doing okay but within the last week or so she has had a spreading rash on both of her hands predominantly at her fingernails which has now spread onto her palms, upper legs now on her trunk and slowly spreading to her face in the last 24 to 48 hours. Her skin is sloughing and very painful. It is difficult for her to walk. She has no intra oral lesions but has perioral lesions. She been on no new medications. Denies any fever or chills. Workup in the emergency department included vital signs to show a temperature of 97.9, heart rate 106, blood pressure 187/105, respiratory rate of 18 oxygen saturations were 90% on room air. CBC was overall unremarkable. ESR was 33, CRP was 7.7. Coags were normal. Chemistry panel showed mild hypokalemia with potassium of 3.1 which was replaced. Her lactic acid initially was 2.7 but resolved quickly on repeat and IV fluids as she did appear to be dehydrated. Urinalysis showed a specific gravity of 1.02. She had no urinary symptoms but did have some white cells and bacteria. Urine culture was ordered and patient was placed on antibiotics for the concern of cellulitis related to her rash. Cultures were obtained and are pending. She remains on vancomycin and Zosyn at this time. Given the severity of her presentation, previous history and the fact that she is immunosuppressed at [facility] transfer was recommended. The patient follows with rheumatology at [facility] and the case was discussed by the emergency department here with dermatology at [facility] and she was accepted by Dr. Cummings. Unfortunately, no bed was available at the time show she required admission to the hospital she is markedly uncomfortable and has as needed pain medication as well as antibiotics as noted above. We have also added steroids 60 mg IV twice daily. Will transfer to [facility] once bed is available. We were trying to hold off on steroids so she can be seen by dermatology at [facility] without the interference of steroids however she was very miserable with regards to her symptoms so we did start 60 mg twice daily when we did not obtain a bed on 11/24/2023. She did report improvement with this on the a.m. of 11/25/2023. Her wounds are severe however and will need ongoing care unit after discharge from the hospital and we did discuss this with her. Cultures were obtained and are growing several different organisms including Proteus, Staph aureus, beta Streptococcus, and group B strep. The Proteus is pansensitive and the Staph aureus has not yet been differentiated between MRSA and MSSA. Blood cultures were pending at the time of discharge. During her hospital course here she was maintained on vancomycin and Zosyn. A bed became available on 11/25/2023 and she was transferred to [facility] at that time. Discharge diagnoses: Severe cellulitis with wound infection Diffuse rash Hypokalemia-resolved History of polyarteritis nodosa Hypertension Hyperlipidemia History of DVT Asthma History of hepatic steatosis BELLA Morbid obesity Physical Exam Narrative General: Awake, alert, oriented x 3 and cooperative, sitting upright in bed eating breakfast and watching television, appears much more comfortable than yesterday, does appear fatigued, nursing at bedside Skin: Significant pedal skin sloughing, fissures, and dry skin, extensive erythematous macular rashes, distal toe erythema more notable as well as rashes to lower extremity, thorax, back and upper extremities including involvement of the palm as well as more notable distal fingertip erythema with fissures/cracking with significant seeping on nearly all folds including between the toes, fingers and along the lines of her breast with intermittent regions of yellow crusting as well as very scant pustules more so on the upper extremities. HEENT: AT/NC, EOMI, PERRLA, dry MM, perioral cracking and similar rash, no carotid bruits or JVD noted. Lungs: Diminished, greater bases, appropriate effort, no rales, rhonchi or wheezing. Heart: Regular rate and rhythm; no gallop, no rub, no murmur, no clicks Abdomen: Soft, nontender, nondistended, bowel sounds were normal Extremities: No cyanosis, no clubbing, see skin, cap refill is 2+ Neurological: Patient awake, alert, oriented as noted, cognitive function intact; pupils equally reactive to light and accommodation, cranial nerves gross normal, moving all 4 extremities although limited by discomfort especially if skin is caught, no focal deficits, strength moderately to severely globally decreased secondary to acute complaints. Psychiatric: Pleasant, interacts appropriately, appears much improved since yesterday, eye contact is good and patient interacts appropriately Weight / BMI Weight Weight: 110.9 kg Body Mass Index (BMI) 43.3 ABG / Lab / Microbiology Data 11/25/23 06:40 11/25/23 06:40 Laboratory: Laboratory Results - last 24 hr 11/24/23 20:27: Vancomycin Trough 35.8 H 11/25/23 06:40: WBC 6.6, RBC 3.43 L, Hgb 10.7 L, Hct 34.6 L, MCV 100.9 H, MCH 31.2, MCHC 30.9 L, RDW Std Deviation 55.5 H, RDW Coeff of Katja 15.0 H, Plt Count 147 L, MPV 11.3, Immature Gran % (Auto) 0.300, Neut % (Auto) 83.9 H, Lymph % (Auto) 13.9 L, Bee % (Auto) 1.2, Eos % (Auto) 0.2, Baso % (Auto) 0.5, Absolute Neuts (auto) 5.5, Absolute Lymphs (auto) 0.91, Nucleated RBC % 0.3, Sodium 131 L , Potassium 3.8, Chloride 101, Carbon Dioxide 23.0, Anion Gap 7, BUN 22 H, C reatinine 1.39 H, Estim Creat Clear Calc 55.37, Est GFR (MDRD) Af Amer 51 L, Est GFR (MDRD) Non-Af 42 L, BUN/Creatinine Ratio 15.8, Glucose 264 H, Calcium 8.6, P hosphorus 1.8 L, Magnesium 1.5 L, Total Bilirubin 1.20 H, AST 351 H, ALT 155 H, Alkaline Phosphatase 91, Total Protein 6.8, Albumin 3.1 L, Globulin 3.7, A lbumin/Globulin Ratio 0.8 L 11/25/23 10:20: Random Vancomycin 22.4 H 11/25/23 12:33: POC Glucose 283 H Microbiology: Microbiology 11/23/23 19:33 Urine, Clean Catch Urine Culture - Preliminary Streptococcus agalactiae (B) Beta streptococcus 11/23/23 18:35 Skin - Plantar Gram Stain - Final 11/23/23 18:35 Skin - Plantar Wound Culture - Preliminary Proteus mirabilis Staphylococcus aureus Beta streptococcus 11/24/23 02:35 Wound - Right Foot Skin and Soft Tissue MRSA/MSSA (PCR - Final Staphylococcus aureus Meaningful Use Info Meaningful Use Meaningful Use Diagnoses (Choose all that apply): None applicable Ischemic Stroke Statin Dosing Therapy Reference: STATIN DOSE THERAPY REFERENCE: * Patients > 75 years receive moderate or high dose statin therapy. * Patients 75 years or YOUNGER should receive HIGH intensity statin dose unless contraindicated. You will be required to document reason for non-treatment if statin daily dose does not meet guidelines. HIGH DOSE STATIN THERAPY DAILY Atorvastatin > than or = to 40 mg Rosuvastatin > than or = to 20 mg Amlodipine + Atorvastatin > than or = to 2.5/40 mg Ezetimibe + Simvastatin 10/80 mg Simvastatin 80mg Discharge Plan Admission Admit Date/Time: 11/24/23 00:09 Primary Reason for Your Visit: Diffuse rash Attending Provider: Joanne Jeffers Primary Care Provider: Delphine Rod Consulting Providers: Kristine Mg Discharge Orders/Prescriptions Prescriptions: No Action potassium chloride 20 mEq tablet extended release 20 meq PO BID lisinopril 10 mg tablet 10 mg PO BID clonidine HCl 0.1 mg tablet 0.1 mg PO BID rosuvastatin 10 mg tablet 10 mg PO DAILY loperamide 2 mg capsule 2 mg PO Q6H PRN (Reason: loose stool) ondansetron 4 mg tablet,disintegrating 4 mg PO Q8H furosemide 40 MG tablet 40 mg PO BID metoprolol succinate 50 MG tablet 50 mg PO QHS leflunomide 20 MG tablet 20 mg PO QHS calcium carbonate 600 MG tablet 600 mg PO DAILY Cholecalciferol (Vitamin D3) [Vitamin D3] 5,000 UNIT capsule 5,000 unit PO DAILY doxepin 50 mg Capsule 50 mg PO QHS Renflexis 100 mg Recon Soln 100 mg IV .Q6WK dapsone 25 mg tablet 75 mg PO DAILY Referrals / Follow Up: Delphine Rod MD [Primary Care Provider] - Mustapha Gonzales MD [Non-Staff] - Disposition Disposition (needs filled in before D/C Order can be placed): Acute Care Hospital Charges/Coding Visit Charges Inpatient E&M: 14821 Disch Hosp >30min
[2023-11-25 17:26] LABS: Bedside Glucose 169 mg/dL (74-106)
[2023-11-25 19:09] LABS: Vancomycin, Random Level 15.9 ug/mL (0.0-15.0)
[2023-11-25 19:59] VITALS: BP 145/84; PULSE 87; RESP 16; TEMP 36.7; O2SAT 97
[2023-11-25] MEDS: DOXEPIN HCL 50 MG CAPSULE PO (20:07)
[2023-11-25 20:08] VITALS: BP 145/84; PULSE 87
[2023-11-25] MEDS: Metoprolol(XL)Succ 50 MG Tablet PO (20:08)
[2023-11-25] MEDS: hydrOXYzine PAM 25 MG Capsule PO (20:08)
[2023-11-25] MEDS: Atorvastatin Calcium 20 MG Tablet PO (20:08)
--- NOTE | 2023-11-25 20:09 | PCM.RX.CS ---
Consult Antibiotic Management Pharmacy has been consulted to manage selected antibiotic: Vancomycin Type of Intervention Type of Consult: Follow-up Suspected Infection Suspected Infection: Skin/Soft tissue Labs Labs: Sodium 131 mmol/L (136-145) L 11/25/23 06:40 Potassium 3.8 mmol/L (3.5-5.1) 11/25/23 06:40 Chloride 101 mmol/L (98-107) 11/25/23 06:40 Carbon Dioxide 23.0 mmol/L (21.0-32.0) 11/25/23 06:40 Anion Gap 7 (5-15) 11/25/23 06:40 BUN 22 mg/dL (7-18) H 11/25/23 06:40 Creatinine 1.39 mg/dL (0.55-1.02) H 11/25/23 06:40 Est GFR (MDRD) Af Amer 51 mL/min (>60) L 11/25/23 06:40 Est GFR (MDRD) Non-Af 42 mL/min (>60) L 11/25/23 06:40 BUN/Creatinine Ratio 15.8 RATIO (10-20) 11/25/23 06:40 Glucose 264 mg/dL (74-106) H 11/25/23 06:40 Vancomycin Trough 35.8 ug/mL (5.0-15.0) H 11/24/23 20:27 Random Vancomycin 15.9 ug/mL (0.0-15.0) H 11/25/23 18:30 Microbiology Microbiology: Microbiology 11/23/23 19:33 Urine, Clean Catch Urine Culture - Preliminary Streptococcus agalactiae (B) Beta streptococcus 11/23/23 18:35 Skin - Plantar Gram Stain - Final 11/23/23 18:35 Skin - Plantar Wound Culture - Preliminary Proteus mirabilis Staphylococcus aureus Beta streptococcus 11/24/23 02:35 Wound - Right Foot Skin and Soft Tissue MRSA/MSSA (PCR - Final Staphylococcus aureus Goal Trough Goal Trough: 15-20 mcg/mL Pharmacy Plan for Drug Dosing Pharmacy Plan for Drug Dosing: VANCOMYCIN LEVEL RECEIVED Current Vancomycin Dose: Current dose on hold due to elevated trough (previous dose was 1250mg q8h) Number of Doses Received: x1 loading dose, x2 1250mg doses Vancomycin Level: 15.9 Hours Since Last Dose: 28.5 hours since last 1250mg dose on 11/24/23 at 1352 Renal Function: SrCr 1.39 Renal Function Trend: SrCr increasing (was 0.82 on 11/24/23) Lab/Micro: Vancomycin Plan/Comments: recommend restarting vancomycin at 750mg q12h and monitoring renal function. Trough prior to the 4th dose Pending Level: 11/27/23 at 0830 Pharmacy Service will continue to monitor and adjust dosing as required. Follow-Up Labs Follow-Up Labs: Trough: Vancomycin (11/27/23 at 0830)
[2023-11-25 20:37] LABS: Bedside Glucose 155 mg/dL (74-106)
== END 2023-11-25 21:12 | disposition short-term general hospital (02) | DRG 607 ==
LOC: ED 11-24 00:44 → MS3 11-24 02:01
PROVIDERS: Admitting Provider Family Medicine; Emergency Provider Emergency Medicine; PCP Family Medicine; Visit Provider Internal Medicine
DX: R21 Rash and other nonspecific skin eruption (principal); M30.0 Polyarteritis nodosa; D84.9 Immunodeficiency, unspecified; Z68.41 Body mass index [BMI] 40.0-44.9, adult; I10 Essential (primary) hypertension; F32.A Depression, unspecified; J45.909 Unspecified asthma, uncomplicated; K76.0 Fatty (change of) liver, not elsewhere classified; E66.01 Morbid (severe) obesity due to excess calories; E86.0 Dehydration; E78.00 Pure hypercholesterolemia, unspecified; E87.6 Hypokalemia; F41.9 Anxiety disorder, unspecified; Z79.899 Other long term (current) drug therapy; Z98.41 Cataract extraction status, right eye; Z98.42 Cataract extraction status, left eye; Z98.51 Tubal ligation status; Z90.49 Acquired absence of other specified parts of digestive tract; Z79.60 Long term (current) use of unspecified immunomodulators and immunosuppressants
CPT/HCPCS: 36415; 80053; 80202; 81001; 82962; 83605; 83735; 84100; 85025; 85610; 85652; 85730; 86140; 87040; 87070; 87077; 87086; 87088; 87186; 87205; 87255; 87640; 94668; 97802; 99285; J7030; J7040; J7050; A4216; J2405

== ENCOUNTER → 2024-01-09 | Outpatient (CLI) | payer OTHER, SELFPAY | END | disposition home or self-care (01) | LOC: BIRAD 12:02 | PROVIDERS: PCP Family Medicine; Referring Provider Surgery; Visit Provider Surgery | DX: Z00.00 Encounter for general adult medical examination without abnormal findings (principal) ==